=== PATIENT | female | born 1975 | race Caucasian/White ===

== ENCOUNTER 2020-06-03 01:01 | Emergency (ER) | payer OTHER, SELFPAY ==
--- NOTE | 2020-06-03 01:08 | ED.HA ---
HPI - Headache General Chief Complaint: Headache Stated Complaint: MIGRAINE Time Seen by Provider: 06/03/20 01:08 Source: patient Mode of arrival: ambulatory Limitations: no limitations History of Present Illness MD elicited complaint: headache Pertinent past history: migraines Onset (ago): hour(s) (3) Onset description: gradually Location: frontal and occipital Severity: moderate Quality & Timing: throbbing and similar to previous headaches Exacerbating factors: none Relieving factors: rest and dark room Context: occurred at rest Associated symptoms: nausea and photophobia Treatments prior to arrival: none Related Data Previous Rx's Medication Instructions Recorded [id number]-[id number]-ctao 1 tab PO Q6H PRN #20 tab 06/03/20 cyclobenzaprine 10 mg PO TID PRN #14 tab 06/03/20 ondansetron 4 mg PO Q8H PRN #20 tab 06/03/20 Allergies Allergy/AdvReac Type Severity Reaction Status Date / Time aspirin [ASPIRIN] Allergy Unknown ASTHMA Unverified 04/21/20 17:29 gabapentin [From NEURONTIN] Allergy Unknown SI Unverified 04/21/20 17:29 ibuprofen Allergy Unknown Verified 03/02/19 00:00 nortriptyline [NORTRIPTYLINE] Allergy Unknown HIVES Unverified 04/21/20 17:29 NSAIDS (Non-Steroidal Allergy Unknown BLEEDING/ Unverified 04/21/20 17:29 Anti-Inflamma ASTHMA [NSAIDS] EXACERBATION Sulfa (Sulfonamide Allergy Unknown DEPRESSION Unverified 04/21/20 17:29 Antibiotics) [SULFA (SULFONAMIDE ANTIBIOTICS)] tramadol [TRAMADOL] Allergy Unknown WHEEZES Unverified 04/21/20 17:29 enoxaparin AdvReac Severe STATES SHE Unverified 04/21/20 17:29 HAS SEVERE BLEEDING heparin [HEPARIN] AdvReac Severe STATES SHE Unverified 04/21/20 17:29 HAS SEVERE BLEEDING SEAFOOD Allergy Intermediate BREATHING Uncoded 04/21/20 17:29 BLOOD THINNERS Allergy Unknown UNABLE DUE Uncoded 04/21/20 17:29 TO STROKE Review of Systems Review of Systems: Constitutional : No Fever, No Chills, No Fatigue ENT/Mouth : No sore throat, No Rhinorrhea Eyes: No Eye Pain, No Swelling, No Redness, pos photophobia Cardiovascular : No Chest Pain, No SOB, No Dyspnea on Exertion Respiratory : No Cough, No Sputum Gastrointestinal : pos Nausea, pos Vomiting, No Diarrhea, No abdominal Pain Genitourinary : No Dysuria, No Urinary Frequency, No Hematuria, Musculoskeletal : No joint pain, No Myalgias, No Joint Swelling Skin : No Skin Lesions, No rash Neuro : No Weakness, No Numbness, No Dizziness, positive Headache Psych : No Anxiety/Panic, No Depression Heme/Lymph: No Bruising, No Bleeding,No Lymphadenopathy Endocrine : No Polyuria, No Polydipsia All other systems reviewed and are negative [facility] Past Medical History Medical History Avascular necrosis of bone of left hip Carcinoid tumor Chronic back pain Depression Hemorrhagic cerebrovascular accident (CVA) Migraines Seizures Social History Social History (Updated 06/03/20 @ 01:17 by Barbara Jimenez DO) Alcohol intake: never Smoking Status: Current every day smoker Advance Directives: No Advance Directives Information Provided: No Physical Exam Vital Signs: Vital Signs: Vital Signs Temp Pulse Resp BP Pulse Ox 06/03/20 01:47 98.8 F 64 16 137/81 100 Body Mass Index 34.2 Appearance: Alert. Oriented X3. No acute distress. Eyes: Pupils equal, round and reactive to light. photophobia ENT: Pharynx normal. Neck: Normal inspection. Neck supple. no meningeal signs CVS: Normal heart rate and rhythm. Pulses normal. Respiratory: No respiratory distress. Breath sounds normal. Abdomen: Soft and nontender. Skin: Skin warm and dry. Normal skin color. Normal skin turgor. Extremities: No lower extremity edema. No calf ttp Neuro: Oriented X 3. No motor deficit. No sensory deficit. Course Course Course Narrative: patient feels better, stable for DC MDM - Headache MDM Narrative Medical decision making narrative: 44 yo female with headaches, prior hemorrhagic stroke, chronic migraines since stroke 3 hours tonight of typical migraine taking tylenol without relief, neuro intact, given chronic headaches and typical for her doubt ICH, no fevers/meningeal signs doubt [employer] infection, at this time will order medications for pain, no AC therapy Discharge Plan Discharge Clinical Impression: Migraine Qualifiers: Migraine type: unspecified Status migrainosus presence: without status migrainosus Intractability: not intractable Qualified Code(s): G43.909 - Migraine, unspecified, not intractable, without status migrainosus Patient Disposition: Home, Self-Care Instructions: Migraine Headache (ED), Acute Headache (ED) Additional Instructions: return to ED for any worsening symptoms or concerns Prescriptions: New cyclobenzaprine 10 mg tablet 10 mg PO TID PRN (Reason: muscle spasm) Qty: 14 RF: 0 ondansetron 4 mg tablet,disintegrating 4 mg PO Q8H PRN (Reason: nausea and vomiting) Qty: 20 RF: 0 rrcggovcpb-tefmnhxhuwlhi-nfnu 50-325-40 mg tablet 1 tab PO Q6H PRN (Reason: pain) Qty: 20 RF: 0 Referrals: Physician,Unknown [Primary Care Provider] - 2 days (PCP if not better)
[2020-06-03 01:47] VITALS: BP 137/81; PULSE 64; RESP 16; TEMP 37.1; O2SAT 100; BMI 34.2
[2020-06-03] MEDS: diphenhydrAMINE HCL 50 MG/ML VIAL 25 MG IVPUSH (02:06)
[2020-06-03] MEDS: 0.9 % Sodium Chloride 1,000 ML 999 ML IVCONT (02:06)
[2020-06-03] MEDS: Magnesium Sulfate/H2O 2 GM/50 ML PIGGYBACK IV (02:07)
[2020-06-03] MEDS: Metoclopramide HCl 10 MG/2 ML VIAL IVPUSH (02:07)
--- NOTE | 2020-06-03 02:08 | PC.NURSE ---
PT MEDICATED PER MAR, AWAITING IMPROVEMENT IN SYMPTOMS. REQUESTING COVID SWAB, DENIES SICK CONTACTS. JUST WANTS TO BE SURE. MD NOTIFIED, SWAB TO BE OBTAINED.
--- NOTE | 2020-06-03 02:56 | PC.NURSE ---
PT RESTING IN BED LIGHTS OFF SKIN PWD RESPIRATIONS EVEN UNLABORED. AWAITING FOR FURTHER IMPROVEMENT IN SYMPTOMS AND MD REEVAL.
[2020-06-03] MEDS: LORazepam 2 MG/ML VIAL 1 MG IVPUSH (03:33)
[2020-06-03 03:35] VITALS: BP 117/67; PULSE 60; RESP 18; TEMP 36.6; O2SAT 96
== END 2020-06-03 03:43 | disposition home or self-care (01) ==
PROVIDERS: Emergency Provider Emergency Medicine
DX: G43.909 Migraine, unspecified, not intractable, without status migrainosus (principal); F17.200 Nicotine dependence, unspecified, uncomplicated; Z11.59 Encounter for screening for other viral diseases; Z71.6 Tobacco abuse counseling; Z79.899 Other long term (current) drug therapy
CPT/HCPCS: 96365; 96366; 96375; 99284; J1200; J2060; J2765; J3475; U0003

== ENCOUNTER 2020-07-27 16:46 | Emergency (ER) | payer OTHER, SELFPAY ==
[2020-07-27 16:55] VITALS: BP 185/97; PULSE 82; RESP 16; TEMP 36.8; O2SAT 100; BMI 34.2
[2020-07-27 17:10] VITALS: BP 147/88; PULSE 68; RESP 18; TEMP 36.9; O2SAT 100; BMI 34.2
--- NOTE | 2020-07-27 17:11 | ED_ITS ---
HPI - Headache General Chief Complaint: Headache Stated Complaint: migraine Time Seen by Provider: 07/27/20 17:06 Source: patient Mode of arrival: ambulatory Limitations: no limitations History of Present Illness HPI Narrative: 45-year-old female presented with 2 days of headache, nausea, vomiting, and photophobia. Patient had a prior episode of migraines in the past usually get nerve block for her regular migraine but unable to schedule for because the COVID-19 outbreak, patient stated that the headache she has today is typical for her regular migraines. Describes the headache as constant for 2 days, it fluctuated 20 to severe it is 8/10. Has no fever or chills. Related Data Previous Rx's Medication Instructions Recorded jdzsaqgsig-pgamidnuholfs-tjdy 1 tab PO Q6H PRN #20 tab 06/03/20 cyclobenzaprine 10 mg PO TID PRN #14 tab 06/03/20 ondansetron 4 mg PO Q8H PRN #20 tab 06/03/20 Allergies Allergy/AdvReac Type Severity Reaction Status Date / Time aspirin [ASPIRIN] Allergy Unknown ASTHMA Verified 07/27/20 16:58 gabapentin [From NEURONTIN] Allergy Unknown SI Verified 07/27/20 16:58 ibuprofen Allergy Unknown Unknown Verified 07/27/20 16:58 nortriptyline [NORTRIPTYLINE] Allergy Unknown HIVES Verified 07/27/20 16:58 NSAIDS (Non-Steroidal Allergy Unknown BLEEDING/ Verified 07/27/20 16:58 Anti-Inflamma ASTHMA [NSAIDS] EXACERBATION Sulfa (Sulfonamide Allergy Unknown DEPRESSION Verified 07/27/20 16:58 Antibiotics) [SULFA (SULFONAMIDE ANTIBIOTICS)] tramadol [TRAMADOL] Allergy Unknown WHEEZES Verified 07/27/20 16:58 enoxaparin AdvReac Severe STATES SHE Verified 07/27/20 16:58 HAS SEVERE BLEEDING heparin [HEPARIN] AdvReac Severe STATES SHE Verified 07/27/20 16:58 HAS SEVERE BLEEDING SEAFOOD Allergy Intermediate BREATHING Uncoded 07/27/20 16:58 BLOOD THINNERS Allergy Unknown UNABLE DUE Uncoded 07/27/20 16:58 TO STROKE Review of Systems Review of Systems: All other systems are reviewed and are negative Constitutional: Reports as per HPI and Reports no additional constitutional complaints Eyes: Reports as per HPI and Reports no additional eye complaints Reports system reviewed and no additional complaints, except as documented Cardiovascular: Reports as per HPI and Reports no additional cardiovascular complaints Respiratory: Reports as per HPI and Reports no additional respiratory complaints Gastrointestinal: Reports as per HPI and Reports no additional gastrointestinal complaints Genitourinary: Reports no additional female genitourinary complaints Musculoskeletal: Reports no additional musculoskeletal complaints Skin/Breast: Reports system reviewed and no additional complaints, except as docu Psychiatric: Reports no additional psychiatric complaints Endocrine: Reports no additional endocrine complaints Hematologic/Lymphatic: Reports no additional hematologic/lymphatic complaints Allergic/Immunologic: Reports no additional allergic/immunologic complaints Reports system reviewed and no additional complaints, except as documented and Reports Abnormal speech present [facility] Past Medical History Medical History Avascular necrosis of bone of left hip Carcinoid tumor Chronic back pain Depression Hemorrhagic cerebrovascular accident (CVA) Migraines Seizures Social History Social History Alcohol intake: never Smoking Status: Current some day smoker Use of substances other than those prescribed or required for medical reasons: No Advance Directives: No Advance Directives Information Provided: No Physical Exam Vital Signs: Vital Signs: Last Vital Signs Temp 98.2 F 07/27/20 19:50 Pulse 58 07/27/20 19:50 Resp 20 07/27/20 19:50 BP 145/83 H 07/27/20 19:50 Pulse Ox 100 07/27/20 19:50 Body Mass Index 34.2 Vital signs have been reviewed as normal and appeared to be correct. Blood pressure on the high range. Heart rate normal. Respiration rate normal. Temperature normal. Oxygen saturation normal. Appearance: Alert. Oriented X3. No acute distress. Head: Normal external exam. Normocephalic. Atraumatic. No Gallardo signs noted. No raccoon eyes noted Eyes: PERRLA. EOMI. Conjunctiva and sclera normal. Eyelids normal. ENT: EAC normal. TM's Normal. Pharynx normal. Uvula midline. Moist mucous membranes. No trismus noted. No drooling noted. No muffled voice noted. Neck: Normal inspection. Neck supple. FROM. No adenopathy. Thyroid Normal. No meningeal signs. No neck mass noted. CVS: Normal heart rate and rhythm. Heart sound normal. No murmurs noted. Pulses normal throughout. Respiratory: No respiratory distress. Painless inspiration. Breath sounds normal. No wheezes/rales/rhonchi noted. Chest nontender. No accessory muscle usage noted or decreased air movement noted. Abdomen: Soft and nontender. Bowel sounds normal in all 4 quadrants. No distention noted. No organomegaly noted. No visible injury noted. Back: No CVA tenderness. Full range of motion noted. Skin: Skin warm and dry. Normal skin color. Normal skin turgor. No rashes/lesions/lacerations noted. Extremities: No lower extremity edema. Extremities exhibit normal range of motion. Extremities nontender. Neuro: Oriented X 3. No motor deficit. No sensory deficit. Reflexes normal. MDM - Headache MDM Narrative Medical decision making narrative: 45-year-old female with history of chronic migraines presented with headache for the past 2 days. Patient had unremarkable neuro exam, plain CT of the head showed no hemorrhage, patient had CT of the head and neck showed no cerebral aneurysms. Patient require multiple doses of morphine/Dilaudid in the emergency department to control her migraines. Patient will be discharged home and follow-up with neurologist. Lab Data Result diagrams: 07/27/20 19:28 07/27/20 19:28 Labs: Lab Results 07/27/20 07/27/20 Range/Units 19:28 19:28 WBC 8.4 (4.8-10.8) X10*3/uL RBC 4.75 (4.20-5.50) X10*6/uL Hgb 13.3 (12.0-16.0) g/dl Hct 41.8 (37-47) % MCV 88.0 (80-98) fL MCH 28.0 (27.0-33.0) pg MCHC 31.8 (31.0-35.0) g/dl RDW 13.2 (11.0-16.0) % Plt Count 178 (160-400) X10*3/uL MPV 10.4 (9.4-12.3) fL Immature Gran % (Auto) 0.4 (0.0-0.4) % Neut % (Auto) 61.7 (45-73) % Lymph % (Auto) 31.6 (20-40) % [place] % (Auto) 4.5 (2-11) % Eos % (Auto) 1.4 (0-4) % Baso % (Auto) 0.4 (0-2) % Lymph # (Auto) 2.7 (1.2-4.9) X10*3/uL [place] # (Auto) 0.4 (0.1-1.2) X10*3/uL Eos # (Auto) 0.1 (0.0-0.4) X10*3/uL Baso # (Auto) 0.0 (0.0-0.2) X10*3/uL Abs Immat Gran (auto) 0.03 (0.00-0.03) X10*3/uL Absolute Neuts (auto) 5.2 (2.0-8.3) X10*3/uL Absolute Nucleated RBC 0.000 (0.0-0.012) X10*3/uL Nucleated RBC % (auto) 0.0 (0.0-0.2) /100WBC Sodium 143 (135-145) mmol/L Potassium 4.1 (3.3-5.1) mmol/l Chloride 108 (96-108) mmol/L Carbon Dioxide 28 (22-29) mmol/L Anion Gap 11 L (12-20) BUN 14 (9-16) mg/dL Creatinine 0.83 (0.5-1.4) mg/dL Estim Creat Clear Calc 98.9 Estimated GFR > 60 Random Glucose 95 (60-115) mg/dL Calcium 8.5 (8.4-10.2) mg/dL Imaging Data CT head/CTA head and neck.: Radiologist's impression: CT head: There is no evidence of acute intracranial hemorrhage or territorial infarction. There is no loss of morrison to white matter differentiation. No abnormal mass effect or midline shift is seen. No extra-axial fluid collections are identified. There is no abnormal enhancement. The ventricles are normal in size. There is no abnormal attenuation within the brain parenchyma. The osseous structures and soft tissues are normal. The mastoid air cells and visualized portions of the paranasal sinuses are well aerated. CTA neck: The imaged aortic arch and origins of the great vessels are normal. The common carotid arteries are widely patent. The carotid bifurcations are normal. The cervical internal carotid arteries are normal. The vertebral arteries opacify normally and are of normal caliber. The soft tissues of the neck are unremarkable. Mild spondylosis at C5-C6. The imaged portions of the lungs are clear. CTA head: The intradural vertebral arteries and basilar artery are normal. The posterior cerebral arteries are widely patent. The internal carotid arteries are of normal caliber. The MERCEDEZ and MCA vascular complexes bilaterally are normal. The venous sinuses opacify normally. Discharge Plan Discharge Clinical Impression: Headache Qualifiers: Headache type: unspecified Headache chronicity pattern: chronic headache I ntractability: not intractable Qualified Code(s): R51.9 - Headache, unspecified Migraine Qualifiers: Migraine type: unspecified Status migrainosus presence: without status migrainosus Intractability: not intractable Qualified Code(s): G43.909 - Migraine, unspecified, not intractable, without status migrainosus Patient Disposition: Home, Self-Care Instructions: Acute Headache (ED) Prescriptions: No Action cyclobenzaprine 10 mg tablet 10 mg PO TID PRN (Reason: muscle spasm) Qty: 14 RF: 0 ondansetron 4 mg tablet,disintegrating 4 mg PO Q8H PRN (Reason: nausea and vomiting) Qty: 20 RF: 0 avmfwzjips-borcvkkxexjad-vyjl 50-325-40 mg tablet 1 tab PO Q6H PRN (Reason: pain) Qty: 20 RF: 0 Referrals: Physician,Unknown [Primary Care Provider] - 2 days
[2020-07-27] MEDS: diphenhydrAMINE HCL 50 MG/ML VIAL 25 MG IVPUSH (17:34)
[2020-07-27] MEDS: ondansetron HCL 4 MG/2 ML VIAL IVPUSH (17:34)
[2020-07-27] MEDS: 0.9 % Sodium Chloride 1,000 ML 999 ML IVCONT (17:34)
--- NOTE | 2020-07-27 17:42 | PC.NURSE ---
patient a&ox3, iv inserted, pt medicated per order, lights turned down per patient request, will continue to monitor.
[2020-07-27] MEDS: Morphine Sulfate 2 MG/ML CARTRIDGE 1 MG IVPUSH (18:24)
--- NOTE | 2020-07-27 18:43 | PC.NURSE ---
pt medicated per order
--- NOTE | 2020-07-27 18:52 | CT_ITS ---
EXAMINATION: CTA OF THE HEAD AND NECK CLINICAL INFORMATION: Rule out cerebral aneurysm. COMPARISON: Head CT from 06/24/2018. TECHNIQUE: Test bolus sequences followed by intravenous administration 70 mL of Omnipaque 350. Helical imaging was performed in the axial plane from the mediastinum to the skull vertex. Delayed postcontrast imaging of the head was also performed. The data was processed at the senior nuclear medicine technologist's workstation for generation of MIP sequences. Three-dimensional volume rendered reformatted images were also generated at an offline 3-D workstation. Stenoses are assessed in accordance with NASCET criteria unless otherwise indicated. This CT examination was performed using dose optimization techniques as appropriate, variously including the following: *Automated exposure control *Adjustment of mA and/or kV according to patient size (this includes techniques or standardized protocols for targeted exams where dose is matched to indication/reason for exam; i.e. extremities or head) *Use of iterative reconstruction technique DLP: 2426 mGy-cm. FINDINGS: CT head: There is no evidence of acute intracranial hemorrhage or territorial infarction. There is no loss of morrison to white matter differentiation. No abnormal mass effect or midline shift is seen. No extra-axial fluid collections are identified. There is no abnormal enhancement. The ventricles are normal in size. There is no abnormal attenuation within the brain parenchyma. The osseous structures and soft tissues are normal. The mastoid air cells and visualized portions of the paranasal sinuses are well aerated. CTA neck: The imaged aortic arch and origins of the great vessels are normal. The common carotid arteries are widely patent. The carotid bifurcations are normal. The cervical internal carotid arteries are normal. The vertebral arteries opacify normally and are of normal caliber. The soft tissues of the neck are unremarkable. Mild spondylosis at C5-C6. The imaged portions of the lungs are clear. CTA head: The intradural vertebral arteries and basilar artery are normal. The posterior cerebral arteries are widely patent. The internal carotid arteries are of normal caliber. The MERCEDEZ and MCA vascular complexes bilaterally are normal. The venous sinuses opacify normally. CT/CT angio head neck IMPRESSION: Normal CT angiogram of the head and neck. No acute process. Imaging findings reported to Dr. Gamboa at 8:54 PM on 07/27/2020.
[2020-07-27] MEDS: HYDROmorphone HCl 1 MG/ML SYRINGE IVPUSH (19:21)
--- NOTE | 2020-07-27 19:31 | PC.NURSE ---
patient medicated per order, labs obtained, vss, will continue to monitor.
[2020-07-27 19:35] LABS: MANUAL DIFF FLAG NO
[2020-07-27 19:37] LABS: Basophils Percent Auto 0.4 % (0-2); Eosinophils Absolute Auto 0.1 X10*3/uL (0.0-0.4); Eosinophils Percent Auto 1.4 % (0-4); Hematocrit 41.8 % (37-47); Hemoglobin 13.3 g/dl (12.0-16.0); Imm Gran Abs Auto 0.03 X10*3/uL (0.00-0.03); Imm Gran Pct Auto 0.4 % (0.0-0.4); Lymphocytes Absolute Auto 2.7 X10*3/uL (1.2-4.9); Lymphocytes Percent Auto 31.6 % (20-40); Mean Corpuscular HGB Conc 31.8 g/dl (31.0-35.0); Mean Platelet Volume 10.4 fL (9.4-12.3); Monocytes Absolute Auto 0.4 X10*3/uL (0.1-1.2); Monocytes Percent Auto 4.5 % (2-11); Neutrophils Absolute Auto 5.2 X10*3/uL (2.0-8.3); Neutrophils Percent Auto 61.7 % (45-73); Platelet Count 178 X10*3/uL (160-400); Red Blood Count 4.75 X10*6/uL (4.20-5.50); Red Cell Distribution Width 13.2 % (11.0-16.0); White Blood Count 8.4 X10*3/uL (4.8-10.8)
[2020-07-27 19:50] VITALS: BP 145/83; PULSE 58; RESP 20; TEMP 36.8; O2SAT 100
[2020-07-27 19:54] LABS: Anion Gap 11 (12-20); Blood Urea Nitrogen 14 mg/dL (9-16); Calcium 8.5 mg/dL (8.4-10.2); Carbon Dioxide 28 mmol/L (22-29); Chloride 108 mmol/L (96-108); Creatinine Clr Calc Pharmacy 98.9; Estimated Glomerular Filt Rate > 60; Glucose Random 95 mg/dL (60-115); Potassium 4.1 mmol/l (3.3-5.1); Sodium 143 mmol/L (135-145)
[2020-07-27] MEDS: iohexoL 350 MG/ML 100 ML INFUS..BTL IV (20:21)
[2020-07-27] MEDS: HYDROmorphone HCl 0.5 MG/0.5 ML SYRINGE IVPUSH (21:48)
[2020-07-27 21:55] VITALS: BP 128/82; PULSE 66; RESP 18; TEMP 36.8; O2SAT 99
== END 2020-07-27 22:20 | disposition home or self-care (01) ==
PROVIDERS: Emergency Provider Emergency Medicine
DX: G43.909 Migraine, unspecified, not intractable, without status migrainosus (principal); F17.200 Nicotine dependence, unspecified, uncomplicated
CPT/HCPCS: 36415; 70496; 70498; 80048; 85025; 96361; 96374; 96375; 96376; 99284; J1170; J1200; J2270; J2405; Q9967

== ENCOUNTER 2020-11-14 15:19 | Emergency (ER) | payer OTHER, SELFPAY ==
[2020-11-14 18:03] VITALS: BP 130/62; PULSE 70; RESP 18; TEMP 36.9; O2SAT 99; BMI 31.9
== END 2020-11-14 22:17 | disposition left against medical advice (07) ==
PROVIDERS: Emergency Provider Emergency Medicine
DX: G43.909 Migraine, unspecified, not intractable, without status migrainosus (principal)
CPT/HCPCS: 99281; 99282

== ENCOUNTER 2020-12-11 08:42 | Emergency (ER) | payer OTHER, SELFPAY ==
[2020-12-11 09:07] VITALS: BP 124/77; PULSE 78; RESP 18; TEMP 37.2; O2SAT 96; BMI 31.9
--- NOTE | 2020-12-11 09:37 | ED_ITS ---
HPI - Headache General Chief Complaint: Headache Stated Complaint: headache, back pain Time Seen by Provider: 12/11/20 09:10 Source: patient Mode of arrival: ambulatory Limitations: no limitations History of Present Illness HPI Narrative: 45-year-old female who presents emergency department for evaluation of migraine headache the patient states that she gets 3-4 migraine headaches per month. The patient states that 1 week prior she was treated with an anesthetic nerve block and often this causes her to have 1 migraine before the nerve block takes affect. The patient states that often takes 2 weeks after the nerve block before the number of migraine headaches diminished. She states that the headache woke her up from sleep at 3:00 a.m.. She describes the pain as a constant, stabbing, throbbing like sensation. The headache is located in the frontal area of her head, radiates to the top of her scalp and down her neck. She has associated nausea with no vomiting. She has associated photophobia and phonophobia. She states the pain is severe and is 20/10. The patient had a previous stroke and states she has residual left-sided weakness which is unchanged. She denied fever, chills, chest pain, shortness of breath, cough, abdominal pain. Related Data Previous Rx's Medication Instructions Recorded zlkjlricdp-nxmcrkyjucrce-ipjf 1 tab PO Q6H PRN #20 tab 06/03/20 cyclobenzaprine 10 mg PO TID PRN #14 tab 06/03/20 ondansetron 4 mg PO Q8H PRN #20 tab 06/03/20 qpqbtqgsqs-pjvkcemojdigw-qgoa 1 cap PO Q4H PRN #14 cap 12/11/20 [Fioricet] Allergies Allergy/AdvReac Type Severity Reaction Status Date / Time aspirin [ASPIRIN] Allergy Unknown ASTHMA Verified 07/27/20 16:58 gabapentin [From NEURONTIN] Allergy Unknown SI Verified 07/27/20 16:58 ibuprofen Allergy Unknown Unknown Verified 07/27/20 16:58 nortriptyline [NORTRIPTYLINE] Allergy Unknown HIVES Verified 07/27/20 16:58 NSAIDS (Non-Steroidal Allergy Unknown BLEEDING/ Verified 07/27/20 16:58 Anti-Inflamma ASTHMA [NSAIDS] EXACERBATION Sulfa (Sulfonamide Allergy Unknown DEPRESSION Verified 07/27/20 16:58 Antibiotics) [SULFA (SULFONAMIDE ANTIBIOTICS)] tramadol [TRAMADOL] Allergy Unknown WHEEZES Verified 07/27/20 16:58 enoxaparin AdvReac Severe STATES SHE Verified 07/27/20 16:58 HAS SEVERE BLEEDING heparin [HEPARIN] AdvReac Severe STATES SHE Verified 07/27/20 16:58 HAS SEVERE BLEEDING SEAFOOD Allergy Intermediate BREATHING Uncoded 07/27/20 16:58 BLOOD THINNERS Allergy Unknown UNABLE DUE Uncoded 07/27/20 16:58 TO STROKE Review of Systems Review of Systems: Yes all other systems are reviewed and are negative [facility] Past Medical History [facility] Narrative: The patient states she smokes cigarettes occasionally when she is stressed out, she denies alcohol and drug use. Medical History Avascular necrosis of bone of left hip Carcinoid tumor Chronic back pain Depression Hemorrhagic cerebrovascular accident (CVA) Migraines Seizures Social History Social History Alcohol intake: never Smoking Status: Light tobacco smoker Use of substances other than those prescribed or required for medical reasons: No Advance Directives: No Advance Directives Information Provided: No Physical Exam Vital Signs: Vital Signs: Last Vital Signs Temp 98.0 F 12/11/20 12:25 Pulse 66 12/11/20 12:41 Resp 16 12/11/20 12:41 BP 110/67 12/11/20 12:41 Pulse Ox 95 12/11/20 12:41 Body Mass Index 31.9 Const: General: cooperative, healthy appearing and in distress (Secondary to migraine headache) Orientation/consciousness: oriented to person and oriented to place Limitations: no limitations HENMT: Head: Yes normal to inspection, Yes normocephalic and Yes atraumatic Ears: external ears normal General nose exam: Normal external nose present Face and sinus: Yes normal facial exam Mouth: Normal oral and palatal mucosa present Throat: Yes posterior oropharynx normal Eyes: Periorbital: periorbital findings normal Eyelids: Yes eyelids normal Conjunctivae: conjunctivae normal Sclerae: sclerae normal Corneas: corneas normal Pupils: Equal, round and reactive pupils present Direct Ophthalmoscopy: normal light reflex Neck: Neck: Yes full ROM, Yes no lymphadenopathy, Yes no meningeal signs, Yes trachea midline and Yes supple Chest: Chest palpation & inspection: normal inspection of the chest and normal palpation of entire chest wall Resp: Effort & Inspection: normal respiratory effort and able to speak in complete sentences Auscultation: clear to auscultation bilaterally Cardio: Rate: regular rate Rhythm: regular rhythm Heart sounds: S1 normal heart sound present, S2 normal heart sound present and no murmurs GI: Inspection: Yes normal to inspection Palpation (GI): Soft to palpation, nontender, no guarding, not rigid and No hepatosplenomegaly present : General: Yes no CVA tenderness Back/Spine/Pelvis: Back: no CVA tenderness Cervical Spine: normal cervical lordosis Thoracic/Lumbar Spine: thoracic and lumbar spine normal to inspection Skin: Lesions: no lesions Rashes: no rashes Wounds: no wounds Neuro: General: oriented to person, oriented to place and no meningeal signs Cranial nerves: Yes CN's II-XII intact bilaterally and Yes Equal, round and reactive pupils present Cognition (Neuro): normal cognition Gait exam (Neuro): Other gait observations present (Left upper and lower extremity weakness, chronic ) Extrem: General: Yes normal to inspection and Yes full ROM Psych: Appearance: well kempt Mental Status: mental status grossly normal Speech and movement: Normal speech and movement present Affect: normal affect Attitude: cooperative Thought process: Normal thought process present Thought content: Normal thought content present Course Course Course Narrative: 45-year-old female who presents emergency department for evaluation of severe migraine headache, she has a history of migraine headaches and received an anesthetic injection 1 week prior. Patient's physical examination did reveal left-sided weakness but this is chronic secondary to an old stroke. The patient has been treated with IV medications in the emergency department in the past for headaches. She states that she can tolerate morphine IV. She was ordered to get morphine 4 mg IV, Reglan 10 mg IV and Benadryl 50 mg IV . 1325: The patient did have some improvement after the 1st dose of morphine IV, her pain went from 20/10 to 9.5/10. She was given a 2nd dose of morphine 4 mg IV and her pain is now down to 3/10. The patient states she is feeling significantly better and does want to go home. She was advised to continue taking her migraine medications as prescribed by her providers and to follow-up with her neurologist for re-evaluation and for further treatment. Prior to discharge, patient states that she was out of here sent requested a prescription, therefore prescribed Fioricet 1 tablet every 4 hours as needed for pain dispense 14. [facility] PAT search revealed that the patient does get prescriptions from 2 providers mainly for clonazepam. Discharge Plan Discharge Clinical Impression: Migraine Qualifiers: Migraine type: without aura Status migrainosus presence: without status migrainosus Intractability: not intractable Qualified Code(s): G43.009 - M igraine without aura, not intractable, without status migrainosus Patient Disposition: Home, Self-Care Instructions: Acute Headache (ED) Additional Instructions: Continue taking your medications as prescribed by your doctor for your migraine headaches. Follow-up with your doctor in 2 days. Please return to the emergency department if your symptoms get worse or if you develop any symptoms that are concerning to you. Prescriptions: New isenopxyon-ydsfjdsyxidlz-iniv [Fioricet] 50-300-40 mg capsule 1 cap PO Q4H PRN (Reason: pain) Qty: 14 RF: 0 No Action cyclobenzaprine 10 mg tablet 10 mg PO TID PRN (Reason: muscle spasm) Qty: 14 RF: 0 ondansetron 4 mg tablet,disintegrating 4 mg PO Q8H PRN (Reason: nausea and vomiting) Qty: 20 RF: 0 hftgvopqnr-tdtgmlszozial-lyms 50-325-40 mg tablet 1 tab PO Q6H PRN (Reason: pain) Qty: 20 RF: 0 Interventions: ED Discharge Assessment Last Done: 12/11/20 13:41 Discharge Date/Time: 12/11/20 13:45
[2020-12-11] MEDS: diphenhydrAMINE HCL 50 MG/ML VIAL IVPUSH (09:50)
[2020-12-11] MEDS: 0.9 % Sodium Chloride 1,000 ML 999 ML IV ×2 (09:50→12:23)
[2020-12-11] MEDS: Metoclopramide HCl 10 MG/2 ML VIAL IVPUSH (09:52)
[2020-12-11] MEDS: Morphine Sulfate 4 MG/ML CARTRIDGE IVPUSH ×2 (09:52→12:23)
[2020-12-11 09:54] VITALS: BP 110/75; PULSE 67; RESP 17
--- NOTE | 2020-12-11 09:57 | PC.NURSE ---
Pt medicated with benedryl, morphine, and reglan. She was instructed to not get up without calling for staff help. Call smith within reach.
[2020-12-11 10:46] VITALS: BP 111/69; PULSE 66; RESP 16; O2SAT 95
--- NOTE | 2020-12-11 10:46 | PC.NURSE ---
Pt resting with eyes closed. VSS.
[2020-12-11 12:25] VITALS: BP 108/70; PULSE 59; RESP 17; TEMP 36.7; O2SAT 97
--- NOTE | 2020-12-11 12:26 | PC.NURSE ---
Pt continues to have head pain. BP trending down slightly after first round of medications. MD aware. Additional morphine and IVF ordered/given.
[2020-12-11 12:41] VITALS: BP 110/67; PULSE 66; RESP 16; O2SAT 95
== END 2020-12-11 13:45 | disposition home or self-care (01) ==
PROVIDERS: Emergency Provider Emergency Medicine Emergency Medical Services
DX: G43.009 Migraine without aura, not intractable, without status migrainosus (principal); F17.200 Nicotine dependence, unspecified, uncomplicated; Z71.6 Tobacco abuse counseling; Z79.899 Other long term (current) drug therapy
CPT/HCPCS: 96365; 96366; 96375; 99284; J1200; J2270; J2765

== ENCOUNTER 2021-03-17 20:54 | Emergency (ER) | payer OTHER, SELFPAY ==
--- NOTE | ~2021-03-17 | XR_ITS ---
EXAMINATION: XR SHOULDER, LEFT CLINICAL INFORMATION: Pain. COMPARISON: None TECHNIQUE: Four views of the left shoulder. FINDINGS: There is no fracture or dislocation. The glenohumeral joint is well aligned. The joint space is maintained. The acromioclavicular joint is intact. Bowing of the left humeral shaft. XR/XR shoulder LT min 2V IMPRESSION: No fracture or malalignment.
[2021-03-17 21:04] VITALS: BP 129/78; PULSE 86; RESP 18; TEMP 36.6; O2SAT 98; BMI 32.3
[2021-03-18 00:46] VITALS: RESP 16
[2021-03-18] MEDS: Morphine Sulfate 2 MG/ML CARTRIDGE 1 MG IM (00:46)
--- NOTE | 2021-03-18 01:11 | ED.EXTPRO ---
HPI - Extremity Problem General Chief complaint: Extremity Problem Stated complaint: SHOULDER PAIN Time Seen by Provider: 03/18/21 00:18 Source: patient Mode of arrival: ambulatory Limitations: no limitations History of Present Illness HPI Narrative: Patient comes to the emergency room complaining of left-sided shoulder pain for a week. Patient denies any injury. Patient states whenever she tries to lift up her arm it hurts. Patient denies fever chills. Patient also complaining a rash in the right inguinal area, nonpainful, erythematous, slightly uncomfortable. Related Data Home Medications Medication Instructions Recorded Confirmed albuterol sulfate 90 mcg/actuation 2 puff PO Q4H PRN 01/20/21 01/20/21 aerosol inhaler albuterol sulfate 90 mcg/actuation 2 puff PO Q4H PRN 01/20/21 01/20/21 aerosol inhaler (Ventolin HFA) atorvastatin 40 mg tablet 1 tab PO DAILY 01/20/21 01/20/21 capsicum oleoresin 0.025 % topical 2 - 4 g TOPICAL BID 01/20/21 01/20/21 cream (DermacinRx Penetral) cariprazine 1.5 mg capsule 1 cap PO DAILY 01/20/21 01/20/21 (Vraylar) cariprazine 3 mg capsule (Vraylar) 1 cap PO DAILY 01/20/21 01/20/21 clonazepam 0.5 mg tablet 0.5 - 1 tab PO BID PRN 01/20/21 01/20/21 fluticasone propionate 110 1 puff PO BID 01/20/21 01/20/21 mcg/actuation HFA aerosol inhaler (Flovent HFA) hydroxyzine pamoate 50 mg capsule 1 cap PO TID 01/20/21 01/20/21 lidocaine 5 % topical ointment 1 g TOPICAL BID PRN 01/20/21 01/20/21 loratadine 10 mg tablet 1 tab PO DAILY PRN 01/20/21 01/20/21 nicotine 7 mg/24 hr daily 1 patch TOPICAL DAILY 01/20/21 01/20/21 transdermal patch prazosin 2 mg capsule 1 cap PO BEDTIME 01/20/21 01/20/21 quetiapine 300 mg tablet 1 tab PO BEDTIME 01/20/21 01/20/21 quetiapine 50 mg tablet 1 tab PO BID PRN 01/20/21 01/20/21 tizanidine 6 mg capsule 1 cap PO TID 01/20/21 01/20/21 topiramate 100 mg tablet 100 mg PO TID PRN 01/20/21 01/20/21 venlafaxine 150 mg 150 cap PO DAILY 01/20/21 01/20/21 capsule,extended release 24 hr venlafaxine 37.5 mg 1 cap PO DAILY 01/20/21 01/20/21 capsule,extended release 24 hr Previous Rx's Medication Instructions Recorded ondansetron 4 mg disintegrating 4 mg PO Q8H PRN #20 tab 06/03/20 tablet acetaminophen 500 mg capsule 500 mg PO Q6H PRN #10 cap 03/18/21 butenafine 1 % topical cream 1 appl TOPICAL BID 7 Days #30 g 03/18/21 (Lotrimin Ultra) Allergies Allergy/AdvReac Type Severity Reaction Status Date / Time aspirin [ASPIRIN] Allergy Unknown ASTHMA Verified 07/27/20 16:58 gabapentin [From NEURONTIN] Allergy Unknown SI Verified 07/27/20 16:58 ibuprofen Allergy Unknown Unknown Verified 07/27/20 16:58 nortriptyline [NORTRIPTYLINE] Allergy Unknown HIVES Verified 07/27/20 16:58 NSAIDS (Non-Steroidal Allergy Unknown BLEEDING/ Verified 07/27/20 16:58 Anti-Inflamma ASTHMA [NSAIDS] EXACERBATION Sulfa (Sulfonamide Allergy Unknown DEPRESSION Verified 07/27/20 16:58 Antibiotics) [SULFA (SULFONAMIDE ANTIBIOTICS)] tramadol [TRAMADOL] Allergy Unknown WHEEZES Verified 07/27/20 16:58 enoxaparin AdvReac Severe STATES SHE Verified 07/27/20 16:58 HAS SEVERE BLEEDING heparin [HEPARIN] AdvReac Severe STATES SHE Verified 07/27/20 16:58 HAS SEVERE BLEEDING SEAFOOD Allergy Intermediate BREATHING Uncoded 07/27/20 16:58 BLOOD THINNERS Allergy Unknown UNABLE DUE Uncoded 07/27/20 16:58 TO STROKE Review of Systems Review of Systems: Constitutional : No Weight loss, No Fever, No Chills, No Night Sweats, No Fatigue, No Malaise ENT/Mouth : No Hearing loss, No Ear Pain, No Nasal Congestion, No Sinus Pain, No Hoarseness, No sore throat, No Rhinorrhea, No Swallowing Difficulty Eyes: No Eye Pain, No Swelling, No Redness, No Foreign Body, No Discharge, No Vision Changes Cardiovascular : No Chest Pain, No SOB, No Dyspnea on Exertion, No Orthopnea, No Edema, No Palpitations Respiratory : No Cough, No Sputum, No Wheezing, No Smoke Exposure, No Dyspnea Gastrointestinal : No Nausea, No Vomiting, No Diarrhea, No Constipation, No abdominal Pain, No Hematochezia, No Melena Genitourinary : no irregular bleeding, No Dysuria, No Urinary Frequency, No Hematuria, No Urinary Incontinence, No Urgency, No Flank Pain, No Urinary Flow Changes, No Hesitancy Musculoskeletal : Complaining of left-sided shoulder pain No Myalgias, No Joint Swelling Skin : Complaining of an erythematous, slightly smelly rash in the right groin area Neuro : No Weakness, No Numbness, No Paresthesias, No Loss of Consciousness, No Dizziness, No Headache Psych : No Anxiety/Panic, No Depression, No SI/HI/AH/VH, No Social Issues, Heme/Lymph: No Bruising, No Bleeding,No Lymphadenopathy Endocrine : No Polyuria, No Polydipsia, No Temperature Intolerance [facility] Past Medical History Medical History Avascular necrosis of bone of left hip Carcinoid tumor Cervical cancer Chronic back pain Depression Hemorrhagic cerebrovascular accident (CVA) Migraines Seizures Surgical History H/O bilateral salpingo-oophorectomy History of appendectomy History of hysterectomy Social History Social History Alcohol intake: never Advance Directives: No Advance Directives Information Provided: No Patient : No Physical Exam Vital Signs: Vital Signs: Last Vital Signs Temp 98 F 03/17/21 21:04 Pulse 86 03/17/21 21:04 Resp 16 03/18/21 00:46 BP 129/78 03/17/21 21:04 Pulse Ox 98 03/17/21 21:04 Body Mass Index 32.3 Const: Other: Appearance: Alert. Oriented X3. No acute distress. Eyes: Pupils equal, round and reactive to light. ENT: Pharynx normal. Neck: Normal inspection. Neck supple. No lymph nodes noted. No crepitus CVS: Normal heart rate and rhythm. Pulses normal. Normal S1 and S2 Respiratory: No respiratory distress. Breath sounds normal. No Wheezing. No rales Abdomen: Soft and nontender. No rigidity. No distention. good BS x4 Skin: Skin warm and dry. Patient has candidal dermatitis in the right inguinal area, no vesicles, no painful to touch Extremities: Left shoulder is not tender to palpation, only hurts with shoulder abduction, no deformity, no erythema, no additional warmth Neuro: Oriented X 3. No motor deficit. No sensory deficit. Moving all extermities. No slurred speech. Course Course Course Narrative: I discussed the x-ray with the patient, no acute findings. I discussed the physical exam with the patient, patient likely having bursitis. I discussed with the patient that she will benefit from physical therapy and joint injections, she may need an MRI of her shoulder. I discussed with the patient she has Romy dermatitis. Patient states she has noticed this more often in her skin on skin folds after she started losing weight Ice into the patient's pharmacy tramadol, patient cannot take NSAIDs due to history of hemorrhagic CVA Discharge Plan Discharge Clinical Impression: Candidiasis Left shoulder pain Qualifiers: Chronicity: unspecified Qualified Code(s): M25.512 - Pain in left shoulder Patient Disposition: Home, Self-Care Instructions: Shoulder Bursitis (ED), Yeast Infection (ED) Additional Instructions: Please follow-up with your primary care physician tomorrow. If you have any worsening or new symptoms, please return to the emergency room or call 911 Prescriptions: New acetaminophen 500 mg capsule 500 mg PO Q6H PRN (Reason: pain) Qty: 10 RF: 0 butenafine [Lotrimin Ultra] 1 % cream 1 appl topical BID 7 Days Qty: 30 RF: 0 No Action atorvastatin 40 mg tablet 1 tab PO DAILY RF: 0 venlafaxine 37.5 mg capsule,extended release 24hr 1 cap PO DAILY RF: 0 quetiapine 300 mg tablet 1 tab PO BEDTIME RF: 0 clonazepam 0.5 mg tablet 0.5 - 1 tab PO BID PRN (Reason: panic attack) RF: 0 venlafaxine 150 mg capsule,extended release 24hr 150 cap PO DAILY RF: 0 hydroxyzine pamoate 50 mg capsule 1 cap PO TID RF: 0 albuterol sulfate [Ventolin HFA] 90 mcg/actuation HFA aerosol inhaler 2 puff PO Q4H PRN (Reason: wheezing) RF: 0 albuterol sulfate 90 mcg/actuation HFA aerosol inhaler 2 puff PO Q4H PRN (Reason: wheezing) RF: 0 topiramate 100 mg tablet 100 mg PO TID PRN (Reason: Anxiety) RF: 0 loratadine 10 mg tablet 1 tab PO DAILY PRN (Reason: allergies) RF: 0 prazosin 2 mg capsule 1 cap PO BEDTIME RF: 0 Flovent HFA 110 mcg/actuation HFA aerosol inhaler 1 puff PO BID RF: 0 nicotine 7 mg/24 hr patch 24 hour 1 patch topical DAILY RF: 0 tizanidine 6 mg capsule 1 cap PO TID RF: 0 quetiapine 50 mg tablet 1 tab PO BID PRN (Reason: Anxiety) RF: 0 lidocaine 5 % ointment 1 g topical BID PRN (Reason: Back Pain) RF: 0 Vraylar 1.5 mg capsule 1 cap PO DAILY RF: 0 Vraylar 3 mg capsule 1 cap PO DAILY RF: 0 DermacinRx Penetral 0.025 % cream 2 - 4 g topical BID RF: 0 ondansetron 4 mg tablet,disintegrating 4 mg PO Q8H PRN (Reason: nausea and vomiting) Qty: 20 RF: 0
== END 2021-03-18 01:22 | disposition home or self-care (01) ==
PROVIDERS: Emergency Provider Emergency Medicine
DX: M25.512 Pain in left shoulder (principal); B37.9 Candidiasis, unspecified
CPT/HCPCS: 73030; 96372; 99283; 99284; J2270

== ENCOUNTER 2021-05-03 10:44 | Emergency (ER) | payer OTHER, SELFPAY ==
--- NOTE | 2021-05-03 | ECG_ITS ---
Test Reason : CHEST PAIN Blood Pressure : / mmHG Vent. Rate : 081 BPM Atrial Rate : 081 BPM P-R Int : 000 ms QRS Dur : 072 ms QT Int : 400 ms P-R-T Axes : 000 040 051 degrees QTc Int : 464 ms Normal sinus rhythm Normal ECG When compared with ECG of 01-APR-2020 23:04, No significant change was found Referred By: Generic ED Physician Electronically Signed By:ROLA YORK
--- NOTE | ~2021-05-03 | XR_ITS ---
EXAMINATION: XR CHEST CLINICAL INFORMATION: Chest pain COMPARISON: Previous chest x-ray March 2016 TECHNIQUE: Frontal view of the chest was obtained. FINDINGS: No significant abnormality is noted involving the heart, lungs, mediastinum, bony thorax or soft tissues. XR/XR chest 1V IMPRESSION: Unremarkable examination.
--- NOTE | ~2021-05-03 | CT_ITS ---
EXAMINATION: CT HEAD WITHOUT CONTRAST CLINICAL INFORMATION: Severe headache COMPARISON: Previous head CT March 2018 TECHNIQUE: Contiguous axial imaging was performed from the skull base to vertex without intravenous administration of contrast. This CT examination was performed using dose optimization techniques as appropriate, variously including the following: *Automated exposure control *Adjustment of mA and/or kV according to patient size (this includes techniques or standardized protocols for targeted exams where dose is matched to indication/reason for exam; i.e. extremities or head) *Use of iterative reconstruction technique DLP: 715 mGy-cm FINDINGS: There is no evidence of acute intracranial hemorrhage or territorial infarction. No abnormal mass effect or midline shift is seen. [place] to white matter differentiation is well preserved. No extra-axial fluid collections are identified. The ventricles are normal in size. There is no abnormal attenuation within the brain parenchyma. The osseous structures and soft tissues are normal. The mastoid air cells and visualized portions of the paranasal sinuses are clear. CT/CT head/brain wo con IMPRESSION: Unremarkable exam.
[2021-05-03 11:42] VITALS: BP 128/80; PULSE 79; RESP 18; TEMP 37.2; O2SAT 99; BMI 33.5
--- NOTE | 2021-05-03 12:25 | ED.GENADULT ---
HPI - General Adult General Chief complaint: Headache Stated complaint: headache, chest pain Time Seen by Provider: 05/03/21 12:15 Source: patient History of Present Illness HPI narrative: This is a 45-year-old female with history of migraine headaches who complains of migraine that came on suddenly around midnight. She rates the headache as a 10/10 and has not experienced 1 this severe previously. Patient also notes that about 03:00 o'clock in morning she developed chest pain, like somebody sitting on her chest, off and on. She has had associated nausea and vomiting. She feels little short of breath. She notes that the light bothers her eyes. She states the pain radiates to the back of her neck. She also felt tingling in her fingers especially on the left-hand. She does have a history of elevated cholesterol and states that she had a mild heart attack a year and a half ago. She does smoke tobacco, but only when she is under stress at this point. She is to be a heavier smoker. Related Data Home Medications Medication Instructions Recorded Confirmed albuterol sulfate 90 mcg/actuation 2 puff PO Q4H PRN 01/20/21 01/20/21 aerosol inhaler albuterol sulfate 90 mcg/actuation 2 puff PO Q4H PRN 01/20/21 01/20/21 aerosol inhaler (Ventolin HFA) atorvastatin 40 mg tablet 1 tab PO DAILY 01/20/21 01/20/21 capsicum oleoresin 0.025 % topical 2 - 4 g TOPICAL BID 01/20/21 01/20/21 cream (DermacinRx Penetral) cariprazine 1.5 mg capsule 1 cap PO DAILY 01/20/21 01/20/21 (Vraylar) cariprazine 3 mg capsule (Vraylar) 1 cap PO DAILY 01/20/21 01/20/21 clonazepam 0.5 mg tablet 0.5 - 1 tab PO BID PRN 01/20/21 01/20/21 fluticasone propionate 110 1 puff PO BID 01/20/21 01/20/21 mcg/actuation HFA aerosol inhaler (Flovent HFA) hydroxyzine pamoate 50 mg capsule 1 cap PO TID 01/20/21 01/20/21 lidocaine 5 % topical ointment 1 g TOPICAL BID PRN 01/20/21 01/20/21 loratadine 10 mg tablet 1 tab PO DAILY PRN 01/20/21 01/20/21 nicotine 7 mg/24 hr daily 1 patch TOPICAL DAILY 01/20/21 01/20/21 transdermal patch prazosin 2 mg capsule 1 cap PO BEDTIME 01/20/21 01/20/21 quetiapine 300 mg tablet 1 tab PO BEDTIME 01/20/21 01/20/21 quetiapine 50 mg tablet 1 tab PO BID PRN 01/20/21 01/20/21 tizanidine 6 mg capsule 1 cap PO TID 01/20/21 01/20/21 topiramate 100 mg tablet 100 mg PO TID PRN 01/20/21 01/20/21 venlafaxine 150 mg 150 cap PO DAILY 01/20/21 01/20/21 capsule,extended release 24 hr venlafaxine 37.5 mg 1 cap PO DAILY 01/20/21 01/20/21 capsule,extended release 24 hr Previous Rx's Medication Instructions Recorded ondansetron 4 mg disintegrating 4 mg PO Q8H PRN #20 tab 06/03/20 tablet acetaminophen 500 mg capsule 500 mg PO Q6H PRN #10 cap 03/18/21 butenafine 1 % topical cream 1 appl TOPICAL BID 7 Days #30 g 03/18/21 (Lotrimin Ultra) prochlorperazine maleate 10 mg 10 mg PO Q6H PRN #10 tab 05/03/21 tablet (Compazine) Allergies Allergy/AdvReac Type Severity Reaction Status Date / Time aspirin [ASPIRIN] Allergy Unknown ASTHMA Verified 07/27/20 16:58 gabapentin [From NEURONTIN] Allergy Unknown SI Verified 07/27/20 16:58 ibuprofen Allergy Unknown Unknown Verified 07/27/20 16:58 nortriptyline [NORTRIPTYLINE] Allergy Unknown HIVES Verified 07/27/20 16:58 NSAIDS (Non-Steroidal Allergy Unknown BLEEDING/ Verified 07/27/20 16:58 Anti-Inflamma ASTHMA [NSAIDS] EXACERBATION Sulfa (Sulfonamide Allergy Unknown DEPRESSION Verified 07/27/20 16:58 Antibiotics) [SULFA (SULFONAMIDE ANTIBIOTICS)] tramadol [TRAMADOL] Allergy Unknown WHEEZES Verified 07/27/20 16:58 enoxaparin AdvReac Severe STATES SHE Verified 12/23/20 16:58 HAS SEVERE BLEEDING heparin [HEPARIN] AdvReac Severe STATES SHE Verified 07/27/20 16:58 HAS SEVERE BLEEDING SEAFOOD Allergy Intermediate BREATHING Uncoded 07/27/20 16:58 BLOOD THINNERS Allergy Unknown UNABLE DUE Uncoded 07/27/20 16:58 TO STROKE Review of Systems Review of Systems: Yes all other systems are reviewed and are negative Constitutional: Constitutional: Reports as per HPI, Denies fever(s) and Reports headache(s) Eyes: Eyes: Reports as per HPI and Reports no additional eye complaints ENT: Reports system reviewed and no additional complaints, except as documented, Reports as per HPI, Reports headache(s), Denies nasal congestion, Denies nasal discharge and Denies sore throat Cardiovascular: Cardiovascular: Reports as per HPI, Reports chest pain and Reports dyspnea Respiratory: Respiratory: Reports as per HPI, Denies cough and Reports dyspnea Gastrointestinal: Gastrointestinal: Reports as per HPI, Denies abdominal pain, Denies diarrhea, Reports nausea and Reports vomiting Genitourinary: Genitourinary: Reports as per HPI, Denies hematuria, Denies urinary frequency and Denies dysuria Musculoskeletal: Musculoskeletal: Reports no additional musculoskeletal complaints and Denies numbness Integumentary/Breasts: Skin/Breast: Reports as per HPI and Denies rash Neurologic: Reports as per HPI, Reports headache(s), Denies focal weakness, Denies numbness and Reports paresthesias Psychiatric: Psychiatric: Reports no additional psychiatric complaints and Reports as per HPI Endocrine: Endocrine: Reports no additional endocrine complaints and Reports as per HPI Hematologic/Lymphatic: Hematologic/Lymphatic: Reports no additional hematologic/lymphatic complaints, Reports as per HPI and Reports other (No peripheral edema) [facility] Past Medical History Medical History Avascular necrosis of bone of left hip Carcinoid tumor Cervical cancer Chronic back pain Depression Hemorrhagic cerebrovascular accident (CVA) Migraines Seizures Surgical History H/O bilateral salpingo-oophorectomy History of appendectomy History of hysterectomy Social History Social History Alcohol intake: never Advance Directives: No Patient : No Physical Exam Vital Signs: Vital Signs: Last Vital Signs Temp 98.1 F 05/03/21 14:14 Pulse 60 05/03/21 14:14 Resp 14 05/03/21 14:14 BP 99/54 L 05/03/21 14:14 Pulse Ox 97 05/03/21 14:14 Body Mass Index 33.5 Medical Decision Making MDM Narrative Medical decision making narrative: Patient with severe migraine headache, and later chest discomfort. Patient felt much better after medication was able to fall asleep. CT of the brain negative. Labs unremarkable. EKG and troponin were not concerning for acute coronary syndrome. Patient is safe for outpatient follow-up Lab Data Result diagrams: 05/03/21 12:39 05/03/21 12:39 Labs: Lab Results 05/03/21 05/03/21 05/03/21 Range/Units 12:39 12:39 12:39 WBC 13.9 H (4.8-10.8) X10*3/uL RBC 4.80 (4.20-5.50) X10*6/uL Hgb 13.6 (12.0-16.0) g/dl Hct 41.8 (37-47) % MCV 87.1 (80-98) fL MCH 28.3 (27.0-33.0) pg MCHC 32.5 (31.0-35.0) g/dl RDW 14.6 (11.0-16.0) % Plt Count 243 D (160-400) X10*3/uL MPV 9.9 (9.4-12.3) fL Immature Gran % (Auto) 0.6 H (0.0-0.4) % Neut % (Auto) 68.8 (45-73) % Lymph % (Auto) 24.3 (20-40) % [place] % (Auto) 5.6 (2-11) % Eos % (Auto) 0.6 (0-4) % Baso % (Auto) 0.1 (0-2) % Lymph # (Auto) 3.4 (1.2-4.9) X10*3/uL [place] # (Auto) 0.8 (0.1-1.2) X10*3/uL Eos # (Auto) 0.1 (0.0-0.4) X10*3/uL Baso # (Auto) 0.0 (0.0-0.2) X10*3/uL Abs Immat Gran (auto) 0.09 H (0.00-0.03) X10*3/uL Absolute Neuts (auto) 9.6 H (2.0-8.3) X10*3/uL Absolute Nucleated RBC 0.000 (0.0-0.012) X10*3/uL Nucleated RBC % (auto) 0.0 (0.0-0.2) /100WBC Sodium 142 (135-145) mmol/L Potassium 4.2 (3.3-5.1) mmol/L Chloride 108 (96-108) mmol/L Carbon Dioxide 27 (22-29) mmol/L Anion Gap 11 L (12-20) BUN 20 H (9-16) mg/dL Creatinine 0.82 (0.5-1.4) mg/dL Estim Creat Clear Calc 99.2 Estimated GFR > 60 Random Glucose 92 (60-115) mg/dL Calcium 9.3 (8.4-10.2) mg/dL Total Bilirubin 0.4 (0.0-1.0) mg/dL AST 14 (5-31) U/L ALT 19 (0-31) U/L Alkaline Phosphatase 103 (39-117) U/L Troponin I High Sens < 3.5 (<3.5-17.0) ng/L Total Protein 6.7 (6.5-8.0) g/dL Albumin 4.0 (3.5-5.0) g/dL Imaging Data CT scan - head: Radiologist's impression: here is no evidence of acute intracranial hemorrhage or territorial infarction. No abnormal mass effect or midline shift is seen. [place] to white matter differentiation is well preserved. No extra-axial fluid collections are identified. The ventricles are normal in size. There is no abnormal attenuation within the brain parenchyma. The osseous structures and soft tissues are normal. The mastoid air cells and visualized portions of the paranasal sinuses are clear. Impression: Unremarkable exam Chest x-ray: Radiologist's impression: No acute pathology ECG Data Attestation: I personally reviewed and interpreted this ECG as follows: Interpretation: Normal sinus rhythm with a rate of 81. Some baseline artifact. Possible slight ST elevation in the lateral leads Discharge Plan Discharge Clinical Impression: Migraine, Chest pain Patient Disposition: Home, Self-Care Instructions: Chest Pain (ED), Migraine Headache (ED) Additional Instructions: Follow-up with her primary care physician. Use acetaminophen for pain. Use Compazine as prescribed for nausea, which may also help with the migraine Prescriptions: New prochlorperazine maleate [Compazine] 10 mg tablet 10 mg PO Q6H PRN (Reason: nausea and vomiting) Qty: 10 RF: 0 No Action atorvastatin 40 mg tablet 1 tab PO DAILY RF: 0 venlafaxine 37.5 mg capsule,extended release 24hr 1 cap PO DAILY RF: 0 quetiapine 300 mg tablet 1 tab PO BEDTIME RF: 0 clonazepam 0.5 mg tablet 0.5 - 1 tab PO BID PRN (Reason: panic attack) RF: 0 venlafaxine 150 mg capsule,extended release 24hr 150 cap PO DAILY RF: 0 hydroxyzine pamoate 50 mg capsule 1 cap PO TID RF: 0 albuterol sulfate [Ventolin HFA] 90 mcg/actuation HFA aerosol inhaler 2 puff PO Q4H PRN (Reason: wheezing) RF: 0 albuterol sulfate 90 mcg/actuation HFA aerosol inhaler 2 puff PO Q4H PRN (Reason: wheezing) RF: 0 topiramate 100 mg tablet 100 mg PO TID PRN (Reason: Anxiety) RF: 0 loratadine 10 mg tablet 1 tab PO DAILY PRN (Reason: allergies) RF: 0 prazosin 2 mg capsule 1 cap PO BEDTIME RF: 0 Flovent HFA 110 mcg/actuation HFA aerosol inhaler 1 puff PO BID RF: 0 nicotine 7 mg/24 hr patch 24 hour 1 patch topical DAILY RF: 0 tizanidine 6 mg capsule 1 cap PO TID RF: 0 quetiapine 50 mg tablet 1 tab PO BID PRN (Reason: Anxiety) RF: 0 lidocaine 5 % ointment 1 g topical BID PRN (Reason: Back Pain) RF: 0 Vraylar 1.5 mg capsule 1 cap PO DAILY RF: 0 Vraylar 3 mg capsule 1 cap PO DAILY RF: 0 DermacinRx Penetral 0.025 % cream 2 - 4 g topical BID RF: 0 ondansetron 4 mg tablet,disintegrating 4 mg PO Q8H PRN (Reason: nausea and vomiting) Qty: 20 RF: 0 acetaminophen 500 mg capsule 500 mg PO Q6H PRN (Reason: pain) Qty: 10 RF: 0 butenafine [Lotrimin Ultra] 1 % cream 1 appl topical BID 7 Days Qty: 30 RF: 0 Discharge Date/Time: 05/03/21 14:55
[2021-05-03] MEDS: LORazepam 2 MG/ML VIAL 0.5 MG IVPUSH (12:44)
[2021-05-03] MEDS: Prochlorperazine Edisylate 10 MG/2 ML VIAL IVPUSH (12:45)
[2021-05-03 12:52] LABS: MANUAL DIFF FLAG NO
[2021-05-03 12:59] LABS: Basophils Percent Auto 0.1 % (0-2); Eosinophils Absolute Auto 0.1 X10*3/uL (0.0-0.4); Eosinophils Percent Auto 0.6 % (0-4); Hematocrit 41.8 % (37-47); Hemoglobin 13.6 g/dl (12.0-16.0); Imm Gran Abs Auto 0.09 X10*3/uL (0.00-0.03); Imm Gran Pct Auto 0.6 % (0.0-0.4); Lymphocytes Absolute Auto 3.4 X10*3/uL (1.2-4.9); Lymphocytes Percent Auto 24.3 % (20-40); Mean Corpuscular HGB Conc 32.5 g/dl (31.0-35.0); Mean Corpuscular Hemoglobin 28.3 pg (27.0-33.0); Mean Corpuscular Volume 87.1 fL (80-98); Mean Platelet Volume 9.9 fL (9.4-12.3); Monocytes Absolute Auto 0.8 X10*3/uL (0.1-1.2); Monocytes Percent Auto 5.6 % (2-11); Neutrophils Absolute Auto 9.6 X10*3/uL (2.0-8.3); Neutrophils Percent Auto 68.8 % (45-73); Platelet Count 243 X10*3/uL (160-400); Red Cell Distribution Width 14.6 % (11.0-16.0); White Blood Count 13.9 X10*3/uL (4.8-10.8)
[2021-05-03 13:17] LABS: Alanine Aminotransferase 19 U/L (0-31); Alkaline Phosphatase 103 U/L (39-117); Anion Gap 11 (12-20); Aspartate Amino Transferase 14 U/L (5-31); Bilirubin Total 0.4 mg/dL (0.0-1.0); Blood Urea Nitrogen 20 mg/dL (9-16); Calcium 9.3 mg/dL (8.4-10.2); Carbon Dioxide 27 mmol/L (22-29); Chloride 108 mmol/L (96-108); Creatinine Clr Calc Pharmacy 99.2; Estimated Glomerular Filt Rate > 60; Glucose Random 92 mg/dL (60-115); Potassium 4.2 mmol/L (3.3-5.1); Sodium 142 mmol/L (135-145); Total Protein 6.7 g/dL (6.5-8.0)
[2021-05-03 13:18] LABS: Troponin-I High Sensitivity < 3.5 ng/L (<3.5-17.0)
[2021-05-03 14:14] VITALS: BP 99/54; PULSE 60; RESP 14; TEMP 36.7; O2SAT 97
== END 2021-05-03 14:55 | disposition home or self-care (01) ==
PROVIDERS: Emergency Provider Emergency Medicine; PCP Physician Assistant
DX: G43.909 Migraine, unspecified, not intractable, without status migrainosus (principal); R07.89 Other chest pain; Z79.899 Other long term (current) drug therapy
CPT/HCPCS: 36415; 70450; 71045; 80053; 84484; 85025; 93005; 96374; 96375; 99283; 99284; J2060

== ENCOUNTER 2021-08-21 21:08 | Emergency (ER) | payer OTHER, SELFPAY ==
[2021-08-21 21:30] VITALS: BP 128/84; PULSE 93; RESP 18; TEMP 37; O2SAT 99; BMI 36.3
[2021-08-22 01:32] VITALS: BP 145/95; PULSE 98; RESP 14; O2SAT 95
--- NOTE | 2021-08-22 03:13 | ED_ITS ---
HPI - Headache General Chief Complaint: Headache Stated Complaint: migraine Time Seen by Provider: 08/22/21 00:58 History of Present Illness HPI Narrative: Patient is a 46-year-old female presents today with having headaches. History of migraine headaches. The symptoms ongoing for few days. It is diffuse. It is worse with light. Associated with nausea. There is no focal weakness. Patient is from home. Has a long history of migraine in the past. It is throbbing. It radiates to neck is not associated with any fever. Related Data Home Medications Medication Instructions Recorded Confirmed albuterol sulfate 90 mcg/actuation 2 puff PO Q4H PRN 01/20/21 01/20/21 aerosol inhaler albuterol sulfate 90 mcg/actuation 2 puff PO Q4H PRN 01/20/21 01/20/21 aerosol inhaler (Ventolin HFA) atorvastatin 40 mg tablet 1 tab PO DAILY 01/20/21 01/20/21 capsicum oleoresin 0.025 % topical 2 - 4 g TOPICAL BID 01/20/21 01/20/21 cream (DermacinRx Penetral) cariprazine 1.5 mg capsule 1 cap PO DAILY 01/20/21 01/20/21 (Vraylar) cariprazine 3 mg capsule (Vraylar) 1 cap PO DAILY 01/20/21 01/20/21 clonazepam 0.5 mg tablet 0.5 - 1 tab PO BID PRN 01/20/21 01/20/21 fluticasone propionate 110 1 puff PO BID 01/20/21 01/20/21 mcg/actuation HFA aerosol inhaler (Flovent HFA) hydroxyzine pamoate 50 mg capsule 1 cap PO TID 01/20/21 01/20/21 lidocaine 5 % topical ointment 1 g TOPICAL BID PRN 01/20/21 01/20/21 loratadine 10 mg tablet 1 tab PO DAILY PRN 01/20/21 01/20/21 nicotine 7 mg/24 hr daily 1 patch TOPICAL DAILY 01/20/21 01/20/21 transdermal patch prazosin 2 mg capsule 1 cap PO BEDTIME 01/20/21 01/20/21 quetiapine 300 mg tablet 1 tab PO BEDTIME 01/20/21 01/20/21 quetiapine 50 mg tablet 1 tab PO BID PRN 01/20/21 01/20/21 tizanidine 6 mg capsule 1 cap PO TID 01/20/21 01/20/21 topiramate 100 mg tablet 100 mg PO TID PRN 01/20/21 01/20/21 venlafaxine 150 mg 150 cap PO DAILY 01/20/21 01/20/21 capsule,extended release 24 hr venlafaxine 37.5 mg 1 cap PO DAILY 01/20/21 01/20/21 capsule,extended release 24 hr Previous Rx's Medication Instructions Recorded ondansetron 4 mg disintegrating 4 mg PO Q8H PRN #20 tab 06/03/20 tablet acetaminophen 500 mg capsule 500 mg PO Q6H PRN #10 cap 03/18/21 butenafine 1 % topical cream 1 appl TOPICAL BID 7 Days #30 g 03/18/21 (Lotrimin Ultra) prochlorperazine maleate 10 mg 10 mg PO Q6H PRN #10 tab 05/03/21 tablet (Compazine) Allergies Allergy/AdvReac Type Severity Reaction Status Date / Time aspirin [ASPIRIN] Allergy Unknown ASTHMA Verified 07/27/20 16:58 gabapentin [From NEURONTIN] Allergy Unknown SI Verified 07/27/20 16:58 ibuprofen Allergy Unknown Unknown Verified 07/27/20 16:58 nortriptyline [NORTRIPTYLINE] Allergy Unknown HIVES Verified 07/27/20 16:58 NSAIDS (Non-Steroidal Allergy Unknown BLEEDING/ Verified 07/27/20 16:58 Anti-Inflamma ASTHMA [NSAIDS] EXACERBATION Sulfa (Sulfonamide Allergy Unknown DEPRESSION Verified 07/27/20 16:58 Antibiotics) [SULFA (SULFONAMIDE ANTIBIOTICS)] tramadol [TRAMADOL] Allergy Unknown WHEEZES Verified 07/27/20 16:58 enoxaparin AdvReac Severe STATES SHE Verified 07/27/20 16:58 HAS SEVERE BLEEDING heparin [HEPARIN] AdvReac Severe STATES SHE Verified 07/27/20 16:58 HAS SEVERE BLEEDING SEAFOOD Allergy Intermediate BREATHING Uncoded 07/27/20 16:58 BLOOD THINNERS Allergy Unknown UNABLE DUE Uncoded 07/27/20 16:58 TO STROKE Review of Systems Review of Systems: Positive headache Positive photophobia Positive nausea All system reviewed otherwise negative PMFSH Past Medical History Attestation statement: The following information was validated with the patient. Medical History Avascular necrosis of bone of left hip Carcinoid tumor Cervical cancer Chronic back pain Depression Hemorrhagic cerebrovascular accident (CVA) Migraines Seizures Surgical History H/O bilateral salpingo-oophorectomy History of appendectomy History of hysterectomy Social History Social History Alcohol intake: never Advance Directives: No Physical Exam Vital Signs: Vital Signs: Last Vital Signs Temp 98.6 F 08/21/21 21:30 Pulse 98 08/22/21 01:32 Resp 14 08/22/21 01:32 BP 145/95 H 08/22/21 01:32 Pulse Ox 95 08/22/21 01:32 BMI result Body Mass Index 36.3 Appearance: Alert. Oriented X3. No acute distress. Eyes: Pupils equal, round and reactive to light. ENT: Pharynx normal. Neck: Normal inspection. Neck supple. No lymph nodes noted. No crepitus CVS: Normal heart rate and rhythm. Pulses normal. Normal S1 and S2 Respiratory: No respiratory distress. Breath sounds normal. No Wheezing. No rales Abdomen: Soft and nontender. No rigidity. No distention. good BS x4 Skin: Skin warm and dry. Normal skin color. Normal skin turgor. Extremities: No lower extremity edema. Neurovascular intact to all extremities. No Lacerations. No Rash Neuro: Oriented X 3. No motor deficit. No sensory deficit. Moving all extermities. No slurred speech MDM - Headache MDM Narrative Medical decision making narrative: Patient's symptoms similar to previous bouts of migraine headache. Given Reglan, Benadryl, IV fluid. Symptoms moderately relief. Given a small dose of Dilaudid symptoms improved. Will discharge patient home. No evidence for meningitis. In stable condition. Differential Diagnosis Differential diagnosis: Likely migraine Medical Records Attestation: I reviewed the patient's medical records. Lab Data Attestation: I reviewed the patient's lab results. Result diagrams: 08/22/21 04:15 08/22/21 04:15 Labs: Lab Results 08/22/21 08/22/21 08/22/21 Range/Units 04:15 04:15 04:15 WBC 9.0 (4.8-10.8) X10*3/uL RBC 4.54 (4.20-5.50) X10*6/uL Hgb 13.0 (12.0-16.0) g/dl Hct 40.3 (37.0-47.0) % MCV 88.8 (80.0-98.0) fL MCH 28.6 (27.0-33.0) pg MCHC 32.3 (31.0-35.0) g/dl RDW 13.9 (11.0-16.0) % Plt Count 195 (160-400) X10*3/uL MPV 10.1 (9.4-12.3) fL Immature Gran % (Auto) 0.6 H (0.0-0.4) % Neut % (Auto) 62.0 (45-73) % Lymph % (Auto) 30.3 (20-40) % [place] % (Auto) 5.8 (2-11) % Eos % (Auto) 1.0 (0-4) % Baso % (Auto) 0.3 (0-2) % Lymph # (Auto) 2.7 (1.2-4.9) X10*3/uL [place] # (Auto) 0.5 (0.1-1.2) X10*3/uL Eos # (Auto) 0.1 (0.0-0.4) X10*3/uL Baso # (Auto) 0.0 (0.0-0.2) X10*3/uL Abs Immat Gran (auto) 0.05 H (0.00-0.03) X10*3/uL Absolute Neuts (auto) 5.6 (2.0-8.3) x10*3/uL Absolute Nucleated RBC 0.000 (0.0-0.012) X10*3/uL Nucleated RBC % (auto) 0.0 (0.0-0.2) /100WBC Sodium 140 (135-145) mmol/L Potassium 4.3 (3.3-5.1) mmol/L Chloride 107 (96-108) mmol/L Carbon Dioxide 26 (22-29) mmol/L Anion Gap 11 L (12-20) BUN 16 (9-16) mg/dL Creatinine 0.87 (0.5-1.4) mg/dL Estim Creat Clear Calc 96.4 Estimated GFR > 60 Random Glucose 99 (60-115) mg/dL Calcium 8.9 (8.4-10.2) mg/dL COVID-19 ([facility]) Negative (Negative) COVID-19 Clin Com See Note Discharge Plan Discharge Clinical Impression: Migraine Patient Disposition: Home, Self-Care Instructions: Migraine Headache (ED) Prescriptions: No Action atorvastatin 40 mg tablet 1 tab PO DAILY RF: 0 venlafaxine 37.5 mg capsule,extended release 24hr 1 cap PO DAILY RF: 0 quetiapine 300 mg tablet 1 tab PO BEDTIME RF: 0 clonazepam 0.5 mg tablet 0.5 - 1 tab PO BID PRN (Reason: panic attack) RF: 0 venlafaxine 150 mg capsule,extended release 24hr 150 cap PO DAILY RF: 0 hydroxyzine pamoate 50 mg capsule 1 cap PO TID RF: 0 albuterol sulfate [Ventolin HFA] 90 mcg/actuation HFA aerosol inhaler 2 puff PO Q4H PRN (Reason: wheezing) RF: 0 albuterol sulfate 90 mcg/actuation HFA aerosol inhaler 2 puff PO Q4H PRN (Reason: wheezing) RF: 0 topiramate 100 mg tablet 100 mg PO TID PRN (Reason: Anxiety) RF: 0 loratadine 10 mg tablet 1 tab PO DAILY PRN (Reason: allergies) RF: 0 prazosin 2 mg capsule 1 cap PO BEDTIME RF: 0 Flovent HFA 110 mcg/actuation HFA aerosol inhaler 1 puff PO BID RF: 0 nicotine 7 mg/24 hr patch 24 hour 1 patch topical DAILY RF: 0 tizanidine 6 mg capsule 1 cap PO TID RF: 0 quetiapine 50 mg tablet 1 tab PO BID PRN (Reason: Anxiety) RF: 0 lidocaine 5 % ointment 1 g topical BID PRN (Reason: Back Pain) RF: 0 Vraylar 1.5 mg capsule 1 cap PO DAILY RF: 0 Vraylar 3 mg capsule 1 cap PO DAILY RF: 0 DermacinRx Penetral 0.025 % cream 2 - 4 g topical BID RF: 0 ondansetron 4 mg tablet,disintegrating 4 mg PO Q8H PRN (Reason: nausea and vomiting) Qty: 20 RF: 0 acetaminophen 500 mg capsule 500 mg PO Q6H PRN (Reason: pain) Qty: 10 RF: 0 butenafine [Lotrimin Ultra] 1 % cream 1 appl topical BID 7 Days Qty: 30 RF: 0 prochlorperazine maleate [Compazine] 10 mg tablet 10 mg PO Q6H PRN (Reason: nausea and vomiting) Qty: 10 RF: 0 Referrals: Physician,Unknown J [Primary Care Provider] - 2 days
[2021-08-22] MEDS: diphenhydrAMINE HCL 50 MG/ML VIAL 25 MG IVPUSH (03:50)
[2021-08-22] MEDS: 0.9 % Sodium Chloride 1,000 ML 999 ML IV (03:50)
[2021-08-22] MEDS: Prochlorperazine Edisylate 10 MG/2 ML VIAL IVPUSH (03:51)
--- NOTE | 2021-08-22 03:55 | PC.NURSE ---
Iv placed, medicated per mar and warm blanket given.
[2021-08-22 04:21] LABS: MANUAL DIFF FLAG NO
[2021-08-22 04:22] LABS: Basophils Percent Auto 0.3 % (0-2); Eosinophils Absolute Auto 0.1 X10*3/uL (0.0-0.4); Hematocrit 40.3 % (37.0-47.0); Imm Gran Abs Auto 0.05 X10*3/uL (0.00-0.03); Imm Gran Pct Auto 0.6 % (0.0-0.4); Lymphocytes Absolute Auto 2.7 X10*3/uL (1.2-4.9); Lymphocytes Percent Auto 30.3 % (20-40); Mean Corpuscular HGB Conc 32.3 g/dl (31.0-35.0); Mean Corpuscular Hemoglobin 28.6 pg (27.0-33.0); Mean Corpuscular Volume 88.8 fL (80.0-98.0); Mean Platelet Volume 10.1 fL (9.4-12.3); Monocytes Absolute Auto 0.5 X10*3/uL (0.1-1.2); Monocytes Percent Auto 5.8 % (2-11); Neutrophils Absolute Auto 5.6 x10*3/uL (2.0-8.3); Platelet Count 195 X10*3/uL (160-400); Red Blood Count 4.54 X10*6/uL (4.20-5.50); Red Cell Distribution Width 13.9 % (11.0-16.0)
[2021-08-22 04:37] LABS: COVID-19 Test Negative (Negative); IDNOW Serial# 9DD0AD1C
[2021-08-22 04:42] LABS: Anion Gap 11 (12-20); Blood Urea Nitrogen 16 mg/dL (9-16); Calcium 8.9 mg/dL (8.4-10.2); Carbon Dioxide 26 mmol/L (22-29); Chloride 107 mmol/L (96-108); Creatinine Clr Calc Pharmacy 96.4; Estimated Glomerular Filt Rate > 60; Glucose Random 99 mg/dL (60-115); Potassium 4.3 mmol/L (3.3-5.1); Sodium 140 mmol/L (135-145)
[2021-08-22] MEDS: HYDROmorphone HCl 0.5 MG/0.5 ML SYRINGE IVPUSH (05:19)
--- NOTE | 2021-08-22 05:20 | PC.NURSE ---
pt still having a headache, per provider medicated per mar.
== END 2021-08-22 06:06 | disposition home or self-care (01) ==
PROVIDERS: Emergency Provider Emergency Medicine Emergency Medical Services
DX: G43.909 Migraine, unspecified, not intractable, without status migrainosus (principal); Z20.822 Contact with and (suspected) exposure to COVID-19
CPT/HCPCS: 36415; 80048; 85025; 87635; 96361; 96374; 96375; 99283; 99284; J1170; J1200

== ENCOUNTER 2021-08-23 08:12 | Emergency (ER) | payer OTHER, SELFPAY ==
--- NOTE | ~2021-08-23 | CT_ITS ---
EXAMINATION: CT HEAD WITHOUT CONTRAST CLINICAL INFORMATION: Migraine. COMPARISON: Previous head CT most recent April 2021 TECHNIQUE: Contiguous axial imaging was performed from the skull base to vertex without intravenous administration of contrast. This CT examination was performed using dose optimization techniques as appropriate, variously including the following: *Automated exposure control *Adjustment of mA and/or kV according to patient size (this includes techniques or standardized protocols for targeted exams where dose is matched to indication/reason for exam; i.e. extremities or head) *Use of iterative reconstruction technique DLP: 793 mGy-cm FINDINGS: There is no evidence of acute intracranial hemorrhage or territorial infarction. No abnormal mass effect or midline shift is seen. [place] to white matter differentiation is well preserved. No extra-axial fluid collections are identified. The ventricles are normal in size. There is no abnormal attenuation within the brain parenchyma. The osseous structures and soft tissues are normal. There is membranous soft tissue thickening in the sphenoid sinus. This is new from April 2021 exam. The mastoid air cells and visualized portions of the paranasal sinuses are otherwise clear. CT/CT head/brain wo con IMPRESSION: No acute intracranial pathology. Mild inflammatory changes in the sphenoid sinus new from April 2021 exam.
[2021-08-23 08:21] VITALS: BP 155/90; PULSE 91; RESP 18; TEMP 36.1; O2SAT 97; BMI 35.6
--- NOTE | 2021-08-23 09:16 | ED_ITS ---
HPI - Headache General Chief Complaint: Headache Stated Complaint: Migraine Time Seen by Provider: 08/23/21 09:16 Source: patient Mode of arrival: ambulatory Limitations: no limitations History of Present Illness HPI Narrative: This is a 46-year-old female past medical history significant for migraine headaches, CVA, carcinoid tumor of the appendix presenting to the emergency department with complaints a throbbing migraine headache she reports it feels like her typical migrane, expect its a little stronger than usual, this migrane started on saturday. Reports photophobia, sensitivity to smells, nausea, and vomiting. She typically gets about 2 migraine a month. Patient typically gets nerve blocks for her migraines however her next appointment is not until September. Patient's headache is diffuse and she cannot pinpoint 1 particular part of her head. She tells me it has been happening more frequently. She denies dizziness, vision changes, vomiting , abdominal pain, chest pain, shortness of breath MD elicited complaint: migraine Pertinent past history: migraines Onset (ago): day(s) (3) Onset description: gradually Location: generalized Severity: severe Quality & Timing: throbbing Exacerbating factors: light and noise Relieving factors: nothing Context: occurred at rest Associated symptoms: nausea Treatments prior to arrival: acetaminophen Related Data Home Medications Medication Instructions Recorded Confirmed albuterol sulfate 90 mcg/actuation 2 puff PO Q4H PRN 01/20/21 01/20/21 aerosol inhaler albuterol sulfate 90 mcg/actuation 2 puff PO Q4H PRN 01/20/21 01/20/21 aerosol inhaler (Ventolin HFA) atorvastatin 40 mg tablet 1 tab PO DAILY 01/20/21 01/20/21 capsicum oleoresin 0.025 % topical 2 - 4 g TOPICAL BID 01/20/21 01/20/21 cream (DermacinRx Penetral) cariprazine 1.5 mg capsule 1 cap PO DAILY 01/20/21 01/20/21 (Vraylar) cariprazine 3 mg capsule (Vraylar) 1 cap PO DAILY 01/20/21 01/20/21 clonazepam 0.5 mg tablet 0.5 - 1 tab PO BID PRN 01/20/21 01/20/21 fluticasone propionate 110 1 puff PO BID 01/20/21 01/20/21 mcg/actuation HFA aerosol inhaler (Flovent HFA) hydroxyzine pamoate 50 mg capsule 1 cap PO TID 01/20/21 01/20/21 lidocaine 5 % topical ointment 1 g TOPICAL BID PRN 01/20/21 01/20/21 loratadine 10 mg tablet 1 tab PO DAILY PRN 01/20/21 01/20/21 nicotine 7 mg/24 hr daily 1 patch TOPICAL DAILY 01/20/21 01/20/21 transdermal patch prazosin 2 mg capsule 1 cap PO BEDTIME 01/20/21 01/20/21 quetiapine 300 mg tablet 1 tab PO BEDTIME 01/20/21 01/20/21 quetiapine 50 mg tablet 1 tab PO BID PRN 01/20/21 01/20/21 tizanidine 6 mg capsule 1 cap PO TID 01/20/21 01/20/21 topiramate 100 mg tablet 100 mg PO TID PRN 01/20/21 01/20/21 venlafaxine 150 mg 150 cap PO DAILY 01/20/21 01/20/21 capsule,extended release 24 hr venlafaxine 37.5 mg 1 cap PO DAILY 01/20/21 01/20/21 capsule,extended release 24 hr Previous Rx's Medication Instructions Recorded ondansetron 4 mg disintegrating 4 mg PO Q8H PRN #20 tab 06/03/20 tablet acetaminophen 500 mg capsule 500 mg PO Q6H PRN #10 cap 03/18/21 butenafine 1 % topical cream 1 appl TOPICAL BID 7 Days #30 g 03/18/21 (Lotrimin Ultra) prochlorperazine maleate 10 mg 10 mg PO Q6H PRN #10 tab 05/03/21 tablet (Compazine) acetaminophen 500 mg tablet 500 mg PO Q6H PRN #30 tab 08/23/21 (Tylenol Extra Strength) ondansetron 4 mg disintegrating 4 mg PO ONCE PRN #10 tab 08/23/21 tablet Allergies Allergy/AdvReac Type Severity Reaction Status Date / Time aspirin [ASPIRIN] Allergy Unknown ASTHMA Verified 07/27/20 16:58 gabapentin [From NEURONTIN] Allergy Unknown SI Verified 07/27/20 16:58 ibuprofen Allergy Unknown Unknown Verified 07/27/20 16:58 nortriptyline [NORTRIPTYLINE] Allergy Unknown HIVES Verified 07/27/20 16:58 NSAIDS (Non-Steroidal Allergy Unknown BLEEDING/ Verified 07/27/20 16:58 Anti-Inflamma ASTHMA [NSAIDS] EXACERBATION Sulfa (Sulfonamide Allergy Unknown DEPRESSION Verified 07/27/20 16:58 Antibiotics) [SULFA (SULFONAMIDE ANTIBIOTICS)] tramadol [TRAMADOL] Allergy Unknown WHEEZES Verified 07/27/20 16:58 enoxaparin AdvReac Severe STATES SHE Verified 07/27/20 16:58 HAS SEVERE BLEEDING heparin [HEPARIN] AdvReac Severe STATES SHE Verified 07/27/20 16:58 HAS SEVERE BLEEDING SEAFOOD Allergy Intermediate BREATHING Uncoded 07/27/20 16:58 BLOOD THINNERS Allergy Unknown UNABLE DUE Uncoded 07/27/20 16:58 TO STROKE Review of Systems Review of Systems: Constitutional : No Fever, No Chills, No Fatigue ENT/Mouth : No sore throat, No Rhinorrhea Eyes: No Eye Pain, No Swelling, No Redness, No vision changes Cardiovascular : No Chest Pain, No SOB, No Dyspnea on Exertion Respiratory : No Cough, No Sputum Gastrointestinal : + Nausea, No Vomiting, No Diarrhea, No abdominal Pain Genitourinary : No Dysuria, No Urinary Frequency, No Hematuria, Musculoskeletal : No joint pain, No Myalgias, No Joint Swelling Skin : No Skin Lesions, No rash Neuro : No Weakness, No Numbness, No Dizziness, + Headache Psych : No Anxiety/Panic, No Depression All other systems reviewed and are negative Yes all other systems are reviewed and are negative PMFSH Past Medical History Attestation statement: The following information was validated with the patient. Source: old records reviewed and nursing notes reviewed Medical History Avascular necrosis of bone of left hip Carcinoid tumor Cervical cancer Chronic back pain Depression Hemorrhagic cerebrovascular accident (CVA) Migraines Seizures Surgical History H/O bilateral salpingo-oophorectomy History of appendectomy History of hysterectomy Social History Social History Alcohol intake: unknown Patient Tobacco Use Status: Tobacco use Unknown Use of substances other than those prescribed or required for medical reasons: Unknown Advance Directives: No Advance Directives Information Provided: No Patient : No Physical Exam Vital Signs: Vital Signs: Last Vital Signs Temp 97 F 08/23/21 08:21 Pulse 64 08/23/21 11:32 Resp 16 08/23/21 11:32 BP 133/87 08/23/21 11:32 Pulse Ox 98 08/23/21 11:32 BMI result Body Mass Index 35.6 VSS Appearance: Alert.? Oriented X3.? No acute distress.? Head: Normocephalic, atraumatic, no step-offs or deformities Eyes: Pupils equal, round and reactive to light.? ENT: Pharynx normal.? Neck: Normal inspection.? Neck supple.? CVS: Normal heart rate and rhythm.? Pulses normal.? Respiratory: No respiratory distress.? Breath sounds normal.? Abdomen: Soft and nontender.? Skin: Skin warm and dry.? Normal skin color.? Normal skin turgor.? Extremities: No lower extremity edema.? No calf ttp. 5/5 strength to bilateral upper and lower extremities Back: No midline tenderness, no C-spine tenderness, full range of motion, no CVA tenderness bilaterally Neuro: Oriented X 3.? No motor deficit.? No sensory deficit. normal hand field placement director. Normal gait. Normal [id number]. Normal [id number]. Course Reevaluation(s) Reevaluation #1: Patient tells me that her headache is now an 8/10 and it is still severe in nature. I will give another 0.5 of Dilaudid. I did some more chart review noted that patient has required multiple doses of morphine, and Dilaudid in the past. I feel as though this is a chronic issue that requires her to follow-up with a specialist. I will give her 1 more dose of Dilaudid, and then I will discharge patient home. Time: 11:18 Reevaluation #2: Patient's laboratory studies with no acute findings, they appear to be at baseline. At this time patient's CT scan does show intracranial hemorrhages or territorial infarction however, it does show inflammatory changes to the sp henoid sinus. I have advised patient to follow-up with her PCP, I have also advised her to follow-up with Neurology. Patient reports slight improvement. Patient is now lying down with her eyes open, eating and drinking. Feeling better. She is requesting extra-strength Tylenol for home. This time I feel comfortable with discharge home this is likely a migraine headache. Unlikely ICH, stroke. Time: 13:19 MDM - Headache MDM Narrative Medical decision making narrative: [age] yo f pmhx migrane, cva, carcenoiud tumor of apendix presents to ED w/ complaints of throbbing diffuse migrane since saturday. PE benign Plan- CT head/brain, basic labs. Will give benadryl, reeglan and fluids. Upon chart review it is noted that patient has been here frequently for migraine headaches. She typically requires Narcotics. If Benadryl, Reglan and fluids fail will give 0.5 of Dilaudid. Since patient tells me that this seems to be stronger than her typical migraine I did will scan her head as well. Will rule out intra cranial pathologies and ICH. Differential Diagnosis Differential diagnosis: Likely migraine Medical Records Attestation: I reviewed the patient's medical records. Lab Data Attestation: I reviewed the patient's lab results. Result diagrams: 08/23/21 11:01 08/23/21 11:01 Labs: Lab Results 08/23/21 08/23/21 Range/Units 11:01 11:01 WBC 8.4 (4.8-10.8) X10*3/uL RBC 4.60 (4.20-5.50) X10*6/uL Hgb 13.2 (12.0-16.0) g/dl Hct 41.1 (37.0-47.0) % MCV 89.3 (80.0-98.0) fL MCH 28.7 (27.0-33.0) pg MCHC 32.1 (31.0-35.0) g/dl RDW 13.6 (11.0-16.0) % Plt Count 172 (160-400) X10*3/uL MPV 10.0 (9.4-12.3) fL Immature Gran % (Auto) 0.5 H (0.0-0.4) % Neut % (Auto) 58.8 (45-73) % Lymph % (Auto) 33.0 (20-40) % Sequoyah % (Auto) 6.1 (2-11) % Eos % (Auto) 1.4 (0-4) % Baso % (Auto) 0.2 (0-2) % Lymph # (Auto) 2.8 (1.2-4.9) X10*3/uL Sequoyah # (Auto) 0.5 (0.1-1.2) X10*3/uL Eos # (Auto) 0.1 (0.0-0.4) X10*3/uL Baso # (Auto) 0.0 (0.0-0.2) X10*3/uL Abs Immat Gran (auto) 0.04 H (0.00-0.03) X10*3/uL Absolute Neuts (auto) 4.9 (2.0-8.3) x10*3/uL Absolute Nucleated RBC 0.000 (0.0-0.012) X10*3/uL Nucleated RBC % (auto) 0.0 (0.0-0.2) /100WBC Sodium 143 (135-145) mmol/L Potassium 4.0 (3.3-5.1) mmol/L Chloride 110 H (96-108) mmol/L Carbon Dioxide 26 (22-29) mmol/L Anion Gap 11 L (12-20) BUN 18 H (9-16) mg/dL Creatinine 0.90 (0.5-1.4) mg/dL Estim Creat Clear Calc 92.1 Estimated GFR > 60 Random Glucose 94 (60-115) mg/dL Calcium 9.1 (8.4-10.2) mg/dL Total Bilirubin 0.3 (0.0-1.0) mg/dL AST 11 (5-31) U/L ALT 13 (0-31) U/L Alkaline Phosphatase 88 (39-117) U/L Total Protein 6.2 L (6.5-8.0) g/dL Albumin 3.7 (3.5-5.0) g/dL Critical Care Time Critical Care Time Critical Care Time: No Discharge Plan Discharge Clinical Impression: Migraine Patient Disposition: Home, Self-Care Instructions: Migraine Headache (ED) Additional Instructions: Take your medications as prescribed. If you were prescribed antibiotics today, it is important that you take your medication to their entirety, do not skip any doses, do not finish them early. Take ibuprofen every 6 hours, Tylenol every 4 as needed for pain/ headache. Follow-up with your primary care provider this week. I also advised to follow- up with a neurologist. Return to the emergency department with new or worsening symptoms. In case of emergency call 911 Prescriptions: New ondansetron 4 mg tablet,disintegrating 4 mg PO ONCE PRN (Reason: nausea and vomiting) Qty: 10 RF: 0 acetaminophen [Tylenol Extra Strength] 500 mg tablet 500 mg PO Q6H PRN (Reason: fever or pain) Qty: 30 RF: 0 No Action atorvastatin 40 mg tablet 1 tab PO DAILY RF: 0 venlafaxine 37.5 mg capsule,extended release 24hr 1 cap PO DAILY RF: 0 quetiapine 300 mg tablet 1 tab PO BEDTIME RF: 0 clonazepam 0.5 mg tablet 0.5 - 1 tab PO BID PRN (Reason: panic attack) RF: 0 venlafaxine 150 mg capsule,extended release 24hr 150 cap PO DAILY RF: 0 hydroxyzine pamoate 50 mg capsule 1 cap PO TID RF: 0 albuterol sulfate [Ventolin HFA] 90 mcg/actuation HFA aerosol inhaler 2 puff PO Q4H PRN (Reason: wheezing) RF: 0 albuterol sulfate 90 mcg/actuation HFA aerosol inhaler 2 puff PO Q4H PRN (Reason: wheezing) RF: 0 topiramate 100 mg tablet 100 mg PO TID PRN (Reason: Anxiety) RF: 0 loratadine 10 mg tablet 1 tab PO DAILY PRN (Reason: allergies) RF: 0 prazosin 2 mg capsule 1 cap PO BEDTIME RF: 0 Flovent HFA 110 mcg/actuation HFA aerosol inhaler 1 puff PO BID RF: 0 nicotine 7 mg/24 hr patch 24 hour 1 patch topical DAILY RF: 0 tizanidine 6 mg capsule 1 cap PO TID RF: 0 quetiapine 50 mg tablet 1 tab PO BID PRN (Reason: Anxiety) RF: 0 lidocaine 5 % ointment 1 g topical BID PRN (Reason: Back Pain) RF: 0 Vraylar 1.5 mg capsule 1 cap PO DAILY RF: 0 Vraylar 3 mg capsule 1 cap PO DAILY RF: 0 DermacinRx Penetral 0.025 % cream 2 - 4 g topical BID RF: 0 ondansetron 4 mg tablet,disintegrating 4 mg PO Q8H PRN (Reason: nausea and vomiting) Qty: 20 RF: 0 acetaminophen 500 mg capsule 500 mg PO Q6H PRN (Reason: pain) Qty: 10 RF: 0 butenafine [Lotrimin Ultra] 1 % cream 1 appl topical BID 7 Days Qty: 30 RF: 0 prochlorperazine maleate [Compazine] 10 mg tablet 10 mg PO Q6H PRN (Reason: nausea and vomiting) Qty: 10 RF: 0 Referrals: Dave Amaro PA [Primary Care Provider] - 2 days Stand Alone Forms: Work/School Release
[2021-08-23] MEDS: Metoclopramide HCl 10 MG/2 ML VIAL IVPUSH (09:54)
[2021-08-23] MEDS: diphenhydrAMINE HCL 50 MG/ML VIAL IVPUSH (09:54)
[2021-08-23] MEDS: 0.9 % Sodium Chloride 1,000 ML 999 ML IV ×2 (09:55→12:53)
[2021-08-23] MEDS: HYDROmorphone HCl 0.5 MG/0.5 ML SYRINGE IVPUSH ×2 (10:41→12:52)
[2021-08-23 11:09] LABS: MANUAL DIFF FLAG NO
[2021-08-23 11:11] LABS: Basophils Percent Auto 0.2 % (0-2); Eosinophils Absolute Auto 0.1 X10*3/uL (0.0-0.4); Eosinophils Percent Auto 1.4 % (0-4); Hematocrit 41.1 % (37.0-47.0); Hemoglobin 13.2 g/dl (12.0-16.0); Imm Gran Abs Auto 0.04 X10*3/uL (0.00-0.03); Imm Gran Pct Auto 0.5 % (0.0-0.4); Lymphocytes Absolute Auto 2.8 X10*3/uL (1.2-4.9); Mean Corpuscular HGB Conc 32.1 g/dl (31.0-35.0); Mean Corpuscular Hemoglobin 28.7 pg (27.0-33.0); Mean Corpuscular Volume 89.3 fL (80.0-98.0); Monocytes Absolute Auto 0.5 X10*3/uL (0.1-1.2); Monocytes Percent Auto 6.1 % (2-11); Neutrophils Absolute Auto 4.9 x10*3/uL (2.0-8.3); Neutrophils Percent Auto 58.8 % (45-73); Platelet Count 172 X10*3/uL (160-400); Red Cell Distribution Width 13.6 % (11.0-16.0); White Blood Count 8.4 X10*3/uL (4.8-10.8)
[2021-08-23 11:31] LABS: Alanine Aminotransferase 13 U/L (0-31); Albumin Level 3.7 g/dL (3.5-5.0); Alkaline Phosphatase 88 U/L (39-117); Anion Gap 11 (12-20); Aspartate Amino Transferase 11 U/L (5-31); Bilirubin Total 0.3 mg/dL (0.0-1.0); Blood Urea Nitrogen 18 mg/dL (9-16); Calcium 9.1 mg/dL (8.4-10.2); Carbon Dioxide 26 mmol/L (22-29); Chloride 110 mmol/L (96-108); Creatinine Clr Calc Pharmacy 92.1; Estimated Glomerular Filt Rate > 60; Glucose Random 94 mg/dL (60-115); Sodium 143 mmol/L (135-145); Total Protein 6.2 g/dL (6.5-8.0)
[2021-08-23 11:32] VITALS: BP 133/87; PULSE 64; RESP 16; O2SAT 98
== END 2021-08-23 13:28 | disposition home or self-care (01) ==
PROVIDERS: Physician Assistant; Emergency Provider Emergency Medicine; PCP Physician Assistant
DX: G43.909 Migraine, unspecified, not intractable, without status migrainosus (principal); R11.0 Nausea; Z79.899 Other long term (current) drug therapy
CPT/HCPCS: 36415; 70450; 80053; 85025; 96361; 96374; 96375; 96376; 99284; J1170; J1200; J2765

== ENCOUNTER 2021-08-23 23:11 | Emergency (ER) | payer OTHER, SELFPAY ==
[2021-08-23 23:28] VITALS: BP 132/84; PULSE 85; RESP 16; TEMP 36.9; O2SAT 97; BMI 37.1
--- NOTE | 2021-08-24 01:57 | ECG_ITS ---
Test Reason : QTC Blood Pressure : / mmHG Vent. Rate : 074 BPM Atrial Rate : 074 BPM P-R Int : 202 ms QRS Dur : 082 ms QT Int : 398 ms P-R-T Axes : 042 035 043 degrees QTc Int : 441 ms Normal sinus rhythm Normal ECG When compared with ECG of 03-MAY-2021 11:05, No significant change was found Referred By: Monica Easley Electronically Signed By:Tonny Magallon
[2021-08-24 01:59] VITALS: BP 122/72; PULSE 77; RESP 18; TEMP 36.8; O2SAT 96
--- NOTE | 2021-08-24 02:51 | ED.HA ---
HPI - Headache General Chief Complaint: Headache Stated Complaint: migraine, painful vomiting, dehydrated ? Time Seen by Provider: 08/24/21 01:42 Source: patient Mode of arrival: ambulatory History of Present Illness HPI Narrative: 46-year-old female with history of migraines presents for her 3rd visit with complaints of migraine this is associated with photophobia as well as mild nausea denies vomiting. Patient states she is been completely COVID-19 vaccinated. Patient says that she typically gets injections for her migraines but she was unable to get thumb this time due to needing an injection for her back. Patient states that she is not been to a neurologist in many years. Otherwise, she denies any speech changes or extremity numbness/tingling/weakness. Related Data Home Medications Medication Instructions Recorded Confirmed albuterol sulfate 90 mcg/actuation 2 puff PO Q4H PRN 01/20/21 01/20/21 aerosol inhaler albuterol sulfate 90 mcg/actuation 2 puff PO Q4H PRN 01/20/21 01/20/21 aerosol inhaler (Ventolin HFA) atorvastatin 40 mg tablet 1 tab PO DAILY 01/20/21 01/20/21 capsicum oleoresin 0.025 % topical 2 - 4 g TOPICAL BID 01/20/21 01/20/21 cream (DermacinRx Penetral) cariprazine 1.5 mg capsule 1 cap PO DAILY 01/20/21 01/20/21 (Vraylar) cariprazine 3 mg capsule (Vraylar) 1 cap PO DAILY 01/20/21 01/20/21 clonazepam 0.5 mg tablet 0.5 - 1 tab PO BID PRN 01/20/21 01/20/21 fluticasone propionate 110 1 puff PO BID 01/20/21 01/20/21 mcg/actuation HFA aerosol inhaler (Flovent HFA) hydroxyzine pamoate 50 mg capsule 1 cap PO TID 01/20/21 01/20/21 lidocaine 5 % topical ointment 1 g TOPICAL BID PRN 01/20/21 01/20/21 loratadine 10 mg tablet 1 tab PO DAILY PRN 01/20/21 01/20/21 nicotine 7 mg/24 hr daily 1 patch TOPICAL DAILY 01/20/21 01/20/21 transdermal patch prazosin 2 mg capsule 1 cap PO BEDTIME 01/20/21 01/20/21 quetiapine 300 mg tablet 1 tab PO BEDTIME 01/20/21 01/20/21 quetiapine 50 mg tablet 1 tab PO BID PRN 01/20/21 01/20/21 tizanidine 6 mg capsule 1 cap PO TID 01/20/21 01/20/21 topiramate 100 mg tablet 100 mg PO TID PRN 01/20/21 01/20/21 venlafaxine 150 mg 150 cap PO DAILY 01/20/21 01/20/21 capsule,extended release 24 hr venlafaxine 37.5 mg 1 cap PO DAILY 01/20/21 01/20/21 capsule,extended release 24 hr Previous Rx's Medication Instructions Recorded ondansetron 4 mg disintegrating 4 mg PO Q8H PRN #20 tab 06/03/20 tablet acetaminophen 500 mg capsule 500 mg PO Q6H PRN #10 cap 03/18/21 butenafine 1 % topical cream 1 appl TOPICAL BID 7 Days #30 g 03/18/21 (Lotrimin Ultra) prochlorperazine maleate 10 mg 10 mg PO Q6H PRN #10 tab 05/03/21 tablet (Compazine) acetaminophen 500 mg tablet 500 mg PO Q6H PRN #30 tab 08/23/21 (Tylenol Extra Strength) ondansetron 4 mg disintegrating 4 mg PO ONCE PRN #10 tab 08/23/21 tablet Allergies Allergy/AdvReac Type Severity Reaction Status Date / Time aspirin [ASPIRIN] Allergy Unknown ASTHMA Verified 08/23/21 23:31 gabapentin [From NEURONTIN] Allergy Unknown SI Verified 08/23/21 23:31 ibuprofen Allergy Unknown Unknown Verified 08/23/21 23:31 nortriptyline [NORTRIPTYLINE] Allergy Unknown HIVES Verified 08/23/21 23:31 NSAIDS (Non-Steroidal Allergy Unknown BLEEDING/ Verified 08/23/21 23:31 Anti-Inflamma ASTHMA [NSAIDS] EXACERBATION Sulfa (Sulfonamide Allergy Unknown DEPRESSION Verified 08/23/21 23:31 Antibiotics) [SULFA (SULFONAMIDE ANTIBIOTICS)] tramadol [TRAMADOL] Allergy Unknown WHEEZES Verified 08/23/21 23:31 enoxaparin AdvReac Severe STATES SHE Verified 08/23/21 23:31 HAS SEVERE BLEEDING heparin [HEPARIN] AdvReac Severe STATES SHE Verified 08/23/21 23:31 HAS SEVERE BLEEDING SEAFOOD Allergy Intermediate BREATHING Uncoded 08/23/21 23:31 BLOOD THINNERS Allergy Unknown UNABLE DUE Uncoded 08/23/21 23:31 TO STROKE Review of Systems Review of Systems: Pertinent positives and negatives as stated in HPI 10 point review of systems is otherwise negative. PMFSH Past Medical History Source: nursing notes reviewed Medical History Avascular necrosis of bone of left hip Carcinoid tumor Cervical cancer Chronic back pain Depression Hemorrhagic cerebrovascular accident (CVA) Migraines Seizures Surgical History H/O bilateral salpingo-oophorectomy History of appendectomy History of hysterectomy Social History Social History Alcohol intake: unknown Patient Tobacco Use Status: Tobacco use Unknown Advance Directives: No Patient : No Physical Exam Vital Signs: Vital Signs: Last Vital Signs Temp 98.2 F 08/24/21 01:59 Pulse 68 08/24/21 03:20 Resp 18 08/24/21 04:33 BP 119/70 08/24/21 03:20 Pulse Ox 98 08/24/21 03:20 BMI result Body Mass Index 37.1 VITAL SIGNS: Reviewed. GENERAL: Well developed, well nourished, in no acute distress. HEAD: Normocephalic/atraumatic EYES: PERRLA, EOMI OROPHARYNX: no oral lesions noted, posterior pharynx clear LUNGS: Normal breath sounds. No adventitious sounds or accessory muscle use. SpO2<96> CARDIOVASCULAR: Regular rate and rhythm without noted murmurs ABDOMEN: Soft, non-tender, non-distended with bowel sounds. NEUROLOGIC: Alert and oriented x 4. Strength and sensation to light touch were grossly intact x 4, no facial asymmetry, no pronator drift, cranial nerves 2-12 are grossly intact. Course Course Course Narrative: 46-year-old female with history and clinical presentation consistent with chronic migraine and patient has not followed up with her primary care provider. Patient will receive an antiemetic here and will try abortive sumatriptan with instructions for the patient to follow-up with her primary care provider for further management. Patient is clinically nonfocal and therefore low clinical suspicion for CVA/TIA. Review of all investigations from visit at 11:00 a.m. in the morning on 08/23 were reviewed and noted to be within normal limits. Patient received antinausea medication as well as 6 mg of sumatriptan and on re-evaluation reports that she is feeling better. She was discharged home in stable condition with instructions follow-up with her primary care provider. MDM - Headache ECG Data Attestation: I personally reviewed and interpreted this ECG as follows: Prior ECG tracings: available for review (05/03/2021 no acute changes on comparison) Interpretation: NSR, HR-74, no STEMI, VT/QRS/QTC are within normal limits. Discharge Plan Discharge Clinical Impression: Migraine Patient Disposition: Home, Self-Care Instructions: Migraine Headache (ED) Additional Instructions: Follow-up with your primary care provider in the morning for continued management of your chronic migraines. Return to the ER for worsening symptoms. Prescriptions: No Action atorvastatin 40 mg tablet 1 tab PO DAILY RF: 0 venlafaxine 37.5 mg capsule,extended release 24hr 1 cap PO DAILY RF: 0 quetiapine 300 mg tablet 1 tab PO BEDTIME RF: 0 clonazepam 0.5 mg tablet 0.5 - 1 tab PO BID PRN (Reason: panic attack) RF: 0 venlafaxine 150 mg capsule,extended release 24hr 150 cap PO DAILY RF: 0 hydroxyzine pamoate 50 mg capsule 1 cap PO TID RF: 0 albuterol sulfate [Ventolin HFA] 90 mcg/actuation HFA aerosol inhaler 2 puff PO Q4H PRN (Reason: wheezing) RF: 0 albuterol sulfate 90 mcg/actuation HFA aerosol inhaler 2 puff PO Q4H PRN (Reason: wheezing) RF: 0 topiramate 100 mg tablet 100 mg PO TID PRN (Reason: Anxiety) RF: 0 loratadine 10 mg tablet 1 tab PO DAILY PRN (Reason: allergies) RF: 0 prazosin 2 mg capsule 1 cap PO BEDTIME RF: 0 Flovent HFA 110 mcg/actuation HFA aerosol inhaler 1 puff PO BID RF: 0 nicotine 7 mg/24 hr patch 24 hour 1 patch topical DAILY RF: 0 tizanidine 6 mg capsule 1 cap PO TID RF: 0 quetiapine 50 mg tablet 1 tab PO BID PRN (Reason: Anxiety) RF: 0 lidocaine 5 % ointment 1 g topical BID PRN (Reason: Back Pain) RF: 0 Vraylar 1.5 mg capsule 1 cap PO DAILY RF: 0 Vraylar 3 mg capsule 1 cap PO DAILY RF: 0 DermacinRx Penetral 0.025 % cream 2 - 4 g topical BID RF: 0 ondansetron 4 mg tablet,disintegrating 4 mg PO Q8H PRN (Reason: nausea and vomiting) Qty: 20 RF: 0 acetaminophen 500 mg capsule 500 mg PO Q6H PRN (Reason: pain) Qty: 10 RF: 0 butenafine [Lotrimin Ultra] 1 % cream 1 appl topical BID 7 Days Qty: 30 RF: 0 prochlorperazine maleate [Compazine] 10 mg tablet 10 mg PO Q6H PRN (Reason: nausea and vomiting) Qty: 10 RF: 0 ondansetron 4 mg tablet,disintegrating 4 mg PO ONCE PRN (Reason: nausea and vomiting) Qty: 10 RF: 0 acetaminophen [Tylenol Extra Strength] 500 mg tablet 500 mg PO Q6H PRN (Reason: fever or pain) Qty: 30 RF: 0
[2021-08-24] MEDS: Ondansetron ODT 4 MG TAB.RAPDIS TRANSLINGU (03:01)
[2021-08-24 03:20] VITALS: BP 119/70; PULSE 68; RESP 18; O2SAT 98
[2021-08-24] MEDS: SUMAtriptan succinate 6 MG/0.5 ML VIAL SUBCUT (04:16)
[2021-08-24 04:33] VITALS: RESP 18
== END 2021-08-24 05:36 | disposition home or self-care (01) ==
PROVIDERS: Emergency Provider Student in an Organized Health Care Education/Training Program
DX: G43.909 Migraine, unspecified, not intractable, without status migrainosus (principal); Z86.73 Personal history of transient ischemic attack (TIA), and cerebral infarction without residual deficits; Z85.41 Personal history of malignant neoplasm of cervix uteri; Z90.722 Acquired absence of ovaries, bilateral; Z90.710 Acquired absence of both cervix and uterus
CPT/HCPCS: 93005; 96372; 99284; J3030

== ENCOUNTER 2021-09-29 22:51 | Emergency (ER) | payer OTHER, SELFPAY ==
--- NOTE | ~2021-09-29 | XR_ITS ---
EXAMINATION: XR ANKLE, RIGHT CLINICAL INFORMATION: Pain and swelling COMPARISON: None TECHNIQUE: AP, lateral, and mortise views of the right ankle. FINDINGS: No fracture or dislocation. The ankle mortise is congruent. No ankle joint effusion. Moderate hypertrophic spurring of the plantar aponeurosis and Achilles insertion to the calcaneus. The soft tissues are unremarkable. XR/XR ankle RT min 3V IMPRESSION: No fracture or malalignment. Heel spurs.
--- NOTE | ~2021-09-29 | XR_ITS ---
EXAMINATION: XR FOOT, RIGHT CLINICAL INFORMATION: Pain. COMPARISON: None TECHNIQUE: 3 views of the right foot. FINDINGS: Oblique fracture through the neck of the third metatarsal. The fracture is slightly displaced. There is no dislocation. Small plantar calcaneal spur. XR/XR foot RT min 3V IMPRESSION: Fracture through the neck of the third metatarsal.
[2021-09-29 23:02] VITALS: BP 138/87; PULSE 100; RESP 16; TEMP 36.6; O2SAT 97; BMI 35.3
--- NOTE | 2021-09-29 23:25 | ED_ITS ---
HPI - Extremity Injury (Lower) General Chief Complaint: Extremity Injury, Lower Stated Complaint: right ankle broken? Source: patient Mode of arrival: wheelchair Limitations: no limitations History of Present Illness HPI Narrative: 46-year-old female presents for right foot pain after tripping and falling over roller skates. She is unable to bear weight, and states the pain is severe. MD complaint: ankle injury and foot injury Onset (ago): hour(s) (Within the hour of arrival) Type of Injury: unknown Place: home Severity: moderate Severity scale (1-10): 6 Relieving factors: nothing Exacerbating factors: weight bearing, movement and palpation Context: fall Associated symptoms: snap/pop sensation, swelling and unable to bear weight Other symptoms: none Treatments prior to arrival: cold therapy Related Data Home Medications Medication Instructions Recorded Confirmed albuterol sulfate 90 mcg/actuation 2 puff PO Q4H PRN 01/20/21 01/20/21 aerosol inhaler albuterol sulfate 90 mcg/actuation 2 puff PO Q4H PRN 01/20/21 01/20/21 aerosol inhaler (Ventolin HFA) atorvastatin 40 mg tablet 1 tab PO DAILY 01/20/21 01/20/21 capsicum oleoresin 0.025 % topical 2 - 4 g TOPICAL BID 01/20/21 01/20/21 cream (DermacinRx Penetral) cariprazine 1.5 mg capsule 1 cap PO DAILY 01/20/21 01/20/21 (Vraylar) cariprazine 3 mg capsule (Vraylar) 1 cap PO DAILY 01/20/21 01/20/21 clonazepam 0.5 mg tablet 0.5 - 1 tab PO BID PRN 01/20/21 01/20/21 fluticasone propionate 110 1 puff PO BID 01/20/21 01/20/21 mcg/actuation HFA aerosol inhaler (Flovent HFA) hydroxyzine pamoate 50 mg capsule 1 cap PO TID 01/20/21 01/20/21 lidocaine 5 % topical ointment 1 g TOPICAL BID PRN 01/20/21 01/20/21 loratadine 10 mg tablet 1 tab PO DAILY PRN 01/20/21 01/20/21 nicotine 7 mg/24 hr daily 1 patch TOPICAL DAILY 01/20/21 01/20/21 transdermal patch prazosin 2 mg capsule 1 cap PO BEDTIME 01/20/21 01/20/21 quetiapine 300 mg tablet 1 tab PO BEDTIME 01/20/21 01/20/21 quetiapine 50 mg tablet 1 tab PO BID PRN 01/20/21 01/20/21 tizanidine 6 mg capsule 1 cap PO TID 01/20/21 01/20/21 topiramate 100 mg tablet 100 mg PO TID PRN 01/20/21 01/20/21 venlafaxine 150 mg 150 cap PO DAILY 01/20/21 01/20/21 capsule,extended release 24 hr venlafaxine 37.5 mg 1 cap PO DAILY 01/20/21 01/20/21 capsule,extended release 24 hr Previous Rx's Medication Instructions Recorded ondansetron 4 mg disintegrating 4 mg PO Q8H PRN #20 tab 06/03/20 tablet acetaminophen 500 mg capsule 500 mg PO Q6H PRN #10 cap 03/18/21 butenafine 1 % topical cream 1 appl TOPICAL BID 7 Days #30 g 03/18/21 (Lotrimin Ultra) prochlorperazine maleate 10 mg 10 mg PO Q6H PRN #10 tab 05/03/21 tablet (Compazine) acetaminophen 500 mg tablet 500 mg PO Q6H PRN #30 tab 08/23/21 (Tylenol Extra Strength) ondansetron 4 mg disintegrating 4 mg PO ONCE PRN #10 tab 08/23/21 tablet oxycodone 5 mg tablet 5 mg PO TID PRN #14 tab 09/30/21 Allergies Allergy/AdvReac Type Severity Reaction Status Date / Time aspirin [ASPIRIN] Allergy Unknown ASTHMA Verified 09/29/21 23:02 gabapentin [From NEURONTIN] Allergy Unknown SI Verified 09/29/21 23:02 ibuprofen Allergy Unknown Unknown Verified 09/29/21 23:02 nortriptyline [NORTRIPTYLINE] Allergy Unknown HIVES Verified 09/29/21 23:02 NSAIDS (Non-Steroidal Allergy Unknown BLEEDING/ Verified 09/29/21 23:02 Anti-Inflamma ASTHMA [NSAIDS] EXACERBATION Sulfa (Sulfonamide Allergy Unknown DEPRESSION Verified 09/29/21 23:02 Antibiotics) [SULFA (SULFONAMIDE ANTIBIOTICS)] tramadol [TRAMADOL] Allergy Unknown WHEEZES Verified 09/29/21 23:02 enoxaparin AdvReac Severe STATES SHE Verified 09/29/21 23:02 HAS SEVERE BLEEDING heparin [HEPARIN] AdvReac Severe STATES SHE Verified 09/29/21 23:02 HAS SEVERE BLEEDING SEAFOOD Allergy Intermediate BREATHING Uncoded 09/29/21 23:02 BLOOD THINNERS Allergy Unknown UNABLE DUE Uncoded 09/29/21 23:02 TO STROKE Review of Systems Review of Systems: Constitutional: No Fever, No Chills ENT/Mouth: No Ear Pain, No Hoarseness, No sore throat Eyes: No Eye Pain, No Swelling, No Redness, No Foreign Body Cardiovascular: No Chest Pain, No SOB Respiratory: No Cough, No Dyspnea Gastrointestinal: No Nausea, No Vomiting, No Diarrhea, No abdominal Pain Genitourinary: No Dysuria, No Hematuria Musculoskeletal: positive right foot pain, No Myalgias, No Joint Swelling Skin: No Skin lacerations, No rash Neuro: No Weakness, No Numbness, No Paresthesias, No Loss of Consciousness, No Dizziness, No Headache Psych: No Anxiety/Panic, No Depression Heme/Lymph: no easy bruising, no Lymphadenopathy Endocrine: No Polyuria, No Polydipsia Yes all other systems are reviewed and are negative [facility] Past Medical History Attestation statement: The following information was validated with the patient. Source: old records reviewed Medical History Avascular necrosis of bone of left hip Carcinoid tumor Cervical cancer Chronic back pain Depression Hemorrhagic cerebrovascular accident (CVA) Migraines Seizures Surgical History H/O bilateral salpingo-oophorectomy History of appendectomy History of hysterectomy Social History Social History Alcohol intake: unknown Patient Tobacco Use Status: Tobacco use Unknown Advance Directives: No Advance Directives Information Provided: Yes Patient : No Physical Exam Vital Signs: Vital Signs: Last Vital Signs Temp 97.8 F 09/29/21 23:02 Pulse 100 09/29/21 23:02 Resp 16 09/29/21 23:02 BP 138/87 09/29/21 23:02 Pulse Ox 97 09/29/21 23:02 BMI result Body Mass Index 35.3 Appearance: Alert. Oriented X3. Moderate distress secondary to pain. Eyes: Pupils equal, round and reactive to light. EOMI. Sclera nonicteric. ENT: Pharynx normal. Moist mucous membranes. Neck: Normal inspection. Neck supple. CVS: Normal heart rate and rhythm. Pulses normal. Respiratory: No respiratory distress. Breath sounds normal. Abdomen: Soft and nontender. Skin: Skin warm and dry. Normal skin color. Normal skin turgor. Extremities: No lower extremity edema. Bruising noted to the right lateral malleolar process, bilateral malleolar tenderness, decreased flexion extension internal and external rotation secondary to pain. Brisk capillary refill and equal pulses to bilateral lower extremities. Neuro: No motor deficit. No sensory deficit. Cranial nerves 2-12 intact. Course Course Course Narrative: 46-year-old female presents with right foot pain and swelling after tripping over a roller skate. Patient is unable to bear weight. X-rays indicate 3rd metatarsal fracture. Ankle x-rays are pending. Ankle x-rays are negative. Will placed in posterior short-leg splint with crutches and instructions for nonweightbearing. Will provide oxycodone prescrip tion, detailed instructions regarding risks and benefits oxycodone use. Patient does understand nonweightbearing and crutch use. She does understand that she must call Orthopedics for an appointment. Patient verbalized understanding of and agrees to plan of care discharge home. Verbalized understanding of signs and symptoms indicating need for emergent intervention MDM - Extremity Injury (Lower) Differential Diagnosis Differential diagnosis: Likely ankle sprain and strain and ankle fracture Medical Records Attestation: I reviewed the patient's medical records. Imaging Data Foot and ankle x-ray: Attestation: I personally reviewed and interpreted this imaging study as follows: Radiologist's impression: EXAMINATION: XR ANKLE, RIGHT CLINICAL INFORMATION: Pain and swelling? COMPARISON: None? TECHNIQUE: AP, lateral, and mortise views of the right ankle. FINDINGS: No fracture or dislocation. The ankle mortise is congruent. No ankle joint effusion. Moderate hypertrophic spurring of the plantar aponeurosis and Achilles insertion to the calcaneus. The soft tissues are unremarkable.? XR/XR ankle RT min 3V IMPRESSION: No fracture or malalignment. Heel spurs. EXAMINATION: XR FOOT, RIGHT CLINICAL INFORMATION: Pain.? COMPARISON: None? TECHNIQUE: 3 views of the right foot. FINDINGS: Oblique fracture through the neck of the third metatarsal. The fracture is slightly displaced. There is no dislocation. Small plantar calcaneal spur. XR/XR foot RT min 3V IMPRESSION: Fracture through the neck of the third metatarsal. Procedures Orthopedic Splinting/Casting Injury #1: Side: right Lower Extremity Injury Location: foot Lower Extremity Immobilizer: posterior splint Other Orthopedic Equipment: crutches Discharge Plan Discharge Clinical Impression: Metatarsal bone fracture Patient Disposition: Home, Self-Care Instructions: Crutch Instructions (ED), Foot Fracture in Adults (ED), R.I.C.E. Treatment (ED) Additional Instructions: You were evaluated for injury sustained from falling over a roller skate. Your 3rd metatarsal in your foot is broken. Please keep posterior short-leg splint in place until you see orthopedics. Do not bear weight to the foot. You must use crutches to ambulate. I prescribed oxycodone for pain management. This medication is a narcotic and has high risk for addiction and abuse. Do not drive or operate machinery while taking this medication. This medication can delay reaction time, increase risk for drowsiness, increased risk for falls, and cause constipation. Drink plenty of fluids and consider using MiraLax and/or Colace as needed to help soften stools. Please follow-up with orthopedics. I referred you to [facility]. please call on Saturday to request an appointment. Thank you for choosing this emergency department for evaluation. Please follow-up with primary care physician as needed. Return to the emergency department for any new, concerning, or worsening symptoms. Prescriptions: New oxycodone 5 mg tablet 5 mg PO TID PRN (Reason: pain) Qty: 14 0RF Rx Instructions: Third metatarsal fracture of the right foot No Action atorvastatin 40 mg tablet 1 tab PO DAILY 0RF venlafaxine 37.5 mg capsule,extended release 24hr 1 cap PO DAILY 0RF quetiapine 300 mg tablet 1 tab PO BEDTIME 0RF clonazepam 0.5 mg tablet 0.5 - 1 tab PO BID PRN (Reason: panic attack) 0RF venlafaxine 150 mg capsule,extended release 24hr 150 cap PO DAILY 0RF hydroxyzine pamoate 50 mg capsule 1 cap PO TID 0RF albuterol sulfate [Ventolin HFA] 90 mcg/actuation HFA aerosol inhaler 2 puff PO Q4H PRN (Reason: wheezing) 0RF albuterol sulfate 90 mcg/actuation HFA aerosol inhaler 2 puff PO Q4H PRN (Reason: wheezing) 0RF topiramate 100 mg tablet 100 mg PO TID PRN (Reason: Anxiety) 0RF loratadine 10 mg tablet 1 tab PO DAILY PRN (Reason: allergies) 0RF prazosin 2 mg capsule 1 cap PO BEDTIME 0RF Flovent HFA 110 mcg/actuation HFA aerosol inhaler 1 puff PO BID 0RF nicotine 7 mg/24 hr patch 24 hour 1 patch topical DAILY 0RF tizanidine 6 mg capsule 1 cap PO TID 0RF quetiapine 50 mg tablet 1 tab PO BID PRN (Reason: Anxiety) 0RF lidocaine 5 % ointment 1 g topical BID PRN (Reason: Back Pain) 0RF Vraylar 1.5 mg capsule 1 cap PO DAILY 0RF Vraylar 3 mg capsule 1 cap PO DAILY 0RF DermacinRx Penetral 0.025 % cream 2 - 4 g topical BID 0RF ondansetron 4 mg tablet,disintegrating 4 mg PO Q8H PRN (Reason: nausea and vomiting) Qty: 20 0RF acetaminophen 500 mg capsule 500 mg PO Q6H PRN (Reason: pain) Qty: 10 0RF butenafine [Lotrimin Ultra] 1 % cream 1 appl topical BID 7 Days Qty: 30 0RF Rx Instructions: Apply to affected area prochlorperazine maleate [Compazine] 10 mg tablet 10 mg PO Q6H PRN (Reason: nausea and vomiting) Qty: 10 0RF ondansetron 4 mg tablet,disintegrating 4 mg PO ONCE PRN (Reason: nausea and vomiting) Qty: 10 0RF acetaminophen [Tylenol Extra Strength] 500 mg tablet 500 mg PO Q6H PRN (Reason: fever or pain) Qty: 30 0RF Referrals: Delonte Mckinley PA-C [[facility]] - 2 days (Right 3rd metatarsal fractur e) Stand Alone Forms: Work/School Release
[2021-09-29] MEDS: Acetaminophen 325 MG TABLET 975 MG PO (23:56)
[2021-09-30] MEDS: oxyCODONE HCl Immed Release 5 MG TABLET PO (00:42)
== END 2021-09-30 01:34 | disposition home or self-care (01) ==
PROVIDERS: Emergency Provider Internal Medicine
DX: S92.331A Displaced fracture of third metatarsal bone, right foot, initial encounter for closed fracture (principal); M79.671 Pain in right foot; W01.0XXA Fall on same level from slipping, tripping and stumbling without subsequent striking against object, initial encounter; Y93.9 Activity, unspecified; Y92.9 Unspecified place or not applicable; Y99.9 Unspecified external cause status; Z79.899 Other long term (current) drug therapy
CPT/HCPCS: 29515; 73610; 73630; 99283; 99284

== ENCOUNTER → 2021-10-04 08:06 | Outpatient (BNVA) | payer OTHER, SELFPAY | PROVIDERS: Visit Provider Physician Assistant | DX: S92.331A Displaced fracture of third metatarsal bone, right foot, initial encounter for closed fracture (principal) | CPT/HCPCS: 99202 ==

== ENCOUNTER 2021-10-19 16:48 | Emergency (ER) | payer OTHER, SELFPAY ==
[2021-10-19 16:56] VITALS: BP 151/87; PULSE 87; RESP 19; TEMP 36.6; O2SAT 98; BMI 33.9
--- NOTE | 2021-10-19 18:32 | ED_ITS ---
HPI - Wound/Laceration General Chief Complaint: Wound/Laceration Stated Complaint: sliced left finger Time Seen by Provider: 10/19/21 17:42 Source: patient Mode of arrival: ambulatory Limitations: no limitations History of Present Illness HPI narrative: Patient comes emergency room complaining of a laceration to the 4th digit of the left hand. Patient states that approximately 20 hours ago she was cooking dinner, accidentally sliced the palmar aspect of her 4th finger. Related Data Home Medications Medication Instructions Recorded Confirmed albuterol sulfate 90 mcg/actuation 2 puff PO Q4H PRN 01/20/21 01/20/21 aerosol inhaler albuterol sulfate 90 mcg/actuation 2 puff PO Q4H PRN 01/20/21 01/20/21 aerosol inhaler (Ventolin HFA) atorvastatin 40 mg tablet 1 tab PO DAILY 01/20/21 01/20/21 capsicum oleoresin 0.025 % topical 2 - 4 g TOPICAL BID 01/20/21 01/20/21 cream (DermacinRx Penetral) cariprazine 1.5 mg capsule 1 cap PO DAILY 01/20/21 01/20/21 (Vraylar) cariprazine 3 mg capsule (Vraylar) 1 cap PO DAILY 01/20/21 01/20/21 clonazepam 0.5 mg tablet 0.5 - 1 tab PO BID PRN 01/20/21 01/20/21 fluticasone propionate 110 1 puff PO BID 01/20/21 01/20/21 mcg/actuation HFA aerosol inhaler (Flovent HFA) hydroxyzine pamoate 50 mg capsule 1 cap PO TID 01/20/21 01/20/21 lidocaine 5 % topical ointment 1 g TOPICAL BID PRN 01/20/21 01/20/21 loratadine 10 mg tablet 1 tab PO DAILY PRN 01/20/21 01/20/21 nicotine 7 mg/24 hr daily 1 patch TOPICAL DAILY 01/20/21 01/20/21 transdermal patch prazosin 2 mg capsule 1 cap PO BEDTIME 01/20/21 01/20/21 quetiapine 300 mg tablet 1 tab PO BEDTIME 01/20/21 01/20/21 quetiapine 50 mg tablet 1 tab PO BID PRN 01/20/21 01/20/21 tizanidine 6 mg capsule 1 cap PO TID 01/20/21 01/20/21 topiramate 100 mg tablet 100 mg PO TID PRN 01/20/21 01/20/21 venlafaxine 150 mg 150 cap PO DAILY 01/20/21 01/20/21 capsule,extended release 24 hr venlafaxine 37.5 mg 1 cap PO DAILY 01/20/21 01/20/21 capsule,extended release 24 hr Previous Rx's Medication Instructions Recorded ondansetron 4 mg disintegrating 4 mg PO Q8H PRN #20 tab 06/03/20 tablet acetaminophen 500 mg capsule 500 mg PO Q6H PRN #10 cap 03/18/21 butenafine 1 % topical cream 1 appl TOPICAL BID 7 Days #30 g 03/18/21 (Lotrimin Ultra) prochlorperazine maleate 10 mg 10 mg PO Q6H PRN #10 tab 05/03/21 tablet (Compazine) acetaminophen 500 mg tablet 500 mg PO Q6H PRN #30 tab 08/23/21 (Tylenol Extra Strength) ondansetron 4 mg disintegrating 4 mg PO ONCE PRN #10 tab 08/23/21 tablet Kneeling Scooter #1 ea 10/04/21 oxycodone 5 mg tablet 5 mg PO BID PRN 7 Days #14 tab 10/04/21 Allergies Allergy/AdvReac Type Severity Reaction Status Date / Time aspirin [ASPIRIN] Allergy Unknown ASTHMA Verified 10/04/21 08:23 gabapentin [From NEURONTIN] Allergy Unknown SI Verified 10/04/21 08:23 ibuprofen Allergy Unknown Unknown Verified 10/04/21 08:23 nortriptyline [NORTRIPTYLINE] Allergy Unknown HIVES Verified 10/04/21 08:23 NSAIDS (Non-Steroidal Allergy Unknown BLEEDING/ Verified 10/04/21 08:23 Anti-Inflamma ASTHMA [NSAIDS] EXACERBATION Sulfa (Sulfonamide Allergy Unknown DEPRESSION Verified 10/04/21 08:23 Antibiotics) [SULFA (SULFONAMIDE ANTIBIOTICS)] tramadol [TRAMADOL] Allergy Unknown WHEEZES Verified 10/04/21 08:23 enoxaparin AdvReac Severe STATES SHE Verified 10/04/21 08:23 HAS SEVERE BLEEDING heparin [HEPARIN] AdvReac Severe STATES SHE Verified 10/04/21 08:23 HAS SEVERE BLEEDING SEAFOOD Allergy Intermediate BREATHING Uncoded 10/04/21 08:23 BLOOD THINNERS Allergy Unknown UNABLE DUE Uncoded 10/04/21 08:23 TO STROKE Review of Systems Review of Systems: Constitutional : No Weight loss, No Fever, No Chills, No Night Sweats, No Fatigue, No Malaise ENT/Mouth : No Hearing loss, No Ear Pain, No Nasal Congestion, No Sinus Pain, No Hoarseness, No sore throat, No Rhinorrhea, No Swallowing Difficulty Eyes: No Eye Pain, No Swelling, No Redness, No Foreign Body, No Discharge, No Vision Changes Cardiovascular : No Chest Pain, No SOB, No Dyspnea on Exertion, No Orthopnea, No Edema, No Palpitations Respiratory : No Cough, No Sputum, No Wheezing, No Smoke Exposure, No Dyspnea Gastrointestinal : No Nausea, No Vomiting, No Diarrhea, No Constipation, No abdominal Pain, No Hematochezia, No Melena Genitourinary : no irregular bleeding, No Dysuria, No Urinary Frequency, No Hematuria, No Urinary Incontinence, No Urgency, No Flank Pain, No Urinary Flow Changes, No Hesitancy Musculoskeletal : No joint pain, No Myalgias, No Joint Swelling Skin : Laceration to the palmar aspect of the 4th left finger Neuro : No Weakness, No Numbness, No Paresthesias, No Loss of Consciousness, No Dizziness, No Headache Psych : No Anxiety/Panic, No Depression, No SI/HI/AH/VH, No Social Issues, Heme/Lymph: No Bruising, No Bleeding,No Lymphadenopathy Endocrine : No Polyuria, No Polydipsia, No Temperature Intolerance PMFSH Past Medical History Medical History Avascular necrosis of bone of left hip Carcinoid tumor Cervical cancer Chronic back pain Depression Hemorrhagic cerebrovascular accident (CVA) Migraines Seizures Toe fracture, right Surgical History H/O bilateral salpingo-oophorectomy History of appendectomy History of hysterectomy Social History Social History Alcohol intake: unknown Patient Tobacco Use Status: Tobacco use Unknown Advance Directives: No Advance Directives Information Provided: No Patient : No Physical Exam Vital Signs: Vital Signs: Last Vital Signs Temp 98 F 10/19/21 16:56 Pulse 87 10/19/21 16:56 Resp 19 10/19/21 16:56 BP 151/87 H 10/19/21 16:56 Pulse Ox 98 10/19/21 16:56 BMI result Body Mass Index 33.9 Const: Other: Appearance: Alert. Oriented X3. No acute distress. Eyes: Pupils equal, round and reactive to light. ENT: Pharynx normal. Neck: Normal inspection. Neck supple. No lymph nodes noted. No crepitus CVS: Normal heart rate and rhythm. Pulses normal. Normal S1 and S2 Respiratory: No respiratory distress. Breath sounds normal. No Wheezing. No rales Abdomen: Soft and nontender. No rigidity. No distention. Skin: Skin warm and dry. 1 cm laceration to the distal aspect of the 4th finger palmar aspect Extremities: No lower extremity edema. No Lacerations. No Rash patient is able to flex and extend all fingers of the hand, adduct and abduct. Fingers were examined under a bloodless field Neuro: Oriented X 3. No motor deficit. No sensory deficit. Moving all extremities. No slurred speech. CN 2 through 12 grossly intact Psych: calm, cooperative, normal affect Course Course Course Narrative: Patient tolerated well the procedure. For stitches applied. Tdap was given IM today Procedures Laceration Laceration 1: Site: hand Side (If applicable): left Size (cm): 1 Description: linear and flap Depth: simple, single layer Local Anesthetic: lidocaine 2% Amount of anesthesia used (mL): 2 Pre-repair: wound explored Skin layer closed with: nylon Size (cm): 6-0 Number of sutures: 4 Technique: simple, interrupted Discharge Plan Discharge Clinical Impression: Laceration Patient Disposition: Home, Self-Care Instructions: Laceration (ED) Additional Instructions: If you see any signs of infection such as redness, pus drainage, fever or chills, please return to emergency room. Otherwise, your sutures need to be removed in 7-10 days, can be done in the emergency room or with his primary care physician. If you have any worsening or new symptoms, please return to the emergency room or call 911 Prescriptions: No Action atorvastatin 40 mg tablet 1 tab PO DAILY 0RF venlafaxine 37.5 mg capsule,extended release 24hr 1 cap PO DAILY 0RF quetiapine 300 mg tablet 1 tab PO BEDTIME 0RF clonazepam 0.5 mg tablet 0.5 - 1 tab PO BID PRN (Reason: panic attack) 0RF venlafaxine 150 mg capsule,extended release 24hr 150 cap PO DAILY 0RF hydroxyzine pamoate 50 mg capsule 1 cap PO TID 0RF albuterol sulfate [Ventolin HFA] 90 mcg/actuation HFA aerosol inhaler 2 puff PO Q4H PRN (Reason: wheezing) 0RF albuterol sulfate 90 mcg/actuation HFA aerosol inhaler 2 puff PO Q4H PRN (Reason: wheezing) 0RF topiramate 100 mg tablet 100 mg PO TID PRN (Reason: Anxiety) 0RF loratadine 10 mg tablet 1 tab PO DAILY PRN (Reason: allergies) 0RF prazosin 2 mg capsule 1 cap PO BEDTIME 0RF Flovent HFA 110 mcg/actuation HFA aerosol inhaler 1 puff PO BID 0RF nicotine 7 mg/24 hr patch 24 hour 1 patch topical DAILY 0RF tizanidine 6 mg capsule 1 cap PO TID 0RF quetiapine 50 mg tablet 1 tab PO BID PRN (Reason: Anxiety) 0RF lidocaine 5 % ointment 1 g topical BID PRN (Reason: Back Pain) 0RF Vraylar 1.5 mg capsule 1 cap PO DAILY 0RF Vraylar 3 mg capsule 1 cap PO DAILY 0RF DermacinRx Penetral 0.025 % cream 2 - 4 g topical BID 0RF ondansetron 4 mg tablet,disintegrating 4 mg PO Q8H PRN (Reason: nausea and vomiting) Qty: 20 0RF acetaminophen 500 mg capsule 500 mg PO Q6H PRN (Reason: pain) Qty: 10 0RF butenafine [Lotrimin Ultra] 1 % cream 1 appl topical BID 7 Days Qty: 30 0RF Rx Instructions: Apply to affected area prochlorperazine maleate [Compazine] 10 mg tablet 10 mg PO Q6H PRN (Reason: nausea and vomiting) Qty: 10 0RF ondansetron 4 mg tablet,disintegrating 4 mg PO ONCE PRN (Reason: nausea and vomiting) Qty: 10 0RF acetaminophen [Tylenol Extra Strength] 500 mg tablet 500 mg PO Q6H PRN (Reason: fever or pain) Qty: 30 0RF (DME) Kneeling Scooter See Rx Instructions .ROUTE .MEDSUPPLY Qty: 1 0RF Rx Instructions: As directed oxycodone 5 mg tablet 5 mg PO BID PRN (Reason: pain) 7 Days Qty: 14 0RF Rx Instructions: Third metatarsal fracture of the right foot
[2021-10-19] MEDS: Lidocaine HCl 2 % MPF 5 ML VIAL INFILTRATI (18:36)
[2021-10-19] MEDS: Diphth,Pertus(ACell),Tet Adult 0.5 ML SYRINGE IM (19:10)
== END 2021-10-19 19:20 | disposition home or self-care (01) ==
PROVIDERS: Emergency Provider Emergency Medicine
DX: S61.215A Laceration without foreign body of left ring finger without damage to nail, initial encounter (principal); W26.0XXA Contact with knife, initial encounter; Y93.G1 Activity, food preparation and clean up; Y92.030 Kitchen in apartment as the place of occurrence of the external cause; Y99.9 Unspecified external cause status
CPT/HCPCS: 12001; 90471; 90715; 99284

== ENCOUNTER 2022-03-29 15:52 | Emergency (ER) | payer OTHER, SELFPAY ==
[2022-03-29 16:14] VITALS: BP 150/86; PULSE 74; RESP 16; TEMP 37; O2SAT 98; BMI 35.3
== END 2022-03-29 21:26 | disposition left against medical advice (07) ==
PROVIDERS: Emergency Provider Emergency Medicine; PCP Physician Assistant
DX: G43.909 Migraine, unspecified, not intractable, without status migrainosus (principal)
CPT/HCPCS: 99281

== ENCOUNTER 2022-08-22 06:23 | Emergency (ER) | payer OTHER, SELFPAY ==
--- NOTE | ~2022-08-22 | CT_ITS ---
EXAMINATION: CT HEAD WITHOUT CONTRAST CLINICAL INFORMATION: 47-year-old with headache and visual changes with neck pain. COMPARISON: None. TECHNIQUE: Contiguous axial imaging was performed from the skull base to vertex without intravenous administration of contrast. This CT examination was performed using dose optimization techniques as appropriate, variously including the following: *Automated exposure control *Adjustment of mA and/or kV according to patient size (this includes techniques or standardized protocols for targeted exams where dose is matched to indication/reason for exam; i.e. extremities or head) *Use of iterative reconstruction technique DLP: 736 mGy-cm. FINDINGS: Brain Volume: Within normal limits within the limitations of qualitative assessment. Structural: No malformations. Brain and Meninges: There are scattered small, faint patchy zones of the slight hypodensity in the subcortical white matter of both frontal lobes, right occipital lobe and left subinsular region, which are nonspecific findings. There is no associated mass effect. No acute territorial infarct, hemorrhage, extra-axial fluid collection, significant space-occupying process or mass effect are identified. There is a 3 mm hypodensity in the inferior basal ganglia on the left, likely a perivascular space space on this location. [place]-white matter differentiation is maintained. Ventricles and Subarachnoid Spaces: The ventricular system and subarachnoid spaces are within normal range; there is no hydrocephalus. Orbital Structures: Grossly unremarkable within the limitations of the study. Osseous Structures, Sinuses/Mastoids, Extracranial Soft Tissues: Unremarkable CT/CT head/brain wo IV con IMPRESSION: 1. No acute intracranial process suspected. 2. Subtle small patchy zones of subcortical white matter hypodensity in the cerebral hemispheres and left subinsular region as discussed above which are nonspecific findings. Recommend MRI of the brain without and with contrast to further assess these. 3. Otherwise unremarkable exam.
[2022-08-22 06:32] VITALS: BP 137/89; PULSE 73; RESP 18; TEMP 36.6; O2SAT 100; BMI 16.5
--- NOTE | 2022-08-22 07:17 | PC.NURSE ---
47 y/o F pw migraine since last night, unrelieved by home Rx. c/o associated nausea. VSS at this time. awaiting Md recs.
[2022-08-22 07:42] VITALS: BP 145/59; PULSE 73; RESP 14; TEMP 36.7; O2SAT 98
[2022-08-22] MEDS: Butalb/Acetamin/Caff 50/325/40 TABLET 1 TAB PO (08:28)
[2022-08-22] MEDS: Ondansetron ODT 4 MG TAB.RAPDIS TRANSLINGU (08:29)
--- NOTE | 2022-08-22 08:51 | ED.HA ---
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 last night with associated nausea and vomiting. Patient states she took Tylenol at both 12:00 a.m. and 4:00 a.m. with no relief of symptoms. She describes her pain as 'pain throughout her whole head' and states has had similar symptoms in the past, however; she complains of the pain radiating down her neck and vision changes which she states is new to her. She denies any paresthesias or weakness, she denies any shortness of breath, chest pain, recent illness, or sick contacts. MD elicited complaint: migraine Pertinent past history: migraines Onset (ago): hour(s) (> 10 hrs) Time: 23:00 Location: diffuse Severity: severe Pain scale (0-10): 8 Relieving factors: nothing Treatments prior to arrival: acetaminophen Related Data Home Medications Medication Instructions Recorded Confirmed albuterol sulfate 90 mcg/actuation 2 puff PO Q4H PRN wheezing 01/20/21 01/24/22 aerosol inhaler albuterol sulfate 90 mcg/actuation 2 puff PO Q4H PRN wheezing 01/20/21 01/24/22 aerosol inhaler (Ventolin HFA) atorvastatin 40 mg tablet 1 tab PO DAILY 01/20/21 01/24/22 capsicum oleoresin 0.025 % topical 2 - 4 g topical BID 01/20/21 01/24/22 cream (DermacinRx Penetral) cariprazine 1.5 mg capsule 1 cap PO DAILY 01/20/21 01/24/22 (Vraylar) cariprazine 3 mg capsule (Vraylar) 1 cap PO DAILY 01/20/21 01/24/22 clonazepam 0.5 mg tablet 0.5 - 1 tab PO BID PRN panic attack 01/20/21 01/24/22 fluticasone propionate 110 1 puff PO BID 01/20/21 01/24/22 mcg/actuation HFA aerosol inhaler (Flovent HFA) hydroxyzine pamoate 50 mg capsule 1 cap PO TID 01/20/21 01/24/22 lidocaine 5 % topical ointment 1 g topical BID PRN Back Pain 01/20/21 01/24/22 loratadine 10 mg tablet 1 tab PO DAILY PRN allergies 01/20/21 01/24/22 prazosin 2 mg capsule 1 cap PO BEDTIME 01/20/21 01/24/22 quetiapine 300 mg tablet 1 tab PO BEDTIME 01/20/21 01/24/22 quetiapine 50 mg tablet 1 tab PO BID PRN Anxiety 01/20/21 01/24/22 tizanidine 6 mg capsule 1 cap PO TID 01/20/21 01/24/22 topiramate 100 mg tablet 100 mg PO TID PRN Anxiety 01/20/21 01/24/22 venlafaxine 150 mg 150 cap PO DAILY 01/20/21 01/24/22 capsule,extended release 24 hr venlafaxine 37.5 mg 1 cap PO DAILY 01/20/21 01/24/22 capsule,extended release 24 hr Previous Rx's Medication Instructions Recorded ondansetron 4 mg disintegrating 4 mg PO Q8H PRN nausea and 06/03/20 tablet vomiting #20 tabs acetaminophen 500 mg capsule 500 mg PO Q6H PRN pain #10 caps 03/18/21 butenafine 1 % topical cream 1 appl topical BID 1 week #30 grams 03/18/21 (Lotrimin Ultra) acetaminophen 500 mg tablet 500 mg PO Q6H PRN fever or pain 08/23/21 (Tylenol Extra Strength) #30 tabs Allergies Allergy/AdvReac Type Severity Reaction Status Date / Time aspirin [ASPIRIN] Allergy Unknown ASTHMA Verified 10/04/21 08:23 gabapentin [From NEURONTIN] Allergy Unknown SI Verified 10/04/21 08:23 ibuprofen Allergy Unknown Unknown Verified 10/04/21 08:23 nortriptyline [NORTRIPTYLINE] Allergy Unknown HIVES Verified 10/04/21 08:23 NSAIDS (Non-Steroidal Allergy Unknown BLEEDING/ Verified 10/04/21 08:23 Anti-Inflamma ASTHMA [NSAIDS] EXACERBATION Sulfa (Sulfonamide Allergy Unknown DEPRESSION Verified 10/04/21 08:23 Antibiotics) [SULFA (SULFONAMIDE ANTIBIOTICS)] tramadol [TRAMADOL] Allergy Unknown WHEEZES Verified 10/04/21 08:23 enoxaparin AdvReac Severe STATES SHE Verified 10/04/21 08:23 HAS SEVERE BLEEDING heparin [HEPARIN] AdvReac Severe STATES SHE Verified 10/04/21 08:23 HAS SEVERE BLEEDING SEAFOOD Allergy Intermediate BREATHING Uncoded 10/04/21 08:23 BLOOD THINNERS Allergy Unknown UNABLE DUE Uncoded 10/04/21 08:23 TO STROKE Review of Systems Review of Systems: In addition to documented HPI above, the additional ROS was obtained: Constitutional: No Weight loss, No Fever, No Chills ENT/Mouth: No Ear Pain, No Nasal Congestion, No Sinus Pain, No Hoarseness, No sore throat, No Rhinorrhea, No Swallowing Difficulty Cardiovascular: No Chest Pain, No SOB Respiratory: No Cough, No Sputum, No Wheezing Gastrointestinal: No Nausea, No Vomiting, No Diarrhea, No Constipation, No Abdominal pain Genitourinary: No Dysuria, No Urinary Frequency, No Hematuria, No Urinary Incontinence/retention, No Urgency, No Flank Pain Musculoskeletal: No joint pain, No Myalgias, No Joint Swelling Skin: No Skin Lesions, No rash Neuro: No Weakness, No Numbness, No Paresthesias Yes all other systems are reviewed and are negative PMFSH Past Medical History Medical History Avascular necrosis of bone of left hip Carcinoid tumor Cervical cancer Chronic back pain Depression Hemorrhagic cerebrovascular accident (CVA) Migraines Seizures Toe fracture, right Surgical History H/O bilateral salpingo-oophorectomy History of appendectomy History of hysterectomy Family History Family History Father Cancer of kidney Paternal Uncle Colon cancer Paternal Uncle Cancer Social History Social History (Updated 01/24/22 @ 09:47 by Yajaira Fontenot) Household Members: None Housing: Apartment Are you a primary med care manager to a significant other at home: No Do you presently have visiting nurse or other home services: No Alcohol intake: unknown Patient Tobacco Use Status: Tobacco use Unknown Tobacco use type: Cigarette Smoked in Last 30 Days: No Use of substances other than those prescribed or required for medical reasons: No Advance Directives: No Advance Directives Information Provided: No service: No Current occupational status: disabled Physical Exam Vital Signs: Vital Signs: Last Vital Signs Temp 98.1 F 08/22/22 13:44 Pulse 60 08/22/22 13:44 Resp 14 08/22/22 13:44 BP 135/81 08/22/22 13:44 Pulse Ox 93 08/22/22 13:44 O2 Del Method 08/22/22 13:44 BMI result Body Mass Index 16.5 Nursing notes and vital signs reviewed. GENERAL APPEARANCE: A&0 x 4, generally well appearing, no acute distress HENMT: Normal to inspection, atraumatic, face symmetrical. Normal external ears, nose, and oropharynx clear. EYE: PERRLA, EOM intact, structures appear normal NECK: Supple without lymphadenopathy. No stiffness or restricted ROM. CHEST: Normal to inspection HEART: Normal rate and regular rhythm, normal S1/S2, no M/R/G LUNGS: LS CTA, moving air well. Able to speak in complete sentences. No crackles, wheezes, or rhonchi auscultated ABDOMEN: Soft, nontender, nondistended. Normal bowel sounds noted BACK: No CVAT, no obvious deformity EXTREMITIES: Moving all extremities without difficulty. No cyanosis, clubbing, or edema. Normal capillary refill. NEUROLOGICAL: Alert and oriented, moving all 4 extremities with equal strength. CN not formally tested but appearing grossly intact. Observed to ambulate with normal gait. Cognition normal SKIN: Warm and dry without any lesions, rash, or visible sores PSYCH: Cooperative, normal affect, normal thought process Medications Administered Discontinued Medications Generic Name Dose Route Start Last Admin Trade Name Freq PRN Reason Stop Dose Admin Acetaminophen/Butalbital/Caffeine 1 tab 08/22/22 08:12 08/22/22 08:28 Butalb/Acetamin/Caff 50/325/40 Tablet PO 08/22/22 08:13 1 tab ONCE ONE Administration Dexamethasone Sodium Phosphate 4 mg 08/22/22 11:45 08/22/22 12:01 Dexamethasone Sod Phosphate 4 Mg/Ml Vial IVPUSH 08/22/22 11:46 4 mg ONCE ONE Administration Diphenhydramine HCl 50 mg 08/22/22 09:55 08/22/22 10:22 Diphenhydramine Hcl 50 Mg/Ml Vial IVPUSH 08/22/22 09:56 50 mg ONCE ONE Administration Sodium Chloride 1,000 mls @ 999 mls/hr 08/22/22 10:00 08/22/22 11:19 Ns IV 08/22/22 11:00 Infused .Q1H1M PETEY Infusion Sodium Chloride 1,000 mls @ 999 mls/hr 08/22/22 14:00 08/22/22 14:50 Ns IV 08/22/22 15:00 Not Given .Q1H1M PETEY Metoclopramide HCl 10 mg 08/22/22 11:45 08/22/22 12:01 Metoclopramide Hcl 10 Mg/2 Ml Vial IVPUSH 08/22/22 11:46 10 mg ONCE ONE Administration Ondansetron HCl 4 mg 08/22/22 08:12 08/22/22 08:29 Ondansetron Odt 4 Mg Tab.Rapdis TRANSLINGU 08/22/22 08:13 4 mg ONCE ONE Administration Medical Decision Making Medical Decision Making MDM Narrative: 47 old female with past medical history migraines and 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 last night with associated nausea and vomiting. 1 L NS, zofran, fioricet, and benadryl given with moderate relief of headache. Additional 1 L NS, reglan, and decadron given with good effect. Pt states she is comfortable for discharge at this time. Patient is safe for discharge at this time with plan to manage migraines with [id number] Tylenol and/or ibuprofen. HPI, PE, diagnostics, and plan discussed with patient and family with no unanswered questions at this time. Patient educated to return to the emergency department with new, worsening, or concerning emergent symptoms. Recommended to follow-up with her primary care provider for further treatment and management. *Refer to Course for additional information on consultations, diagnostic interpretation, consultations, emergency department stay, conversations with patient and family, shared decision making with patient, and more information on medical decision making* Lab Data 08/22/22 10:54 08/22/22 10:54 Labs: Lab Results 08/22/22 08/22/22 Range/Units 10:54 10:54 WBC 9.9 (4.8-10.8) X10*3/uL RBC 4.67 (4.20-5.50) X10*6/uL Hgb 13.2 (12.0-16.0) g/dl Hct 40.0 (37.0-47.0) % MCV 85.7 (80.0-98.0) fL MCH 28.3 (27.0-33.0) pg MCHC 33.0 (31.0-35.0) g/dl RDW 13.5 (11.0-16.0) % Plt Count 220 D (160-400) X10*3/uL MPV 10.4 (9.4-12.3) fL Immature Gran % (Auto) 0.7 H (0.0-0.4) % Neut % (Auto) 59.8 (45-73) % Lymph % (Auto) 32.9 (20-40) % [place] % (Auto) 5.4 (2-11) % Eos % (Auto) 0.9 (0-4) % Baso % (Auto) 0.3 (0-2) % Lymph # (Auto) 3.3 (1.2-4.9) X10*3/uL [place] # (Auto) 0.5 (0.1-1.2) X10*3/uL Eos # (Auto) 0.1 (0.0-0.4) X10*3/uL Baso # (Auto) 0.0 (0.0-0.2) X10*3/uL Abs Immat Gran (auto) 0.07 H (0.00-0.03) X10*3/uL Absolute Neuts (auto) 5.9 (2.0-8.3) x10*3/uL Absolute Nucleated RBC 0.000 (0.0-0.012) X10*3/uL Nucleated RBC % (auto) 0.0 (0.0-0.2) /100WBC Sodium 141 (135-145) mmol/L Potassium 4.1 (3.3-5.1) mmol/L Chloride 107 (96-108) mmol/L Carbon Dioxide 28 (22-29) mmol/L Anion Gap 10 L (12-20) BUN 16 (9-16) mg/dL Creatinine 0.89 (0.5-1.4) mg/dL Estim Creat Clear Calc 56.4 Estimated GFR > 60 Random Glucose 83 (60-115) mg/dL Calcium 9.2 (8.4-10.2) mg/dL Magnesium 1.8 (1.6-2.6) mg/dL Total Bilirubin 0.3 (0.0-1.0) mg/dL AST 15 (5-31) U/L ALT 13 (0-31) U/L Alkaline Phosphatase 100 (39-117) U/L Total Protein 6.2 L (6.5-8.0) g/dL Albumin 3.7 (3.5-5.0) g/dL Discharge Plan Discharge Clinical Impression: Migraine Patient Disposition: Home, Self-Care Instructions: Migraine Headache (ED) Prescriptions: No Action atorvastatin 40 mg tablet 1 tab PO DAILY venlafaxine 37.5 mg capsule,extended release 24hr 1 cap PO DAILY quetiapine 300 mg tablet 1 tab PO BEDTIME clonazepam 0.5 mg tablet 0.5 - 1 tab PO BID PRN (Reason: panic attack) venlafaxine 150 mg capsule,extended release 24hr 150 cap PO DAILY hydroxyzine pamoate 50 mg capsule 1 cap PO TID albuterol sulfate [Ventolin HFA] 90 mcg/actuation HFA aerosol inhaler 2 puff PO Q4H PRN (Reason: wheezing) albuterol sulfate 90 mcg/actuation HFA aerosol inhaler 2 puff PO Q4H PRN (Reason: wheezing) topiramate 100 mg tablet 100 mg PO TID PRN (Reason: Anxiety) loratadine 10 mg tablet 1 tab PO DAILY PRN (Reason: allergies) prazosin 2 mg capsule 1 cap PO BEDTIME fluticasone propionate [Flovent HFA] 110 mcg/actuation HFA aerosol inhaler 1 puff PO BID tizanidine 6 mg capsule 1 cap PO TID quetiapine 50 mg tablet 1 tab PO BID PRN (Reason: Anxiety) lidocaine 5 % ointment 1 g topical BID PRN (Reason: Back Pain) Vraylar 1.5 mg capsule 1 cap PO DAILY Vraylar 3 mg capsule 1 cap PO DAILY DermacinRx Penetral 0.025 % cream 2 - 4 g topical BID ondansetron 4 mg tablet,disintegrating 4 mg PO Q8H PRN (Reason: nausea and vomiting) Qty: 20 0RF acetaminophen 500 mg capsule 500 mg PO Q6H PRN (Reason: pain) Qty: 10 0RF butenafine [Lotrimin Ultra] 1 % cream 1 appl topical BID 7 Days Qty: 30 0RF Rx Instructions: Apply to affected area acetaminophen [Tylenol Extra Strength] 500 mg tablet 500 mg PO Q6H PRN (Reason: fever or pain) Qty: 30 0RF Referrals: [facility] [place] [facility] [place]] [facility] [place] [facility] [place] [facility]] [facility] [place] [facility] [[facility] Group] Interventions: ED Discharge Assessment Last Done: 08/22/22 15:22 Discharge Date/Time: 08/22/22 15:22 Print Language: Kazakh
[2022-08-22] MEDS: 0.9 % Sodium Chloride 1,000 ML 999 ML IV (10:22)
[2022-08-22] MEDS: diphenhydrAMINE HCL 50 MG/ML VIAL IVPUSH (10:22)
[2022-08-22 11:01] LABS: MANUAL DIFF FLAG NO
[2022-08-22 11:05] LABS: Basophils Percent Auto 0.3 % (0-2); Eosinophils Absolute Auto 0.1 X10*3/uL (0.0-0.4); Eosinophils Percent Auto 0.9 % (0-4); Hemoglobin 13.2 g/dl (12.0-16.0); Imm Gran Abs Auto 0.07 X10*3/uL (0.00-0.03); Imm Gran Pct Auto 0.7 % (0.0-0.4); Lymphocytes Absolute Auto 3.3 X10*3/uL (1.2-4.9); Lymphocytes Percent Auto 32.9 % (20-40); Mean Corpuscular Hemoglobin 28.3 pg (27.0-33.0); Mean Corpuscular Volume 85.7 fL (80.0-98.0); Mean Platelet Volume 10.4 fL (9.4-12.3); Monocytes Absolute Auto 0.5 X10*3/uL (0.1-1.2); Monocytes Percent Auto 5.4 % (2-11); Neutrophils Absolute Auto 5.9 x10*3/uL (2.0-8.3); Neutrophils Percent Auto 59.8 % (45-73); Platelet Count 220 X10*3/uL (160-400); Red Blood Count 4.67 X10*6/uL (4.20-5.50); Red Cell Distribution Width 13.5 % (11.0-16.0); White Blood Count 9.9 X10*3/uL (4.8-10.8)
[2022-08-22 11:30] LABS: Alanine Aminotransferase 13 U/L (0-31); Albumin Level 3.7 g/dL (3.5-5.0); Alkaline Phosphatase 100 U/L (39-117); Anion Gap 10 (12-20); Aspartate Amino Transferase 15 U/L (5-31); Bilirubin Total 0.3 mg/dL (0.0-1.0); Blood Urea Nitrogen 16 mg/dL (9-16); Calcium 9.2 mg/dL (8.4-10.2); Carbon Dioxide 28 mmol/L (22-29); Chloride 107 mmol/L (96-108); Creatinine Clr Calc Pharmacy 56.4; Estimated Glomerular Filt Rate > 60; Glucose Random 83 mg/dL (60-115); Magnesium 1.8 mg/dL (1.6-2.6); Potassium 4.1 mmol/L (3.3-5.1); Sodium 141 mmol/L (135-145); Total Protein 6.2 g/dL (6.5-8.0)
[2022-08-22] MEDS: dexAMETHasone sod phosphate 4 MG/ML VIAL IVPUSH (12:01)
[2022-08-22] MEDS: Metoclopramide HCl 10 MG/2 ML VIAL IVPUSH (12:01)
[2022-08-22 12:18] VITALS: BP 138/82; PULSE 75; RESP 14; TEMP 36.6; O2SAT 96
[2022-08-22 13:44] VITALS: BP 135/81; PULSE 60; RESP 14; TEMP 36.7; O2SAT 93
== END 2022-08-22 15:22 | disposition home or self-care (01) ==
PROVIDERS: Nurse Practitioner Family; Emergency Provider Emergency Medicine
DX: G43.909 Migraine, unspecified, not intractable, without status migrainosus (principal); C53.9 Malignant neoplasm of cervix uteri, unspecified; I69.954 Hemiplegia and hemiparesis following unspecified cerebrovascular disease affecting left non-dominant side; Z87.891 Personal history of nicotine dependence; Z79.899 Other long term (current) drug therapy; Z79.02 Long term (current) use of antithrombotics/antiplatelets
CPT/HCPCS: 36415; 70450; 80053; 83735; 85025; 96361; 96374; 96375; 99284; J1100; J1200; J2765

== ENCOUNTER 2024-03-01 20:42 | Emergency (ER) | payer OTHER, SELFPAY ==
[2024-03-01 20:44] VITALS: BP 140/94; PULSE 76; RESP 18; TEMP 36.8; O2SAT 98; BMI 36.2
--- NOTE | 2024-03-01 21:23 | ED_ITS ---
HPI - Headache General Chief Complaint: Headache Stated Complaint: Migraine, vomiting, dizzy Time Seen by Provider: 03/01/24 21:13 Source: patient Mode of arrival: ambulatory Limitations: no limitations History of Present Illness ED Provider: Dr. Geovany Wiseman HPI Narrative: 48-year-old female with a history cervical cancer, avascular necrosis of the left hip, carcinoid tumor, seizure, depression, hemorrhagic CVA with residual left-sided weakness, chronic back pain, migraines who presents emergency department for evaluation of 2 days of a migraine headache. She states that she has pain on both sides of her head that radiate to the back of her head and down her neck. She states the pain usually can be treated with Tylenol but this is not work. She states that today the pain was severe and was greater than 10/10. She had associated nausea, vomiting, photophobia and phonophobia. She states she has residual weakness on the left side of her body but no new weakness. She denied fever, chills, chest pain, shortness of breath, cough, frequency, urgency or dysuria. Related Data Home Medications ?Medication ?Instructions ?Recorded ?Confirmed albuterol sulfate 90 mcg/actuation 2 puff PO Q4H PRN wheezing 01/20/21 01/24/22 aerosol inhaler albuterol sulfate 90 mcg/actuation 2 puff PO Q4H PRN wheezing 01/20/21 01/24/22 aerosol inhaler (Ventolin HFA) atorvastatin 40 mg tablet 1 tab PO DAILY 01/20/21 01/24/22 capsicum oleoresin 0.025 % topical 2 - 4 g topical BID 01/20/21 01/24/22 cream (DermacinRx Penetral) cariprazine 1.5 mg capsule 1 cap PO DAILY 01/20/21 01/24/22 (Vraylar) cariprazine 3 mg capsule (Vraylar) 1 cap PO DAILY 01/20/21 01/24/22 clonazepam 0.5 mg tablet 0.5 - 1 tab PO BID PRN panic attack 01/20/21 01/24/22 fluticasone propionate 110 1 puff PO BID 01/20/21 01/24/22 mcg/actuation HFA aerosol inhaler (Flovent HFA) hydroxyzine pamoate 50 mg capsule 1 cap PO TID 01/20/21 01/24/22 lidocaine 5 % topical ointment 1 g topical BID PRN Back Pain 01/20/21 01/24/22 loratadine 10 mg tablet 1 tab PO DAILY PRN allergies 01/20/21 01/24/22 prazosin 2 mg capsule 1 cap PO BEDTIME 01/20/21 01/24/22 quetiapine 300 mg tablet 1 tab PO BEDTIME 01/20/21 01/24/22 quetiapine 50 mg tablet 1 tab PO BID PRN Anxiety 01/20/21 01/24/22 tizanidine 6 mg capsule 1 cap PO TID 01/20/21 01/24/22 topiramate 100 mg tablet 100 mg PO TID PRN Anxiety 01/20/21 01/24/22 venlafaxine 150 mg 150 cap PO DAILY 01/20/21 01/24/22 capsule,extended release 24 hr venlafaxine 37.5 mg 1 cap PO DAILY 01/20/21 01/24/22 capsule,extended release 24 hr Previous Rx's ?Medication ?Instructions ?Recorded ondansetron 4 mg disintegrating 4 mg PO Q8H PRN nausea and 06/03/20 tablet vomiting #20 tabs acetaminophen 500 mg capsule 500 mg PO Q6H PRN pain #10 caps 03/18/21 butenafine 1 % topical cream 1 appl topical BID 1 week #30 grams 03/18/21 (Lotrimin Ultra) acetaminophen 500 mg tablet 500 mg PO Q6H PRN fever or pain 08/23/21 (Tylenol Extra Strength) #30 tabs acetaminophen 500 mg tablet 1,000 mg (2 x 500 mg) PO Q6H PRN 03/02/24 (Tylenol Extra Strength) fever or pain #20 tabs morphine 15 mg immediate release 15 mg PO Q6H PRN pain #10 tabs 03/02/24 tablet ondansetron 4 mg disintegrating 4 mg PO Q6-8H PRN nausea and 03/02/24 tablet vomiting #14 tabs Allergies Allergy/AdvReac Type Severity Reaction Status Date / Time aspirin [ASPIRIN] Allergy Unknown ASTHMA Verified 03/01/24 20:49 gabapentin [From NEURONTIN] Allergy Unknown SI Verified 03/01/24 20:49 ibuprofen Allergy Unknown Unknown Verified 03/01/24 20:49 nortriptyline [NORTRIPTYLINE] Allergy Unknown HIVES Verified 03/01/24 20:49 NSAIDS (Non-Steroidal Allergy Unknown BLEEDING/ Verified 03/01/24 20:49 Anti-Inflamma ASTHMA [NSAIDS] EXACERBATION Sulfa (Sulfonamide Allergy Unknown DEPRESSION Verified 03/01/24 20:49 Antibiotics) [SULFA (SULFONAMIDE ANTIBIOTICS)] tramadol [TRAMADOL] Allergy Unknown WHEEZES Verified 03/01/24 20:49 enoxaparin AdvReac Severe STATES SHE Verified 03/01/24 20:49 HAS SEVERE BLEEDING heparin [HEPARIN] AdvReac Severe STATES SHE Verified 03/01/24 20:49 HAS SEVERE BLEEDING SEAFOOD Allergy Intermediate BREATHING Uncoded 03/01/24 20:49 BLOOD THINNERS Allergy Unknown UNABLE DUE Uncoded 03/01/24 20:49 TO STROKE Review of Systems Review of Systems: Yes all other systems are reviewed and are negative PMFSH Past Medical History Medical History Avascular necrosis of bone of left hip Carcinoid tumor Cervical cancer Chronic back pain Depression Hemorrhagic cerebrovascular accident (CVA) Migraines Seizures Toe fracture, right Surgical History H/O bilateral salpingo-oophorectomy History of appendectomy History of hysterectomy Family History Family History Father Cancer of kidney Paternal Uncle Colon cancer Paternal Uncle Cancer Social History Social History (Updated 01/24/22 @ 09:47 by Yajaira Fontenot) Household Members: None Housing: Apartment Are you a primary clinical care coordinator to a significant other at home: No Do you presently have visiting nurse or other home services: No Alcohol intake: unknown Patient Tobacco Use Status: Tobacco use Unknown Tobacco use type: Cigarette Smoked in Last 30 Days: Yes Use of substances other than those prescribed or required for medical reasons: No Advance Directives: Yes Advance Directives Information Provided: No Advance Directives on File: No Patient : No service: No Current occupational status: disabled Physical Exam Vital Signs: Vital Signs: Last Vital Signs Temp 97.8 F 03/02/24 00:29 Pulse 65 03/02/24 00:29 Resp 15 03/02/24 00:31 BP 125/73 03/02/24 00:29 Pulse Ox 98 03/02/24 00:29 O2 Del Method Room Air 03/02/24 00:29 BMI result Body Mass Index 36.2 Vital signs revealed an elevated blood pressure otherwise unremarkable Exam: General: Awake, alert, appears to be in distress secondary to her headache, covers her eyes secondary to photophobia Head: Normocephalic, atraumatic EENT: PERRL, Lids normal, sclera normal, conjunctiva normal, nose normal , ears normal, throat without erythema or exudates Neck: Supple, no adenopathy Lung: breath sounds symmetric, no wheezing, rales or rhonchi Chest: symmetric movement, nontender Heart: regular rate and rhythm, normal S1, S2 no murmurs or rubs Abdomen: soft, non-tender, nondistended, normal bowel sounds Back: no vertebral tenderness, no CVAT Extremities: no deformities, moves all extremities symmetrically Neuro: Awake, alert, oriented, normal speech, cranial nerves intact, moves all extremities symmetrically Psych: Pleasant, cooperative Medications Administered Discontinued Medications Generic Name Dose Route Start Last Admin Trade Name Ismael PRN Reason Stop Dose Admin Diphenhydramine HCl 50 mg 03/01/24 21:21 03/01/24 21:35 Diphenhydramine Hcl 50 Mg/Ml Vial IVPUSH 03/01/24 21:22 50 mg ONCE STA Administration Hydromorphone HCl 1 mg 03/01/24 21:21 03/01/24 21:35 Hydromorphone Hcl 1 Mg/Ml Syringe IVPUSH 03/01/24 21:22 1 mg ONCE STA Administration Protocol Hydromorphone HCl 1 mg 03/01/24 22:27 03/01/24 22:34 Hydromorphone Hcl 1 Mg/Ml Syringe IVPUSH 03/01/24 22:28 1 mg ONCE STA Administration Protocol Sodium Chloride 1,000 mls @ 999 mls/hr 03/01/24 21:21 03/01/24 23:35 Ns IV 03/01/24 22:21 Infused .Q1H1M STA Infusion Metoclopramide HCl 10 mg 03/01/24 21:21 03/01/24 21:35 Metoclopramide Hcl 10 Mg/2 Ml Vial IVPUSH 03/01/24 21:22 10 mg ONCE STA Administration Morphine Sulfate 4 mg 03/01/24 23:24 03/01/24 23:32 Morphine Sulfate 4 Mg/Ml Cartridge IVPUSH 03/01/24 23:25 4 mg ONCE STA Administration Protocol Morphine Sulfate 4 mg 03/02/24 00:14 03/02/24 00:31 Morphine Sulfate 4 Mg/Ml Cartridge IVPUSH 03/02/24 00:15 4 mg ONCE STA Administration Protocol Ondansetron HCl 4 mg 03/02/24 00:14 03/02/24 00:30 Ondansetron Hcl 4 Mg/2 Ml Vial IVPUSH 03/02/24 00:15 4 mg ONCE ONE Administration Medical Decision Making Medical Decision Making MDM Narrative: 48-year-old female with a history cervical cancer, avascular necrosis of the left hip, carcinoid tumor, seizure, depression, hemorrhagic CVA with residual left-sided weakness, chronic back pain, migraines who presents emergency department for evaluation of 2 days of a migraine headache with associated nausea, vomiting, photophobia, photophobia. Pain is located diffusely throughout her head and is greater than 10/10. Vital signs revealed an elevated blood pressure. Exam revealed that she was in distress secondary to her headache but her neurologic exam Differential diagnosis: ?Includes but is not limited to cerebral bleed, stroke, giant cell arteritis, meningitis, migraine headache, nonspecific headache Following evaluation was ordered: Cardiac monitoring, O2 saturation monitoring, IV insert Patient was initially treated with the following: Normal saline, Dilaudid 1 mg IV, Reglan 10 mg IV, Benadryl 50 mg IV Course: 02:00 The patient got only minimal improvement with the initial treatment. The patient's required a total of Dilaudid 1 mg IV x2 and morphine 4 mg IV x2. She also was treated with Zofran 4 mg IV x1. Patient is feeling significantly better but her headache is not completely resolved. Patient was advised to take Tylenol for her pain and for pain not relieved by Tylenol she was prescribed morphine 15 mg every 6 hours as needed for pain. She was also prescribed Zofran ODT 4 mg every 6 hours as needed for nausea and vomiting. Patient was given printed and verbal instructions and discharged home in the care of her family. Admission/Observation Consideration of admission/observation: Escalation of care including admission/observation considered Critical Care Time Critical Care Time Critical Care Time: Yes Total Critical Care Time: 35 Attestation: Critical Care: The patient was critically ill with a high probability of imminent or life threatening deterioration. I spent greater than 30 minutes of discontinuous time evaluating the patient,delivering critical care at the bedside, discussing and evaluating pertinent data with consultants. Critical care time does not include time spent performing separately billable procedures or teaching. Total time spent performing critical care was 35 minutes. Discharge Plan Discharge Clinical Impression: Migraine Patient Disposition: Home, Self-Care Instructions: Migraine Headache (ED) Additional Instructions: Your symptoms are consistent with a bad migraine headache. Take Tylenol (acetaminophen) 2 pills every 6 hours as needed for pain. For pain not relieved by Tylenol take morphine 15 mg pills, 1 pill every 6 hours as needed for pain. This medication will make you sleepy, do not drive or work while taking this medication. Morphine is a narcotic medication and can be addicting. If you are concerned about addiction you can ask the pharmacist for less pills or do not get this prescription filled. Take Zofran ODT 4 mg pills, 1 pill dissolved in your mouth every 8 hours as needed for nausea and vomiting. Follow-up with your doctor in 2 days. Please return to the emergency department if your symptoms get worse or if you develop any symptoms that are concerning to you. You should follow-up with the pain management clinic and [place] to see if lina noel can restart your injections for your migraine headaches. Prescriptions: New acetaminophen [Tylenol Extra Strength] 500 mg tablet 1,000 mg PO Q6H PRN (Reason: fever or pain) Qty: 20 0RF morphine 15 mg tablet 15 mg PO Q6H PRN (Reason: pain) Qty: 10 0RF Rx Instructions: The patient may ask for partial fill; Partial Fill upon patient request. ondansetron 4 mg tablet,disintegrating 4 mg PO Q6-8H PRN (Reason: nausea and vomiting) Qty: 14 0RF No Action atorvastatin 40 mg tablet 1 tab PO DAILY venlafaxine 37.5 mg capsule,extended release 24hr 1 cap PO DAILY quetiapine 300 mg tablet 1 tab PO BEDTIME clonazepam 0.5 mg tablet 0.5 - 1 tab PO BID PRN (Reason: panic attack) venlafaxine 150 mg capsule,extended release 24hr 150 cap PO DAILY hydroxyzine pamoate 50 mg capsule 1 cap PO TID albuterol sulfate [Ventolin HFA] 90 mcg/actuation HFA aerosol inhaler 2 puff PO Q4H PRN (Reason: wheezing) albuterol sulfate 90 mcg/actuation HFA aerosol inhaler 2 puff PO Q4H PRN (Reason: wheezing) topiramate 100 mg tablet 100 mg PO TID PRN (Reason: Anxiety) loratadine 10 mg tablet 1 tab PO DAILY PRN (Reason: allergies) prazosin 2 mg capsule 1 cap PO BEDTIME fluticasone propionate [Flovent HFA] 110 mcg/actuation HFA aerosol inhaler 1 puff PO BID tizanidine 6 mg capsule 1 cap PO TID quetiapine 50 mg tablet 1 tab PO BID PRN (Reason: Anxiety) lidocaine 5 % ointment 1 g topical BID PRN (Reason: Back Pain) Vraylar 1.5 mg capsule 1 cap PO DAILY Vraylar 3 mg capsule 1 cap PO DAILY DermacinRx Penetral 0.025 % cream 2 - 4 g topical BID ondansetron 4 mg tablet,disintegrating 4 mg PO Q8H PRN (Reason: nausea and vomiting) Qty: 20 0RF acetaminophen 500 mg capsule 500 mg PO Q6H PRN (Reason: pain) Qty: 10 0RF butenafine [Lotrimin Ultra] 1 % cream 1 appl topical BID 7 Days Qty: 30 0RF Rx Instructions: Apply to affected area acetaminophen [Tylenol Extra Strength] 500 mg tablet 500 mg PO Q6H PRN (Reason: fever or pain) Qty: 30 0RF Print Language: Stateless
[2024-03-01] MEDS: Metoclopramide HCl 10 MG/2 ML VIAL IVPUSH (21:35)
[2024-03-01] MEDS: 0.9 % Sodium Chloride 1,000 ML 999 ML IV (21:35)
[2024-03-01] MEDS: HYDROmorphone HCl 1 MG/ML SYRINGE IVPUSH ×2 (21:35→22:34)
[2024-03-01] MEDS: diphenhydrAMINE HCL 50 MG/ML VIAL IVPUSH (21:35)
[2024-03-01 22:09] VITALS: BP 114/76; PULSE 68; RESP 16; TEMP 36.6; O2SAT 95
[2024-03-01] MEDS: Morphine Sulfate 4 MG/ML CARTRIDGE IVPUSH (23:32)
[2024-03-02 00:29] VITALS: BP 125/73; PULSE 65; RESP 15; TEMP 36.6; O2SAT 98
[2024-03-02] MEDS: ondansetron HCL 4 MG/2 ML VIAL IVPUSH (00:30)
[2024-03-02 00:31] VITALS: RESP 15
[2024-03-02] MEDS: Morphine Sulfate 4 MG/ML CARTRIDGE IVPUSH (00:31)
[2024-03-02 02:10] VITALS: BP 115/72; PULSE 70; RESP 19; TEMP 36.9; O2SAT 94
[2024-03-02 02:14] VITALS: BP 115/72; PULSE 70; RESP 19; TEMP 36.9; O2SAT 94
== END 2024-03-02 02:15 | disposition home or self-care (01) ==
PROVIDERS: Emergency Provider Emergency Medicine Emergency Medical Services
DX: G43.909 Migraine, unspecified, not intractable, without status migrainosus (principal); R11.2 Nausea with vomiting, unspecified; R42 Dizziness and giddiness; Z79.899 Other long term (current) drug therapy
CPT/HCPCS: 96360; 96361; 96374; 96375; 96376; 99285; J1170; J1200; J2270; J2405; J2765

== ENCOUNTER 2024-03-10 17:28 | Emergency (ER) | payer OTHER, SELFPAY ==
--- NOTE | ~2024-03-10 | CT_ITS ---
EXAMINATION: CT HEAD WITHOUT CONTRAST CLINICAL INFORMATION: Headache, history of CVA COMPARISON: None available. TECHNIQUE: Contiguous axial imaging was performed from the skull base to vertex without intravenous administration of contrast. This CT examination was performed using dose optimization techniques as appropriate, variously including the following: *Automated exposure control *Adjustment of mA and/or kV according to patient size (this includes techniques or standardized protocols for targeted exams where dose is matched to indication/reason for exam; i.e. extremities or head) *Use of iterative reconstruction technique DLP: 779 mGy-cm FINDINGS: There is no acute intra-axial, extra-axial bleed, masses or midline shift. There is no acute infarction in evolution. There is no edema. Bone windows reveal no calvarial abnormality. There is no scalp abnormality. Bilateral paranasal sinuses and mastoid air cells are well-aerated. CT/CT head/brain wo IV con IMPRESSION: No acute intracranial process seen.
--- NOTE | ~2024-03-10 | XR_ITS ---
EXAMINATION: XR CHEST CLINICAL INFORMATION: Central chest pain COMPARISON: 05/03/2021 TECHNIQUE: 2 views of the chest were obtained. FINDINGS: No significant abnormality is noted involving the heart, lungs, mediastinum, bony thorax or soft tissues. XR/XR chest 2V IMPRESSION: Unremarkable examination.
--- NOTE | 2024-03-10 17:31 | ECG_ITS ---
Test Reason : CHEST PAIN Blood Pressure : / mmHG Vent. Rate : 092 BPM Atrial Rate : 092 BPM P-R Int : 190 ms QRS Dur : 084 ms QT Int : 370 ms P-R-T Axes : 044 040 048 degrees QTc Int : 457 ms Normal sinus rhythm Normal ECG When compared with ECG of 24-AUG-2021 02:58, No significant change was found Referred By: Mariela Devine Electronically Signed By:TONE NAYAK MD
[2024-03-10 17:47] VITALS: BP 136/88; PULSE 91; RESP 18; TEMP 36.8; O2SAT 98; BMI 16.6
--- NOTE | 2024-03-10 17:52 | ED.CHESTPAIN ---
HPI - Chest Pain General Chief Complaint: Chest Pain Stated Complaint: Chest pain/Migraine Time Seen by Provider: 03/10/24 21:20 Source: patient Mode of arrival: ambulatory Limitations: no limitations History of Present Illness ED Provider: cody WALLER narrative: Patient's history of migraine been here multiple times comes here with a headache started yesterday localized to frontal area radiating to the whole add with nausea photosensitivity vomited 2 times also complaining of chest pain lasted only for few minutes no fever no chills no upper respiratory symptoms Related Data Home Medications ?Medication ?Instructions ?Recorded ?Confirmed albuterol sulfate 90 mcg/actuation 2 puff PO Q4H PRN wheezing 01/20/21 01/24/22 aerosol inhaler albuterol sulfate 90 mcg/actuation 2 puff PO Q4H PRN wheezing 01/20/21 01/24/22 aerosol inhaler (Ventolin HFA) atorvastatin 40 mg tablet 1 tab PO DAILY 01/20/21 01/24/22 capsicum oleoresin 0.025 % topical 2 - 4 g topical BID 01/20/21 01/24/22 cream (DermacinRx Penetral) cariprazine 1.5 mg capsule 1 cap PO DAILY 01/20/21 01/24/22 (Vraylar) cariprazine 3 mg capsule (Vraylar) 1 cap PO DAILY 01/20/21 01/24/22 clonazepam 0.5 mg tablet 0.5 - 1 tab PO BID PRN panic attack 01/20/21 01/24/22 fluticasone propionate 110 1 puff PO BID 01/20/21 01/24/22 mcg/actuation HFA aerosol inhaler (Flovent HFA) hydroxyzine pamoate 50 mg capsule 1 cap PO TID 01/20/21 01/24/22 lidocaine 5 % topical ointment 1 g topical BID PRN Back Pain 01/20/21 01/24/22 loratadine 10 mg tablet 1 tab PO DAILY PRN allergies 01/20/21 01/24/22 prazosin 2 mg capsule 1 cap PO BEDTIME 01/20/21 01/24/22 quetiapine 300 mg tablet 1 tab PO BEDTIME 01/20/21 01/24/22 quetiapine 50 mg tablet 1 tab PO BID PRN Anxiety 01/20/21 01/24/22 tizanidine 6 mg capsule 1 cap PO TID 01/20/21 01/24/22 topiramate 100 mg tablet 100 mg PO TID PRN Anxiety 01/20/21 01/24/22 venlafaxine 150 mg 150 cap PO DAILY 01/20/21 01/24/22 capsule,extended release 24 hr venlafaxine 37.5 mg 1 cap PO DAILY 01/20/21 01/24/22 capsule,extended release 24 hr Previous Rx's ?Medication ?Instructions ?Recorded ondansetron 4 mg disintegrating 4 mg PO Q8H PRN nausea and 06/03/20 tablet vomiting #20 tabs acetaminophen 500 mg capsule 500 mg PO Q6H PRN pain #10 caps 03/18/21 butenafine 1 % topical cream 1 appl topical BID 1 week #30 grams 03/18/21 (Lotrimin Ultra) acetaminophen 500 mg tablet 500 mg PO Q6H PRN fever or pain 08/23/21 (Tylenol Extra Strength) #30 tabs acetaminophen 500 mg tablet 1,000 mg (2 x 500 mg) PO Q6H PRN 03/02/24 (Tylenol Extra Strength) fever or pain #20 tabs morphine 15 mg immediate release 15 mg PO Q6H PRN pain #10 tabs 03/02/24 tablet ondansetron 4 mg disintegrating 4 mg PO Q6-8H PRN nausea and 03/02/24 tablet vomiting #14 tabs tlvwcbubux-trzqjvwspafcu-ftrtozef 1 tab PO Q6H PRN haeadace #20 tabs 03/11/24 50 mg-325 mg-40 mg tablet Allergies Allergy/AdvReac Type Severity Reaction Status Date / Time aspirin [ASPIRIN] Allergy Unknown ASTHMA Verified 03/10/24 17:48 gabapentin [From NEURONTIN] Allergy Unknown SI Verified 03/10/24 17:48 ibuprofen Allergy Unknown Unknown Verified 03/10/24 17:48 nortriptyline [NORTRIPTYLINE] Allergy Unknown HIVES Verified 03/10/24 17:48 NSAIDS (Non-Steroidal Allergy Unknown BLEEDING/ Verified 03/10/24 17:48 Anti-Inflamma ASTHMA [NSAIDS] EXACERBATION Sulfa (Sulfonamide Allergy Unknown DEPRESSION Verified 03/10/24 17:48 Antibiotics) [SULFA (SULFONAMIDE ANTIBIOTICS)] tramadol [TRAMADOL] Allergy Unknown WHEEZES Verified 03/10/24 17:48 enoxaparin AdvReac Severe STATES SHE Verified 03/10/24 17:48 HAS SEVERE BLEEDING heparin [HEPARIN] AdvReac Severe STATES SHE Verified 03/10/24 17:48 HAS SEVERE BLEEDING SEAFOOD Allergy Intermediate BREATHING Uncoded 03/01/24 20:49 BLOOD THINNERS Allergy Unknown UNABLE DUE Uncoded 03/01/24 20:49 TO STROKE Review of Systems Review of Systems: Yes all other systems are reviewed and are negative PMFSH Past Medical History Medical History Toe fracture, right Cervical cancer Avascular necrosis of bone of left hip Carcinoid tumor Seizures Depression Hemorrhagic cerebrovascular accident (CVA) Chronic back pain Migraines Surgical History History of appendectomy H/O bilateral salpingo-oophorectomy History of hysterectomy Family History Family History Father Cancer of kidney Paternal Uncle Colon cancer Paternal Uncle Cancer Social History Social History Household Members: None Housing: Apartment Are you a primary healthcare management to a significant other at home: No Do you presently have visiting nurse or other home services: No Alcohol intake: unknown Patient Tobacco Use Status: Tobacco use Unknown Tobacco use type: Cigarette Smoked in Last 30 Days: Yes Use of substances other than those prescribed or required for medical reasons: No Advance Directives: No Advance Directives Information Provided: No Do you have a plan to hurt others: No Plan service: No Current occupational status: disabled Physical Exam Vital Signs: Vital Signs: Last Vital Signs Temp 98.2 F 03/10/24 17:47 Pulse 91 03/10/24 17:47 Resp 18 03/10/24 17:47 BP 136/88 03/10/24 17:47 Pulse Ox 98 03/10/24 17:47 O2 Del Method Room Air 03/10/24 17:47 BMI result Body Mass Index 16.6 Appearance: Alert. Oriented X3. No acute distress. Eyes: PERRLA, No Nystagmus ENT: Pharynx normal. Oral Mucosa moist Neck: Normal inspection. Neck supple. CVS: Normal heart rate and rhythm. Pulses normal. Respiratory: No respiratory distress. Equal air entry bilateral, no wheezing/rales/rhonchi Abdomen: Soft and nontender. Bowel sounds are present, no mass palpable, no CVA tenderness Skin: Skin warm and dry. Normal skin color. Normal skin turgor. Extremities: No lower extremity edema. No calf tenderness Neuro: Oriented X 3. No motor deficit. No sensory deficit.No cerebellar signs , cranial nerves II-XII intact Course Course Course Narrative: This is a Rapid Medical Examination (RME) performed by Darryl Devine PA-C in triage. Full HPI, ROS, assessment and treatment plan per primary provider in the Main ED. 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 feels like someone is sitting on her chest pain. no radiation. reports hx of mild [place] . assoc nausea w/o vomiting. also admits to diffuse 05/14 COLLAZO x3 days. denies dizziness, vision changes. Plan: labs, ekg, ct scan Medications Administered Discontinued Medications Generic Name Dose Route Start Last Admin Trade Name Freq PRN Reason Stop Dose Admin Acetaminophen/Butalbital/Caffeine 1 tab 03/10/24 21:50 03/10/24 22:24 Butalb/Acetamin/Caff 50/325/40 Tablet PO 03/10/24 21:51 1 tab ONCE ONE Administration Diphenhydramine HCl 50 mg 03/10/24 23:25 03/10/24 23:31 Diphenhydramine Hcl 50 Mg/Ml Vial IVPUSH 03/10/24 23:26 50 mg ONCE ONE Administration Sodium Chloride 1,000 mls @ 999 mls/hr 03/10/24 23:27 03/10/24 23:31 Ns IV 03/11/24 00:27 999 mls/hr .Q1H1M ONE Administration Lorazepam 1 mg 03/10/24 23:25 03/10/24 23:30 Lorazepam 2 Mg/Ml Vial IVPUSH 03/10/24 23:26 1 mg ONCE ONE Administration Metoclopramide HCl 10 mg 03/10/24 23:25 03/10/24 23:31 Metoclopramide Hcl 10 Mg/2 Ml Vial IVPUSH 03/10/24 23:26 10 mg ONCE ONE Administration Ondansetron HCl 4 mg 03/10/24 21:50 03/10/24 22:24 Ondansetron Odt 4 Mg Tab.Raaddis TRANSLINGU 03/10/24 21:51 4 mg ONCE ONE Administration Sumatriptan Succinate 6 mg 03/10/24 21:50 03/10/24 22:24 Sumatriptan Succinate 6 Mg/0.5 Ml Vial SUBCUT 03/10/24 21:51 6 mg ONCE ONE Administration Medical Decision Making Medical Decision Making [facility] Narrative: Patient with frequent ER visits for migraine requiring Dilaudid/morphine asking for IV medication will try Imitrex and non IV medication first. Patient is insisting to get IV medications asking for stronger pain medicine opiate dependence suspected head CT is negative 0030 patient is feeling much better at this time will discharge patient home on Fioricet Differential Diagnosis Differential Diagnoses: The differential diagnosis associated with the presentation includes Migraine headache/SDH/SAH Lab Data [facility] Lab Attestation statement: I reviewed the patient's lab results. 03/10/24 18:16 03/10/24 18:16 Labs: Lab Results 03/10/24 03/10/24 03/10/24 Range/Units 18:14 18:16 21:02 WBC 12.1 H (4.8-10.8) X10*3/uL RBC 4.95 (4.20-5.50) X10*6/uL Hgb 13.9 (12.0-16.0) g/dl Hct 40.9 (37.0-47.0) % MCV 82.6 (80.0-98.0) fL MCH 28.1 (27.0-33.0) pg MCHC 34.0 (31.0-35.0) g/dl RDW 13.8 (11.0-16.0) % Plt Count 233 (160-400) X10*3/uL MPV 10.2 (9.4-12.3) fL Immature Gran % (Auto) 0.7 H (0.0-0.4) % Neut % (Auto) 71.1 (45-73) % Lymph % (Auto) 23.5 (20-40) % Stone % (Auto) 3.8 (2-11) % Eos % (Auto) 0.7 (0-4) % Baso % (Auto) 0.2 (0-2) % Lymph # (Auto) 2.8 (1.2-4.9) X10*3/uL Stone # (Auto) 0.5 (0.1-1.2) X10*3/uL Eos # (Auto) 0.1 (0.0-0.4) X10*3/uL Baso # (Auto) 0.0 (0.0-0.2) X10*3/uL Abs Immat Gran (auto) 0.08 H (0.00-0.03) X10*3/uL Absolute Neuts (auto) 8.6 H (2.0-8.3) x10*3/uL Absolute Nucleated RBC 0.000 (0.0-0.012) X10*3/uL Nucleated RBC % (auto) 0.0 (0.0-0.2) /100WBC PT 12.6 (11.1-13.3) SEC INR 1.0 (0.9-1.1) Sodium 143 (135-145) mmol/L Potassium 3.5 (3.3-5.1) mmol/L Chloride 109 H (96-108) mmol/L Carbon Dioxide 22 (22-29) mmol/L Anion Gap 16 (12-20) BUN 14 (9-16) mg/dL Creatinine 1.02 (0.5-1.4) mg/dL Estim Creat Clear Calc 49.0 Estimated GFR 58 Random Glucose 115 (60-115) mg/dL Calcium 9.8 D (8.4-10.2) mg/dL Magnesium 1.9 (1.6-2.6) mg/dL Total Bilirubin 0.2 (0.0-1.0) mg/dL AST 14 (5-31) U/L ALT 11 (0-31) U/L Alkaline Phosphatase 122 H (39-117) U/L Troponin I High Sens < 2.7 (<3.5-17.0) ng/L B-Natriuretic Peptide 96 (<100) pg/mL Total Protein 7.5 (6.5-8.0) g/dL Albumin 4.2 (3.5-5.0) g/dL Lipase 62 (8-78) U/L Urine Test NEGATIVE (NEGATIVE) Influenza Type A (PCR) NEGATIVE (Negative) Influenza Type B (PCR) NEGATIVE (Negative) RSV RNA Qual (PCR) NEGATIVE (Negative) SARS-CoV-2 RNA (RT-PCR) NEGATIVE (Negative) Independent Interpretation I performed an independent interpretation of an: EKG and CT Scan Interpretation: Normal sinus rhythm heart rate 92 beats per minute normal interval normal axis no acute ST T wave changes Radiology Impression Discussion of test interpretation with radiology: I have reviewed the radiologist's reading. Radiologist Impression: Normal CT scan of the head Discharge Plan Discharge Clinical Impression: Headache, migraine Patient Disposition: Home, Self-Care Instructions: Migraine Headache (ED) Additional Instructions: Take medication as prescribed for migraine and follow up with your PCP for further management Prescriptions: New yrqpasrgom-kmnjaxsqldwhy-aqjx 50-325-40 mg tablet 1 tab PO Q6H PRN (Reason: haeadace) Qty: 20 0RF No Action atorvastatin 40 mg tablet 1 tab PO DAILY venlafaxine 37.5 mg capsule,extended release 24hr 1 cap PO DAILY quetiapine 300 mg tablet 1 tab PO BEDTIME clonazepam 0.5 mg tablet 0.5 - 1 tab PO BID PRN (Reason: panic attack) venlafaxine 150 mg capsule,extended release 24hr 150 cap PO DAILY hydroxyzine pamoate 50 mg capsule 1 cap PO TID albuterol sulfate [Ventolin HFA] 90 mcg/actuation HFA aerosol inhaler 2 puff PO Q4H PRN (Reason: wheezing) albuterol sulfate 90 mcg/actuation HFA aerosol inhaler 2 puff PO Q4H PRN (Reason: wheezing) topiramate 100 mg tablet 100 mg PO TID PRN (Reason: Anxiety) loratadine 10 mg tablet 1 tab PO DAILY PRN (Reason: allergies) prazosin 2 mg capsule 1 cap PO BEDTIME fluticasone propionate [Flovent HFA] 110 mcg/actuation HFA aerosol inhaler 1 puff PO BID tizanidine 6 mg capsule 1 cap PO TID quetiapine 50 mg tablet 1 tab PO BID PRN (Reason: Anxiety) lidocaine 5 % ointment 1 g topical BID PRN (Reason: Back Pain) Vraylar 1.5 mg capsule 1 cap PO DAILY Vraylar 3 mg capsule 1 cap PO DAILY DermacinRx Penetral 0.025 % cream 2 - 4 g topical BID ondansetron 4 mg tablet,disintegrating 4 mg PO Q8H PRN (Reason: nausea and vomiting) Qty: 20 0RF acetaminophen 500 mg capsule 500 mg PO Q6H PRN (Reason: pain) Qty: 10 0RF butenafine [Lotrimin Ultra] 1 % cream 1 appl topical BID 7 Days Qty: 30 0RF Rx Instructions: Apply to affected area acetaminophen [Tylenol Extra Strength] 500 mg tablet 500 mg PO Q6H PRN (Reason: fever or pain) Qty: 30 0RF acetaminophen [Tylenol Extra Strength] 500 mg tablet 1,000 mg PO Q6H PRN (Reason: fever or pain) Qty: 20 0RF morphine 15 mg tablet 15 mg PO Q6H PRN (Reason: pain) Qty: 10 0RF Rx Instructions: The patient may ask for partial fill; Partial Fill upon patient request. ondansetron 4 mg tablet,disintegrating 4 mg PO Q6-8H PRN (Reason: nausea and vomiting) Qty: 14 0RF Print Language: [place]
[2024-03-10 18:22] LABS: MANUAL DIFF FLAG NO
[2024-03-10 18:27] LABS: Basophils Percent Auto 0.2 % (0-2); Eosinophils Absolute Auto 0.1 X10*3/uL (0.0-0.4); Eosinophils Percent Auto 0.7 % (0-4); Hematocrit 40.9 % (37.0-47.0); Hemoglobin 13.9 g/dl (12.0-16.0); Imm Gran Abs Auto 0.08 X10*3/uL (0.00-0.03); Imm Gran Pct Auto 0.7 % (0.0-0.4); Lymphocytes Absolute Auto 2.8 X10*3/uL (1.2-4.9); Lymphocytes Percent Auto 23.5 % (20-40); Mean Corpuscular Hemoglobin 28.1 pg (27.0-33.0); Mean Corpuscular Volume 82.6 fL (80.0-98.0); Mean Platelet Volume 10.2 fL (9.4-12.3); Monocytes Absolute Auto 0.5 X10*3/uL (0.1-1.2); Monocytes Percent Auto 3.8 % (2-11); Neutrophils Absolute Auto 8.6 x10*3/uL (2.0-8.3); Neutrophils Percent Auto 71.1 % (45-73); Platelet Count 233 X10*3/uL (160-400); Red Blood Count 4.95 X10*6/uL (4.20-5.50); Red Cell Distribution Width 13.8 % (11.0-16.0); White Blood Count 12.1 X10*3/uL (4.8-10.8)
[2024-03-10 18:38] LABS: Prothrombin Time 12.6 SEC (11.1-13.3)
[2024-03-10 18:43] LABS: Alanine Aminotransferase 11 U/L (0-31); Albumin Level 4.2 g/dL (3.5-5.0); Alkaline Phosphatase 122 U/L (39-117); Anion Gap 16 (12-20); Aspartate Amino Transferase 14 U/L (5-31); Bilirubin Total 0.2 mg/dL (0.0-1.0); Blood Urea Nitrogen 14 mg/dL (9-16); Calcium 9.8 mg/dL (8.4-10.2); Carbon Dioxide 22 mmol/L (22-29); Chloride 109 mmol/L (96-108); Estimated Glomerular Filt Rate 58; Glucose Random 115 mg/dL (60-115); Lipase 62 U/L (8-78); Magnesium 1.9 mg/dL (1.6-2.6); Potassium 3.5 mmol/L (3.3-5.1); Sodium 143 mmol/L (135-145); Total Protein 7.5 g/dL (6.5-8.0)
[2024-03-10 18:44] LABS: B Type Natriuretic Peptide 96 pg/mL (<100)
[2024-03-10 18:51] LABS: Troponin-I High Sensitivity < 2.7 ng/L (<3.5-17.0)
[2024-03-10 19:00] LABS: Influenza A PCR NEGATIVE (Negative); Influenza B PCR NEGATIVE (Negative); Resp Syncy Virus RNA Qual PCR NEGATIVE (Negative); SARS COV2 PCR INHOUSE NEGATIVE (Negative)
[2024-03-10 21:16] LABS: UPreg QC Valid YES; Urine Pregnancy NEGATIVE (NEGATIVE)
[2024-03-10] MEDS: Butalb/Acetamin/Caff 50/325/40 TABLET 1 TAB PO (22:24)
[2024-03-10] MEDS: SUMAtriptan succinate 6 MG/0.5 ML VIAL SUBCUT (22:24)
[2024-03-10] MEDS: Ondansetron ODT 4 MG TAB.RAPDIS TRANSLINGU (22:24)
[2024-03-10] MEDS: LORazepam 2 MG/ML VIAL 1 MG IVPUSH (23:30)
[2024-03-10] MEDS: 0.9 % Sodium Chloride 1,000 ML 999 ML IV (23:31)
[2024-03-10] MEDS: Metoclopramide HCl 10 MG/2 ML VIAL IVPUSH (23:31)
[2024-03-10] MEDS: diphenhydrAMINE HCL 50 MG/ML VIAL IVPUSH (23:31)
[2024-03-11] VITALS: BP 128/80; PULSE 76; RESP 16; TEMP 36.8; O2SAT 100
[2024-03-11 01:12] VITALS: BP 128/80; PULSE 76; RESP 16; TEMP 36.8; O2SAT 100
== END 2024-03-11 01:13 | disposition home or self-care (01) ==
PROVIDERS: Physician Assistant Medical; Emergency Provider Internal Medicine
DX: G43.909 Migraine, unspecified, not intractable, without status migrainosus (principal); R07.9 Chest pain, unspecified; R11.10 Vomiting, unspecified; I69.954 Hemiplegia and hemiparesis following unspecified cerebrovascular disease affecting left non-dominant side; I10 Essential (primary) hypertension; Z03.818 Encounter for observation for suspected exposure to other biological agents ruled out
CPT/HCPCS: 0241U; 70450; 71046; 80053; 81025; 83690; 83735; 83880; 84484; 85025; 85610; 93005; 96361; 96372; 96374; 96375; 99285; J1200; J2060; J2765; J3030

== ENCOUNTER → 2024-03-10 17:31 | Outpatient (BNV) | payer OTHER, SELFPAY | PROVIDERS: Emergency Provider Internal Medicine; Visit Provider Internal Medicine Cardiovascular Disease | DX: R07.9 Chest pain, unspecified (principal) | CPT/HCPCS: 93010 ==